=== PATIENT | female | born 1990 | race Hispanic/Latino ===

== ENCOUNTER 2019-05-19 07:09 | Emergency (ER) | payer OTHER ==
[~2019-05-19] VITALS: Ht 160 cm; Wt 131.1 kg
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
[2019-05-19 07:59] VITALS: BP 129/79
== END 2019-05-19 07:58 | disposition home or self-care (01) ==
LOC: FSED 07:09
DX: K08.89 Other specified disorders of teeth and supporting structures (principal); F41.1 Generalized anxiety disorder
CPT/HCPCS: 99282

== ENCOUNTER 2019-10-19 10:55 | Emergency (ER) | payer OTHER ==
[~2019-10-19] VITALS: Ht 160 cm; Wt 141.7 kg
--- OUTSIDE RECORDS SUMMARY | 2019-10-19 10:58 | XMS REPORT | Summary of Care ---
Author Author [facility] - Health Organization [facility] - Health Address Unknown Phone Unavailable Care Team Providers Care Informatics Physician Name Role Phone MartinezMacrosChuck hawthornediane Del Valle PREMIUM REPRESENTATIVE PCP Reason for Visit * Reason Comments Assessment Appointment Encounter Details Care Team Description Date Type Department Jaspal Pérez CNM Assessment; Appointment 08/27/2019 Telephone [facility] [address] [place] [address] Allergies No Known Allergiesdocumented as of this encounter (statuses as of 08/29/2019) Medications End Date Status Medication Sig Dispensed Refills Start Date Active hydrOXYzine 25 mg tablet Take 25 mg by 0 mouth. Active metroNIDAZOLE 1 % gel 0 9 Active ALPRAZolam 2 mg tablet Take 2 mg by 0 mouth. Active ondansetron 8 mg Take 1 tablet 24 tablet 0 tabletIndications: PMS by mouth 9 (premenstrual syndrome) every 8 (eight) hours as needed for Nausea and Vomiting (N/V) (before and during menstrual cycle). Active lidocaine 4% 4 % (40 Apply 1 mL to 50 mL 0 mg/mL) topical area(s) as 9 solutionIndications: needed for Vaginal lesion Local anesthesia (pain). documented as of this encounter (statuses as of 08/29/2019) Active Problems Problem Noted Date Noncompliance 06/08/2018 GBS (group B Streptococcus carrier), +RV culture, currently 05/25/2018 Nausea and vomiting during prior to 22 weeks gestation 01/18/2018 Papanicolaou smear of cervix with low grade squamous intraepithelial lesion 03/25/2017 (LGSIL) Supervision of high-risk of young multigravida 01/07/2008 Overview: ICD10 Diagnosis Term Health Benefits Specialist Utility documented as of this encounter (statuses as of 08/29/2019) Resolved Problems Problem Noted Date Resolved Date Acute cystitis with hematuria 04/25/2018 06/08/2018 Insufficient care in third trimester 04/25/2018 06/08/2018 Trichomonal vulvovaginitis 03/26/2017 06/08/2018 General counseling for initiation of other contraceptive measures 03/20/2015 06/08/2018 Overview: dmpa initiated on 03/05- Well woman exam with routine gynecological exam 03/20/2015 06/08/2018 Overview: States had PAP this year ARELIS Obese 03/20/2015 06/08/2018 Dysmenorrhea 03/20/2015 06/08/2018 Dysmenorrhea 01/07/2008 03/20/2015 Obesity 01/07/2008 03/20/2015 Overview: ICD10 Diagnosis Term Health Benefits Specialist Utility documented as of this encounter (statuses as of 08/29/2019) Immunizations Name Administration Dates Next Due Influenza Virus Vaccine 11/11/2017 Quad IM 3+ YRS Tdap 04/25/2018 documented as of this encounter Social History Date Tobacco Use Types Packs/Day Years Used Never Smoker Smokeless Tobacco: Never Used Drinks/Week oz/Week Comments Alcohol Use 0 Standard drinks or equivalent 0.0 social. Last was 10/2017 Yes Sex Assigned at Date Recorded Not on file Industry Job Start Date Occupation Not on file Not on file Not on file Travel End Travel History Travel Start No recent travel history available. documented as of this encounter Last Filed Vital Signs Not on filedocumented in this encounter Plan of Treatment Health Maintenance Due Date Last Done Comments VARICELLA VACCINES (1 of 1990 2 - 2-dose childhood series) INFLUENZA VACCINE (#1) 2019 11/11/2017 PAP SMEAR 01/18/2022 01/18/2019, 03/05/2017, 08/15/2007, Additional history exists DTaP,Tdap,and Td Vaccines 04/25/2028 04/25/2018 (2 - Td) PNEUMOCOCCAL 0-64 YEARS Aged Out No longer eligible based COMBINED SERIES on patient's age to complete this topic documented as of this encounter Results Not on filedocumented in this encounter Insurance Type Payer Benefit Subscriber ID Effective Phone Address Plan / Dates Group Medicaid [facility] xxxxxxxxx 2017-P [address] MEDICAID HEALTH resent [id number] [place], [place] [address] Medicaid [id number] xxxxxxxxx 2015-P [phone] Dharmesh GRAY resent [id number] [place] [address] documented as of this encounter
[2019-10-19] MEDS ORDERED: IBUPROFEN 600 MG TAB PO STA (11:43)
[2019-10-19] MEDS ORDERED: ONDANSETRON HCL 4 MG ORAL DISINTEGRATING TAB PO ONE (11:45)
[2019-10-19] MEDS ORDERED: PENICILLIN G BENZATHINE LA 1.2 MU TBX IM STA (11:47)
[2019-10-19] MEDS ORDERED: ONDANSETRON HCL 4 MG ORAL DISINTEGRATING TAB ONE (11:49)
[2019-10-19] MEDS ORDERED: IBUPROFEN 600 MG TAB ONE (11:50)
--- NOTE | 2019-10-19 11:52 | NUR ---
Urine culture collected and sent to the lab for transport via manager research to the hospital lab.
[2019-10-19] MEDS ORDERED: PENICILLIN G BENZATHINE LA 1.2 MU TBX ONE (11:53)
[2019-10-19 11:58] VITALS: BP 134/73
[2019-10-19] MEDS ORDERED: TESSALON PERLE100 MG PO (12:01)
[2019-10-19] MEDS ORDERED: AUGMENTIN 875-1 EACH PO (12:01)
[2019-10-19] MEDS ORDERED: ZOFRAN4 MG SL (12:01)
[2019-10-19] MEDS ORDERED: TAMIFLU75 MG PO (12:01)
== END 2019-10-19 12:19 | disposition home or self-care (01) ==
LOC: FSED 10:55
DX: R50.9 Fever, unspecified (principal); R05 Cough; J11.1 Influenza due to unidentified influenza virus with other respiratory manifestations
CPT/HCPCS: 81003; 81025; 83518; 87086; 87400; 99283; J0561; Q0162

== ENCOUNTER 2019-10-31 12:42 | Emergency (ER) | payer OTHER ==
[~2019-10-31] VITALS: Ht 160 cm; Wt 141.5 kg
[~2019-10-31 12:42] MED LIST: AUGMENTIN 875-1 EACH PO; TAMIFLU75 MG PO; TESSALON PERLE100 MG PO; ZOFRAN4 MG SL
[2019-10-31] MEDS ORDERED: PENCILLIN V PO250 MG PO (13:19)
[2019-10-31] MEDS ORDERED: ULTRAM50 MG PO (13:20)
[2019-10-31] MEDS ORDERED: TYLENOL WITH C1 EACH PO (13:35)
== END 2019-10-31 13:30 | disposition home or self-care (01) ==
LOC: FSED 12:42
DX: K04.7 Periapical abscess without sinus (principal); K02.9 Dental caries, unspecified; F31.9 Bipolar disorder, unspecified
CPT/HCPCS: 99282

== ENCOUNTER 2019-12-24 13:46 | Emergency (ER) | payer OTHER ==
[~2019-12-24] VITALS: Ht 160 cm; Wt 147.4 kg
[~2019-12-24 13:46] MED LIST changes: +PENCILLIN V PO250 MG PO; +TYLENOL WITH C1 EACH PO; +ULTRAM50 MG PO
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
--- OUTSIDE RECORDS SUMMARY | 2019-12-24 13:49 | XMS REPORT | Summary of Care ---
Author Author [facility] Organization [facility] Address Unknown Phone Unavailable Encounter LETTY Bruno(MIGUEL) [id number] Date(s): 12/19/18 - 12/19/[address] [address]- Encounter Diagnosis Abscess, dental (Discharge Diagnosis) - 12/19/18 Bacterial upper respiratory infection (Discharge Diagnosis) - 12/19/18 Discharge Disposition: Home or Self Care Attending Physician: Katerin Madison MD Vital Signs 1 2 3 Most recent to oldest [Reference Range]: 97.9 DegF (12/19/18 9:34 AM) 98.1 DegF (12/19/18 7:21 AM) 98.1 DegF (12/19/18 6:19 AM) Temperature Oral [96.4-99.1 DegF] 119/60 mmHg (12/19/18 9:34 AM) 112/56 mmHg (12/19/18 7:21 AM) 131/84 mmHg (12/19/18 6:19 AM) Blood Pressure [90-140/60-90 mmHg] 18 BRMIN (12/19/18 9:34 AM) 20 BRMIN (12/19/18 7:21 AM) 22 BRMIN *HI* (12/19/18 6:19 AM) Respiratory Rate [14-20 BRMIN] 90 bpm (12/19/18 9:34 AM) 90 bpm (12/19/18 7:21 AM) 98 bpm (12/19/18 6:19 AM) Peripheral Pulse Rate [60-100 bpm] Problem List Condition Effective Dates Status Health Status Informan t Anxiety and Active depression(Confirmed ) Bipolar disease, Active chronic(Confirmed) Morbid Active obesity(Confirmed) (Confirmed) 06/20/18 - 06/21/18 Resolved (Confirmed) 06/15/07 - 03/01/08 Resolved Allergies, Adverse Reactions, Alerts No Known Medication Allergies Medications Augmentin 875 mg oral tablet 875 mg = 1 tab, PO, BID, # 14 tab, 0 Refill(s), [id number] Start Date: 12/19/18 Stop Date: 12/26/18 Status: Ordered Bromfed DM oral syrup 5 mL, PO, QID, # 100 mL, 0 Refill(s), [id number] Start Date: 12/19/18 Stop Date: 12/24/18 Status: Ordered ibuprofen 600 mg oral tablet 600 mg, PO, QID, PRN Pain, Take with food, X 5 day, # 20 tab, 0 Refill(s), [id number] Start Date: 12/19/18 Stop Date: 12/24/18 Status: Ordered Motrin 800 mg, Route: PO, Drug form: TAB, ONCE, Dosing Weight 137.273, kg, Priority: ST AT, Start date: 12/19/18 7:20:00 CDT, Stop date: 12/19/18 7:20:00 CDT Start Date: 12/19/18 Stop Date: 12/19/18 Status: Completed Results Most recent to 1 oldest [Reference Range]: Grp A Strep Scr Negative [Negative] (12/19/18 7:27 AM) Immunizations Given and Recorded Vaccine Date Status Refusal Reason measles/mumps/rubella virus vaccine 06/22/18 Gi luz maria Procedures Procedure Date Related Diagnosis Body Site Status Unremarkable Completed Social History Social History Type Response Substance Abuse Use: None. Sexual Sexually active: Yes. Exercise Exercise frequency: Daily. Employment/School Status: Unemployed. Alcohol Current, Frequency: 1-2 joselin es per month. Smoking Status Never smoker; Type: Cigaret jessica; Concerns about tobacco use in household: No; Exposure to Tobacco Smoke None; Cig arette Smoking Last 365 Days No; Reg Smoking Cessation Counseling No entered on: 12/19/18 Assessment and Plan No data available for this section
--- OUTSIDE RECORDS SUMMARY | 2019-12-24 13:49 | XMS REPORT | Summary of Care ---
Author Author [facility] Address Unknown Phone Unavailable Encounter LETTY Bruno([facility]) [id number] Date(s): 05/22/19 - 05/22/19 [facility] [address] [place] [address]- Encounter Diagnosis Mouth pain (Discharge Diagnosis) - 05/22/19 Discharge Disposition: Home or Self Care Attending Physician: Alessandro Wetzel MD Vital Signs Most recent to 1 oldest [Reference Range]: Height 160.02 cm (05/22/19 7:48 AM) Temperature Oral 97.9 DegF [96.4-99.1 DegF] (05/22/19 7:48 AM) Blood Pressure 110/78 mmHg [90-140/60-90 mmHg] (05/22/19 7:48 AM) Respiratory Rate 18 BRMIN [14-20 BRMIN] (05/22/19 7:48 AM) Peripheral Pulse 94 bpm Rate [60-100 bpm] (05/22/19 7:48 AM) Weight 146 kg (05/22/19 7:48 AM) Body Mass Index 57.02 m2 (05/22/19 7:48 AM) Problem List Condition Effective Dates Status Health Status Informan t Anxiety and Active depression(Confirmed ) Bipolar disease, Active chronic(Confirmed) Encounter for weight Active loss counseling(Confirmed ) Morbid Active obesity(Confirmed) (Confirmed) 06/15/07 - 03/01/08 Resolved (Confirmed) 06/20/18 - 06/21/18 Resolved Rosacea(Confirmed) Active Allergies, Adverse Reactions, Alerts No Known Medication Allergies Medications Tylenol with Codeine #4 oral tablet 1 tab, PO, BID, PRN pain, # 10 tab, 0 Refill(s) Start Date: 05/22/19 Stop Date: 05/26/19 Status: Ordered Xanax 2 mg oral tablet 2 mg = 1 tab, PO, BID, PRN anxiety, X 10 day, # 10 tab, 0 Refill(s) Start Date: 05/22/19 Stop Date: 06/01/19 Status: Ordered Results No data available for this section Immunizations Given and Recorded Vaccine Date Status Refusal Reason measles/mumps/rubella virus vaccine 06/22/18 Gi luz maria Procedures Procedure Date Related Diagnosis Body Site Status Unremarkable Completed Social History Social History Type Response Alcohol Current, Frequency: 1-2 joselin es per month. Employment/School Status: Unemployed. Exercise Exercise frequency: Daily. Sexual Sexually active: Yes. Substance Abuse Use: None. Smoking Status Never smoker; Type: Cigaret jessica; Concerns about tobacco use in household: No; Exposure to Tobacco Smoke None; Cig arette Smoking Last 365 Days No; Reg Smoking Cessation Counseling No entered on: 05/22/19 Assessment and Plan No data available for this section
--- OUTSIDE RECORDS SUMMARY | 2019-12-24 13:49 | XMS REPORT | Summary of Care ---
Author Author [facility] Organization [facility] Address Unknown Phone Unavailable Encounter HQ Encntr_alisaima(FIN) [id number] Date(s): 07/05/19 - 07/06/19 [facility] [place] [address] [place] [address]- [phone] Vital Signs No data available for this section Problem List Condition Effective Dates Status Health Status Informan t Anxiety and Active depression(Confirmed ) Bipolar disease, Active chronic(Confirmed) Encounter for weight Active loss counseling(Confirmed ) Morbid Active obesity(Confirmed) (Confirmed) 06/15/07 - 03/01/08 Resolved (Confirmed) 06/20/18 - 06/21/18 Resolved Rosacea(Confirmed) Active Allergies, Adverse Reactions, Alerts No Known Allergies Medications No data available for this section Results No data available for this section [...] Reg Smoking Cessation Counseling No entered on: 05/26/19 Assessment and Plan No data available for this section
--- OUTSIDE RECORDS SUMMARY | 2019-12-24 13:49 | XMS REPORT | Summary of Care ---
Author Author [facility] Organization [facility] Address Unknown Phone Unavailable Encounter LETTY Bruno(FIN) [id number] Date(s): 05/26/19 - 05/26/19 [facility] [place] [address] [place] [address]- [phone] Discharge Disposition: Home or Self Care Vital Signs Most recent to 1 oldest [Reference Range]: Height 154.94 cm (05/26/19 9:32 AM) Blood Pressure 110/59 mmHg [90-140/60-90 mmHg] (05/26/19 9:32 AM) Respiratory Rate 19 BRMIN [14-20 BRMIN] (05/26/19 9:32 AM) Peripheral Pulse 98 bpm Rate [60-100 bpm] (05/26/19 9:32 AM) Weight 145.057 kg (05/26/19 9:32 AM) Body Mass Index 60.42 m2 (05/26/19 9:32 AM) Problem List Condition Effective Dates Status Health Status Informan t Anxiety and Active depression(Confirmed ) Bipolar disease, Active chronic(Confirmed) Encounter for weight Active loss counseling(Confirmed ) Morbid Active obesity(Confirmed) (Confirmed) 06/15/07 - 03/01/08 Resolved (Confirmed) 06/20/18 - 06/21/18 Resolved Rosacea(Confirmed) Active Allergies, Adverse Reactions, Alerts No Known Allergies Medications hydrOXYzine hydrochloride 25 mg oral tablet 25 mg = 1 tab, PO, QID, PRN Anxiety, X 30 day, # 120 tab, 0 Refill(s), Pharmacy: [id number] Start Date: 05/26/19 Stop Date: 06/25/19 Status: Ordered SEROquel 100 mg oral tablet 100 mg = 1 tab, PO, BID, # 60 tab, 3 Refill(s), Pharmacy: [id number] Start Date: 05/26/19 Status: Ordered Results No data available for [...]
--- OUTSIDE RECORDS SUMMARY | 2019-12-24 13:49 | XMS REPORT | Summary of Care ---
Author Author [facility] Organization [facility] Address Unknown Phone Unavailable Encounter LETTY Bruno(MIGUEL) [id number] Date(s): 05/24/18 - 05/24/[address] [address]- Encounter Diagnosis contractions (Discharge Diagnosis) - 05/24/18 Unspecified infection of urinary tract in , third trimester (Final) - False labor before 37 completed weeks of gestation, third trimester (Final) - 05/27/18 35 weeks gestation of (Final) - Discharge Disposition: Home or Self Care Attending Physician: Torri Vernon MD Vital Signs 1 2 3 Most recent to oldest [Reference Range]: 162.56 cm (05/24/18 9:00 PM) Height 98.2 DegF (05/24/18 9:00 PM) 98.5 DegF (05/24/18 8:28 PM) Temperature Oral [96.4-99.1 DegF] 118/57 mmHg (05/24/18 10:05 PM) 111/71 mmHg (05/24/18 9:00 PM) 116/70 mmHg (05/24/18 8:28 PM) Blood Pressure [90-140/60-90 mmHg] 18 BRMIN (05/24/18 10:05 PM) 20 BRMIN (05/24/18 9:00 PM) 19 BRMIN (05/24/18 8:28 PM) Respiratory Rate [14-20 BRMIN] 125 bpm *HI* (05/24/18 9:00 PM) 121 bpm *HI* (05/24/18 8:28 PM) Peripheral Pulse Rate [60-100 bpm] 131 kg (05/24/18 9:00 PM) 129.545 kg (05/24/18 8:28 PM) Weight 49.57 m2 (05/24/18 9:00 PM) Body Mass Index Problem List Condition Effective Dates Status Health Status Informan t Anxiety and Active depression(Confirmed ) Bipolar disease, Active chronic(Confirmed) Morbid Active obesity(Confirmed) (Confirmed) 06/20/18 - 06/21/18 Resolved (Confirmed) 06/15/07 - 03/01/08 Resolved Allergies, Adverse Reactions, Alerts No Known Medication Allergies Medications Dulcolax Laxative 5 mg, PO, Daily, 0 Refill(s) Start Date: 05/24/18 Stop Date: 11/28/18 Status: Discontinued Flagyl 500 mg oral tablet 2,000 mg = 4 tab, PO, ONCE, # 4 tab, 1 Refill(s) Start Date: 05/24/18 Stop Date: 06/23/18 Status: Discontinued Keflex 500 mg oral capsule 500 mg = 1 cap, PO, QID, X 7 day, # 28 cap, 0 Refill(s) Start Date: 05/24/18 Stop Date: 05/31/18 Status: Completed promethazine 0 Refill(s) Start Date: 05/24/18 Stop Date: 06/23/18 Status: Discontinued Tylenol 1,000 mg, Route: PO, ONCE, Dosing Weight 131, kg, Start date: 05/24/18 21:52:00 CDT, Stop date: 05/24/18 21:52:00 CDT Start Date: 05/24/18 Stop Date: 05/24/18 Status: Completed Tylenol PO, 0 Refill(s) Start Date: 05/24/18 Stop Date: 11/28/18 Status: Discontinued Results Most recent to 1 oldest [Reference Range]: UA Trans Epi [<=0] OCC *NA* (05/24/18 9:22 PM) UA Bacteria [None Occasional /HPF Seen /HPF] *NA* (05/24/18 9:22 PM) UA Bili [Negative] Negative *NA* (05/24/18 9:22 PM) UA Blood [Negative] Moderate *ABN* (05/24/18 9:22 PM) UA Color [Yellow] Yellow *NA* (05/24/18 9:22 PM) UA Glucose [Negative Negative mg/dL mg/dL] *NA* (05/24/18 9:22 PM) UA Hyal Cast [0-2 3 /LPF /LPF] *HI* (05/24/18 9:22 PM) UA Ketones Negative *NA* (05/24/18 9:22 PM) UA Leuk Est Large [Negative] *ABN* (05/24/18 9:22 PM) UA Mucus [None Seen Few /LPF /LPF] *NA* (05/24/18 9:22 PM) UA Nitrite Negative [Negative] (05/24/18 9:22 PM) UA pH [5.0-8.0] 5.0 (05/24/18 9:22 PM) UA Protein [Negative Negative mg/dL mg/dL] (05/24/18 9:22 PM) UA RBC [0-2 /HPF] 17 /HPF *HI* (05/24/18 9:22 PM) UA Spec Grav 1.017 [<=1.030] (05/24/18 9:22 PM) UA Sq Epi [Few /LPF] Few /LPF *NA* (05/24/18 9:22 PM) UA Trichomonas [None Many /HPF Seen /HPF] *ABN* (05/24/18 9:22 PM) UA Turbidity [Clear] Slight *ABN* (05/24/18 9:22 PM) UA Urobilinogen 2.0 mg/dL [0.1-1.0 mg/dL] *HI* (05/24/18 9:22 PM) UA WBC [0-5 /HPF] 15 /HPF *HI* (05/24/18 9:22 PM) Micro? Performed (05/24/18 9:22 PM) Immunizations Given and Recorded Vaccine Date Status [...] Reg Smoking Cessation Counseling No entered on: 11/28/18 Assessment and Plan No data available for this section
--- OUTSIDE RECORDS SUMMARY | 2019-12-24 13:49 | XMS REPORT | Summary of Care ---
Author Author [facility] Organization [facility] Address Unknown Phone Unavailable Encounter LETTY Bruno(FIN) [id number] Date(s): 10/06/19 - 10/06/19 [facility] [address] [place] [address]- [phone] Discharge Disposition: Home or Self Care Attending Physician: Sheryl Richards MD Vital Signs Most recent to 1 oldest [Reference Range]: Temperature Oral 98.3 DegF [96.4-99.1 DegF] (10/06/19 3:16 PM) Blood Pressure 136/89 mmHg [90-140/60-90 mmHg] (10/06/19 3:16 PM) Peripheral Pulse 72 bpm Rate [60-100 bpm] (10/06/19 3:16 PM) Problem List Condition Effective Dates Status Health Status Informan t Anxiety and Active depression(Confirmed ) Bipolar disease, Active chronic(Confirmed) Encounter for weight Active loss counseling(Confirmed ) Morbid Active obesity(Confirmed) (Confirmed) 06/15/07 - 03/01/08 Resolved (Confirmed) 06/20/18 - 06/21/18 Resolved Rosacea(Confirmed) Active Allergies, Adverse Reactions, Alerts No Known Allergies Medications Augmentin 875 mg oral tablet 875 mg = 1 tab, PO, BID, X 10 day, # 20 tab, 0 Refill(s), Pharmacy: [facility]/pharmacy #[id number] Start Date: 10/06/19 Stop Date: 10/16/19 Status: Ordered ibuprofen 800 mg oral tablet 800 mg = 1 tab, PO, TID, 0 Refill(s) Start Date: 10/06/19 Status: Ordered Tylenol with Codeine #3 oral tablet 1 tab, PO, TID, PRN Pain, NEEDED, X 5 day, # 15 tab, 0 Refill(s), Pharmacy: [facility]/pharmacy #[id number] Start Date: 10/06/19 Stop Date: 10/11/19 Status: Ordered Results No data available for [...] Reg Smoking Cessation Counseling No entered on: 10/06/19 Assessment and Plan No data available for this section
--- OUTSIDE RECORDS SUMMARY | 2019-12-24 13:49 | XMS REPORT | Summary of Care ---
Author Author [facility] Organization [facility] Address Unknown Phone Unavailable Encounter LETTY Bruno(MIGUEL) [id number] Date(s): 08/08/17 - 08/08/17 [facility] [address] [place] [address]- Discharge Diagnosis: Drug-seeking behavior Discharge Disposition: Home or Self Care Attending Physician: Shaun Swanson MD Vital Signs Most recent to 1 2 oldest [Reference Range]: Temperature Oral 98.5 DegF 98.4 DegF [96.4-99.1 DegF] (08/08/17 11:35 PM) (08/08/17 9:39 PM) Blood Pressure 129/78 mmHg 136/83 mmHg [90-140/60-90 mmHg] (08/08/17 11:35 PM) (08/08/17 9:39 PM ) Respiratory Rate 18 BRMIN 18 BRMIN [14-20 BRMIN] (08/08/17 11:35 PM) (08/08/17 9:39 PM) Peripheral Pulse 97 bpm 107 bpm Rate [60-100 bpm] (08/08/17 11:35 PM) *HI* (08/08/17 9:39 PM) Weight 127.273 kg (08/08/17 9:39 PM) Problem List No data available for this section Allergies, Adverse Reactions, Alerts Substance Reaction Severity Status NKDA Active Medications Motrin 800 mg, Route: PO, Drug form: TAB, ONCE, Dosing Weight 127.273, kg, Priority: ST AT, Start date: 08/08/17 23:10:00 ITALIAN LECTURER, Stop date: 08/08/17 23:10:00 ITALIAN LECTURER Start Date: 08/08/17 Stop Date: 08/08/17 Status: Completed [place] 10/325 oral tablet 1 tab, Route: PO, Drug Form: TAB, Dosing Weight 127.273, kg, ONCE, STAT, Start d ate: 08/08/17 23:10:00 ITALIAN LECTURER, Stop date: 08/08/17 23:10:00 ITALIAN LECTURER Start Date: 08/08/17 Stop Date: 08/08/17 Status: Completed Results No data available for this section Immunizations No data available for this section Procedures No data available for this section Social History Social History Type Response Smoking Status Never smoker; Exposure to T obacco Smoke None; Cigarette Smoking Last 365 Days No; Reg Smoking Cessation Counseli hema No Assessment and Plan No data available for this section
--- OUTSIDE RECORDS SUMMARY | 2019-12-24 13:49 | XMS REPORT | Summary of Care ---
Author Author [facility] Organization [facility] Address Unknown Phone Unavailable Encounter [facility] Encntr_alias(FIN) [id number] Date(s): 01/23/19 - 01/23/[address] [facility] [address] [place] [address]- [phone] Attending Physician: Malcolm Flores DNP, RN, EXPERT MEDICAL WRITER- Vital Signs No data available for this section Problem List Condition Effective Dates Status Health Status Informan t Anxiety and Active depression(Confirmed ) Bipolar disease, Active chronic(Confirmed) Encounter for weight Active loss counseling(Confirmed ) Morbid Active obesity(Confirmed) (Confirmed) 06/20/18 - 06/21/18 Resolved (Confirmed) 06/15/07 - 03/01/08 Resolved Rosacea(Confirmed) Active Allergies, Adverse Reactions, Alerts No Known Medication Allergies Medications No data available for this [...] Reg Smoking Cessation Counseling No entered on: 01/23/19 Assessment and Plan No data available for this section
--- OUTSIDE RECORDS SUMMARY | 2019-12-24 13:49 | XMS REPORT | Summary of Care ---
Author Author [facility] [employer] Organization [facility] Address Unknown Phone Unavailable Encounter LETTY Bruno(MIGUEL) [id number] Date(s): 11/28/18 - 11/28/18 [facility] [address] [place] [address]- [phone] Discharge Disposition: Home or Self Care Attending Physician: Ying Turcios DO Vital Signs Most recent to 1 oldest [Reference Range]: Height 160.02 cm (11/28/18 2:15 PM) Temperature Oral 98.3 DegF [96.4-99.1 DegF] (11/28/18 2:15 PM) Blood Pressure 131/91 mmHg [90-140/60-90 mmHg] (11/28/18 2:15 PM) Peripheral Pulse 83 bpm Rate [60-100 bpm] (11/28/18 2:15 PM) Weight 137.273 kg (11/28/18 2:15 PM) Body Mass Index 53.61 m2 (11/28/18 2:15 PM) Problem List Condition Effective Dates Status Health Status Informan t Anxiety and Active depression(Confirmed ) Bipolar disease, Active chronic(Confirmed) Morbid Active obesity(Confirmed) (Confirmed) 06/20/18 - 06/21/18 Resolved (Confirmed) 06/15/07 - 03/01/08 Resolved Allergies, Adverse Reactions, Alerts Substance Reaction Severity Status NKDA Active Medications Excedrin 2 tab, PO, Q6H, -5 times daily for headaches., 0 Refill(s) Start Date: 11/28/18 Status: Ordered hydrOXYzine hydrochloride 25 mg oral tablet 25 mg = 1 tab, PO, QID, PRN Anxiety, X 14 day, # 56 tab, 2 Refill(s), Pharmacy: [facility]/pharmacy #[id number] Start Date: 11/28/18 Stop Date: 01/09/19 Status: Ordered ibuprofen 800 mg oral tablet See Instructions, 1 tab PO 5 times daily ( confirmed ), 0 Refill(s) Start Date: 11/28/18 Status: Ordered SEROquel 50 mg oral tablet 50 mg = 1 tab, PO, BID, # 180 tab, 0 Refill(s), Pharmacy: [facility]/pharmacy #[id number] Start Date: 11/28/18 Status: Ordered Results No data available for [...]
--- OUTSIDE RECORDS SUMMARY | 2019-12-24 13:49 | XMS REPORT | Summary of Care ---
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) - Dental infection (Discharge Diagnosis) - 07/19/18 History of depression (Discharge Diagnosis) - 07/19/18 Discharge Disposition: Home or Self Care Attending Physician: Katerin Madison MD Vital Signs Most recent to 1 2 oldest [Reference Range]: Temperature Oral 98.4 DegF 98.1 DegF [96.4-99.1 DegF] (07/19/18 8:22 PM) (07/19/18 3:04 PM) Blood Pressure 104/86 mmHg 114/84 mmHg [90-140/60-90 mmHg] (07/19/18 8:22 PM) (07/19/18 3:04 PM) Respiratory Rate 18 BRMIN 16 BRMIN [14-20 BRMIN] (07/19/18 8:22 PM) (07/19/18 3:04 PM) Peripheral Pulse 91 bpm 112 bpm Rate [60-100 bpm] (07/19/18 8:22 PM) *HI* (07/19/18 3:04 PM) Weight 128.636 kg (07/19/18 3:04 PM) Problem List Condition Effective Dates Status Health Status Informan t Anxiety and Active depression(Confirmed ) Bipolar disease, Active chronic(Confirmed) Encounter for weight Active loss counseling(Confirmed ) Morbid Active obesity(Confirmed) (Confirmed) 06/20/18 - 06/21/18 Resolved (Confirmed) 06/15/07 - 03/01/08 Resolved Rosacea(Confirmed) Active Allergies, Adverse Reactions, Alerts No Known Medication Allergies Medications Augmentin 875 mg oral tablet 875 mg = 1 tab, PO, Q12H, X 10 day, # 20 tab, 0 Refill(s) Start Date: 07/19/18 Stop Date: 07/29/18 Status: Completed Saline Flush 0.9% 10 mL, Route: IVP, Drug Form: INJ, Dosing Weight 130.909, kg, PRN, PRN Line Flus h, Start date: 07/19/18 15:06:00 CLOTH BRUSHING AND SUEDING SUPERVISOR, 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, Stop date: 08/18/18 15:0 5:00 [employer]OTH [employer]ING [employer]EDING SUPERVISOR Start Date: 07/19/18 Stop Date: 07/19/18 Status: Discontinued Tylenol with Codeine #3 oral tablet 2 tab, Route: PO, Drug Form: TAB, Dosing Weight 128.636, kg, ONCE, STAT, Start d ate: 07/19/18 19:57:00 CLOTH BR[employer]ING [employer]EDING SUPERVISOR, Stop date: 07/19/18 19:57:00 [employer]OTH [employer]ING [employer]EDING SUPERVISOR Start Date: 07/19/18 Stop Date: 07/19/18 Status: Completed Tylenol with Codeine #4 oral tablet 1 tab, PO, Q6H, PRN pain, X 7 day, # 24 tab, 0 Refill(s) Start Date: 07/19/18 Stop Date: 07/26/18 Status: Completed Results No data available for [...]
--- OUTSIDE RECORDS SUMMARY | 2019-12-24 13:49 | XMS REPORT | Continuity of Care Document ---
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 EXAM: Chest 2 views DX DATE: 12/19/2018 7:19 CDT. INDICATION: Cough. COMPARISON: None available. TECHNIQUE: PA and lateral chest radiographs. FINDINGS: Lines, Tubes and Hardware: None. Lungs and Pleura: No focal consolidation, pleural effusion, or pneumothorax is identified. Heart and Mediastinum: The heart size is normal. The mediastinal contours are unremarkable. Pulmonary vascularity is normal. Bones: No acute skeletal abnormality is identified. IMPRESSION: No acute abnormality. 12/19/[address] [facility] Consultation Notes No Data Provided for This Section Discharge Summaries No Data Provided for This Section History and Physicals No Data Provided for This Section Vital Signs Vital Sign Value Date Comments Source Systolic (mm Hg) 136 10/06/2019 [facility] Diastolic (mm Hg) 89 10/06/2019 [facility] Heart Rate 72 10/06/2019 [facility] Temperature Oral (F) 98.3 F 10/06/2019 [facility] Systolic (mm Hg) 110 05/26/2019 [facility] Diastolic (mm Hg) 59 05/26/2019 [facility] Heart Rate 98 05/26/2019 [facility] Respitory Rate 19 05/26/2019 [facility] Height 154.94 cm 05/26/2019 [facility] Weight 145.057 05/26/2019 [facility] BMI Calculated 60.42 05/26/2019 [facility] Systolic (mm Hg) 110 05/22/2019 [facility] Diastolic (mm Hg) 78 05/22/2019 [facility] Heart Rate 94 05/22/2019 [facility] Respitory Rate 18 05/22/2019 [facility] Temperature Oral (F) 97.9 F 05/22/2019 [facility] Height 160.02 cm 05/22/2019 [facility] BMI Calculated 57.02 05/22/2019 [facility] Weight 146 05/22/2019 [facility] BMI Calculated 55.03 01/11/2019 [facility] Height 160.02 cm 01/11/2019 [facility] Weight 140.909 01/11/2019 [facility] Systolic (mm Hg) 133 01/11/2019 [facility] Diastolic (mm Hg) 82 01/11/2019 [facility] Heart Rate 84 01/11/2019 [facility] Temperature Oral (F) 97.9 F 01/11/2019 [facility] Weight 127.273 01/08/[address] [facility] Temperature Oral (F) 98.1 F 01/08/[address] [facility] Systolic (mm Hg) 111 01/08/[address] [facility] Diastolic (mm Hg) 76 01/08/[address] [facility] Heart Rate 90 01/08/[address] [facility] Respitory Rate 18 01/08/[address] [facility] Temperature Oral (F) 97.9 F 12/19/[address] [facility] Respitory Rate 18 12/19/[address] [facility] Heart Rate 90 12/19/[address] [facility] Systolic (mm Hg) 119 12/19/[address] [facility] Diastolic (mm Hg) 60 12/19/[address] [facility] Systolic (mm Hg) 112 12/19/[address] [facility] Diastolic (mm Hg) 56 12/19/[address] [facility] Temperature Oral (F) 98.1 F 12/19/[address] [facility] Heart Rate 90 12/19/[address] [facility] Respitory Rate 20 12/19/[address] [facility] Temperature Oral (F) 98.1 F 12/19/[address] [facility] Systolic (mm Hg) 131 12/19/[address] [facility] Diastolic (mm Hg) 84 12/19/[address] [facility] Heart Rate 98 12/19/[address] [facility] Respitory Rate 22 12/19/[address] [facility] Weight 137.273 11/28/2018 [facility] BMI Calculated 53.61 11/28/2018 [facility] Height 160.02 cm 11/28/2018 [facility] Systolic (mm Hg) 131 11/28/2018 [facility] Diastolic (mm Hg) 91 11/28/2018 [facility] Temperature Oral (F) 98.3 F 11/28/2018 [facility] Heart Rate 83 11/28/2018 [facility] Heart Rate 91 07/20/[address] [facility] Temperature Oral (F) 98.4 F 07/20/[address] [facility] Systolic (mm Hg) 104 07/20/[address] [facility] Diastolic (mm Hg) 86 07/20/[address] [facility] Respitory Rate 18 07/20/[address] [facility] Weight 128.636 07/19/[address] [facility] Temperature Oral (F) 98.1 F 07/19/[address] [facility] Systolic (mm Hg) 114 07/19/[address] [facility] Diastolic (mm Hg) 84 07/19/[address] [facility] Respitory Rate 16 07/19/[address] [facility] Heart Rate 112 07/19/[address] [facility] Systolic (mm Hg) 109 06/23/[address] [facility] Diastolic (mm Hg) 78 06/23/[address] [facility] Respitory Rate 18 06/23/[address] [facility] Heart Rate 83 06/23/[address] [facility] Temperature Oral (F) 97.4 F 06/23/[address] [facility] Respitory Rate 18 06/23/[address] [facility] Systolic (mm Hg) 99 06/23/[address] [facility] Diastolic (mm Hg) 65 06/23/[address] [facility] Temperature Oral (F) 97.4 F 06/23/[address] [facility] Heart Rate 80 06/23/[address] [facility] Temperature Oral (F) 97.6 F 06/22/[address] [facility] Systolic (mm Hg) 109 06/22/[address] [facility] Diastolic (mm Hg) 75 06/22/[address] [facility] Heart Rate 86 06/22/[address] [facility] Respitory Rate 16 06/22/[address] [facility] Height 162.56 cm 06/21/[address] [facility] Weight 130.909 06/21/[address] [facility] BMI Calculated 49.54 06/21/[address] [facility] Height 162.56 cm 06/21/[address] [facility] BMI Calculated 49.54 06/21/[address] [facility] Weight 130.909 06/21/[address] [facility] Weight 130.909 06/21/[address] [facility] Respitory Rate 18 05/25/[address] [facility] Systolic (mm Hg) 118 05/25/[address] [facility] Diastolic (mm Hg) 57 05/25/[address] [facility] Height 162.56 cm 05/25/[address] [facility] Weight 131 05/25/[address] [facility] BMI Calculated 49.57 05/25/[address] [facility] Temperature Oral (F) 98.2 F 05/25/[address] [facility] Respitory Rate 20 05/25/[address] [facility] Systolic (mm Hg) 111 05/25/[address] [facility] Diastolic (mm Hg) 71 05/25/[address] [facility] Heart Rate 125 05/25/[address] [facility] Weight 129.545 05/25/[address] [facility] Respitory Rate 19 05/25/[address] [facility] Heart Rate 121 05/25/[address] [facility] Systolic (mm Hg) 116 05/25/[address] [facility] Diastolic (mm Hg) 70 05/25/[address] [facility] Temperature Oral (F) 98.5 F 05/25/[address] [facility] Temperature Oral (F) 97.6 F 11/22/2017 [facility] Systolic (mm Hg) 101 11/22/2017 [facility] Diastolic (mm Hg) 65 11/22/2017 [facility] Heart Rate 90 11/22/2017 [facility] Respitory Rate 18 11/22/2017 [facility] Systolic (mm Hg) 129 08/09/2017 [facility] Diastolic (mm Hg) 78 08/09/2017 [facility] Respitory Rate 18 08/09/2017 [facility] Heart Rate 97 08/09/2017 [facility] Temperature Oral (F) 98.5 F 08/09/2017 [facility] Weight 127.273 08/09/2017 [facility] Systolic (mm Hg) 136 08/09/2017 [facility] Diastolic (mm Hg) 83 08/09/2017 [facility] Respitory Rate 18 08/09/2017 [facility] Temperature Oral (F) 98.4 F 08/09/2017 [facility] Heart Rate 107 08/09/2017 [facility] Encounters Location Location Details Encounter Type Encounter Number Reason For Visit Attending Provider ADM Date DC Date Status Source [facility] Emergency [id number] Esau Landon 08/07/2017 08/07/2017 [facility] Emergency [id number] Shaun Swanson 08/09/2017 08/09/2017 [facility] Emergency [id number] Edin Belljennifer 11/22/2017 11/22/2017 [facility] Emergency [id number] Torri Wesley Wren 05/25/2018 05/25/2018 [facility] Inpatient [id number] Peace Nwegbo 06/21/2018 06/23/2018 [facility] Emergency [id number] Katerin Eduvie 07/19/2018 07/20/[address] [facility] Outpatient [id number] Jaylen Newberry 11/28/2018 [facility] Outpatient [id number] Celsa-Beatriz Karolina 11/28/2018 11/29/2018 [facility] Emergency [id number] Cheredin Eduvie 12/19/2018 12/19/2018 [facility] Emergency [id number] Matt Bermudez 01/08/2019 01/08/[address] [facility] Outpatient [id number] Celsa-Beatriz Karolina 01/11/2019 [facility] Outpatient [id number] Celsa-Beatriz Karolina 01/11/2019 01/12/2019 [facility] Ambulatory Pre-Reg [id number] Malcolm Flores 01/23/2019 01/23/2019 [facility] Outpatient [id number] Celsa-Beatriz Karolina 01/25/2019 Active [facility] Emergency [id number] Alessandro Wetzel 05/22/2019 05/22/2019 [facility] Outpatient [id number] Vineet Bingham 05/26/2019 Active [facility] Outpatient [id number] 05/26/2019 05/27/2019 [facility] Phone Message [id number] 07/05/2019 07/07/2019 [facility] Outpatient [id number] Sheryl Richards 10/06/2019 Active [facility] [place] Outpatient [id number] Sheryl Richards 10/06/2019 10/07/2019 [facility] Procedures Procedure Code Date Perfomer Comments Source Unremarkable [id number] [facility] Assessment and Plan Assessment and Plan Date Source Extracted from:Title: Clinical Document Author: Esau Venegas MD Date: 06/23/18 Discharge Summary Ad:06/20 Dc:06/23 Cndt:stable Diet:general Activity:As tolerated no intercourse for 6 weeks Procedures: Meds:Ibuprofen Summary:Admission for spon labor. tx with abx for GBS status. uncomplicated. Pt exam and dc normal. Pt is RNI and given MMR, pt given DMPA for contraception. F/U in 6 weeks at [facility] and will need f/u for hx of abnormal pap. F/U: 6 weeks with primary ob provider. Dx: vag del. Esau Venegas MD, PhD Vessel Liner Attending Extracted from:Title: Clinical Document Author: Esau Venegas MD Date: 06/23/18 Some c/o left foot having difficulty lifting with her gait, but no leg pain, pt also with mild cramping abd pain. No cp, no sob, no leg pain at all just the difficulty in lifting the leg wiht gait. lochia improving. Pt feels well otherwise and denies br engorgement. No GI c/o and pos flatus, some vag discomfort. no other c/o. No sxs of depression. VSS AF FF at U and nontender LE no edema and neg Scarlett's bilat and normal sensation bilat. A: PPD #2 . Pt is rh pos, RNI, and desired DMPA for contraception. Pt is [facility] pt and will f/u with [facility] for her abn pap and continued bc. P: MMR, DMPA, dc today with routine PP instructions and f/u with [facility] in 6 weeks. Ibuprofen for pain management. Esau Venegas MD, PhD Vessel Liner Attending Extracted from:Title: History and Physical Author: Danielle Esqueda MD Date: 06/20/18 History of Present Illness DARCI: 06/23/2018 GA: 39w4d CC: Contractions HPI: Ms. Montalvo is a 28 yo at 39w4d by reported 1T usg who presents to [facility] with complaints of lower back pain and irregular contractions since 0200. She also endoreses N/V since 10am today. She has vomited 3 times. She denies vaginal bleeding, leakage of fluid, UTI sxs, preeclampsia sxs. She endorses good movement. PNC: [facility] since 1st trim. She is complicated by hyperemesis gravidarum this 1. Dated as above 2. PNL and Vero Sono WNL per pt. GBS posi tive 05/25/18 Obstetric History: 1. 02/2008 TSVD, F, no complications, 7# 14oz Past Gynecologic History: Denies STDs Denies abnormal paps PMH: Morbid obesity PSH: None MEDS: PNV Tylenol PRN ALLERGIES: NKDA Social History: Denies T/E/D. Family History: Unknown- Adopted Review of Systems Constitutional symptoms: Negative except as documented in HPI. Skin symptoms: Negative except as documented in HPI. Eye symptoms: Negative except as documented in HPI. ENMT symptoms: Negative except as documented in HPI. Respiratory symptoms: Shortness of breath. Cardiovascular symptoms: Negative except as documented in HPI. Gastrointestinal symptoms: Nausea, vomiting, Abdominal pain: Moderate, pelvic, cramping, pressure, pain. Genitourinary symptoms: Negative except as documented in HPI. Musculoskeletal symptoms: Back pain. Neurologic symptoms: Negative except as documented in HPI. Psychiatric symptoms: Anxiety. Endocrine symptoms: Negative except as documented in HPI. Hematologic/Lymphatic symptoms: Negative except as documented in HPI. Allergy/immunologic symptoms: Negative except as documented in HPI. Health Status Allergies: Allergic Reactions (All) Severity Not Documented NKDA- No reactions were documented.. Physical Examination Vital Signs ED-Vital Signs 06/20/2018 18:59 Temperature Oral 97.5 DegF Normal Peripheral Pulse Rate 108 bpm HI Respiratory Rate 18 BRMIN Normal SpO2 percent 98 % Normal Systolic Blood Pressure 136 mmHg Normal Diastolic Blood Pressure 89 mmHg Normal . Measurements 06/20/2018 19:03 Heparin Dosing Weight (kg) 85.18 06/20/2018 18:59 Weight 130.909 kg Dosing Weight Difference Percent -0.069 % Dosing Weight Collection Method Estimated . General: Alert, mild distress. Skin: Warm, dry. Head: Normocephalic, atraumatic. Neck: Supple. Cardiovascular: Regular rate and rhythm. Respiratory: Lungs are clear to auscultation, respirations are non-labored, breath sounds are equal. Gastrointestinal: Soft, Nontender, gravid. Genitourinary: Normal external genitalia, SVE: 5/80/-2 cephalic by sutures. Neurological: Alert and oriented to person, place, time, and situation. Psychiatric: Cooperative, appropriate mood and affect. Medical Decision Making Differential Diagnosis: , labor. Heart Rate Electronic Monitor baseline 140, Variability Moderate, Accelerations Present, Decelerations Absent, TOCO: q 2-3 minutes. Impression and Plan Ms. Montalvo is a 28 yo at 39w4d by reported 1T usg in active labor. FHTs cat 1. GBS pos. 1. Admit to L&D with routine and no doc labs for active managment of labor with pitocin. -Patient was to be induced at 38 weeks b y [facility], but is unsusre of indication. Will actively manage. 2. GBS positive- PCN for GBS PPX. 3. N/V- will obtain CMP. Zofran PRN. 4. LSIL pap- colposcopy PP, per [facility] gu idelines. Follow up with [facility] outpatient. 5. Dispo- To L&D for pitocin and PCN. 06/23/[address] [facility] Plan of Care No Data Provided for This Section Social History Social History Date Source Social History TypeResponse Substance Abuse Use: None. Sexual Sexually active: Yes. Exercise Exercise frequency: Daily. Employment/School Status: Unemployed. Alcohol Current, Frequency: 1-2 times per month. Smoking Status Never smoker; Type: Cigarettes; Concerns about tobacco use in household: No; Exposure to Tobacco Smoke None; Cigarette Smoking Last 365 Days No; Reg Smoking Cessation Counseling No entered on: 01/23/19 11/28/[address] [facility] Social History TypeResponse Alcohol Current, Frequency: 1-2 times per month. Employment/School Status: Unemployed. Exercise Exercise frequency: Daily. Sexual Sexually active: Yes. Substance Abuse Use: None. Smoking Status Never smoker; Type: Cigarettes; Concerns about tobacco use in household: No; Exposure to Tobacco Smoke None; Cigarette Smoking Last 365 Days No; Reg Smoking Cessation Counseling No entered on: 10/06/19 11/28/2018 [facility] Social History TypeResponse Alcohol Current, Frequency: 1-2 times per month. Employment/School Status: Unemployed. Exercise Exercise frequency: Daily. Sexual Sexually active: Yes. Substance Abuse Use: None. Smoking Status Never smoker; Type: Cigarettes; Concerns about tobacco use in household: No; Exposure to Tobacco Smoke None; Cigarette Smoking Last 365 Days No; Reg Smoking Cessation Counseling No entered on: 05/22/19 11/28/2018 [facility] Social History TypeResponse Smoking Status Never smoker; Type: Cigarettes; Concerns about tobacco use in household: No; Exposure to Tobacco Smoke None; Cigarette Smoking Last 365 Days No; Reg Smoking Cessation Counseling No entered on: 11/22/17 11/22/2017 [facility] Social History TypeResponse Smoking Status Never smoker; Exposure to Tobacco Smoke None; Cigarette Smoking Last 365 Days No; Reg Smoking Cessation Counseling No 08/09/2017 [facility] Family History No Data Provided for This Section Advance Directives No Data Provided for This Section Functional Status No Data Provided for This Section
--- OUTSIDE RECORDS SUMMARY | 2019-12-24 13:49 | XMS REPORT | Summary of Care ---
Author Author [facility] Organization [facility] Address Unknown Phone Unavailable Encounter LETTY Bruno(MIGUEL) [id number] Date(s): 01/08/19 - 01/08/19 [facility] [address] [place] [address]- Discharge Disposition: Left Without Being Seen Attending Physician: Matt Bermudez MD Vital Signs Most recent to 1 oldest [Reference Range]: Temperature Oral 98.1 DegF [96.4-99.1 DegF] (01/08/19 3:31 AM) Blood Pressure 111/76 mmHg [90-140/60-90 mmHg] (01/08/19 3:31 AM) Respiratory Rate 18 BRMIN [14-20 BRMIN] (01/08/19 3:31 AM) Peripheral Pulse 90 bpm Rate [60-100 bpm] (01/08/19 3:31 AM) Weight 127.273 kg (01/08/19 3:31 AM) Problem List Condition Effective Dates Status [...]
--- OUTSIDE RECORDS SUMMARY | 2019-12-24 13:49 | XMS REPORT | Summary of Care ---
Author Author [facility] Organization [facility] Address Unknown Phone Unavailable Encounter LETTY Bruno(MIGUEL) [id number] Date(s): 06/20/18 - 06/23/[address] [address]- Encounter Diagnosis First degree perineal laceration during delivery (Final) - 07/04/18 Streptococcus B carrier state complicating childbirth (Final) - 39 weeks gestation of (Final) - Single live (Final) - Discharge Disposition: Home or Self Care Attending Physician: Danielle Esqueda MD Admitting Physician: Danielle Esqueda MD Vital Signs 1 2 3 Most recent to oldest [Reference Range]: 162.56 cm (06/20/18 8:26 PM) 162.56 cm (06/20/18 7:26 PM) Height 97.4 DegF (06/23/18 8:28 AM) 97.4 DegF (06/23/18 12:12 AM) 97.6 DegF (06/22/18 5:08 PM) Temperature Oral [96.4-99.1 DegF] 109/78 mmHg (06/23/18 8:28 AM) 99/65 mmHg (06/23/18 12:12 AM) 109/75 mmHg (06/22/18 5:08 PM) Blood Pressure [90-140/60-90 mmHg] 18 BRMIN (06/23/18 8:28 AM) 18 BRMIN (06/23/18 12:12 AM) 16 BRMIN (06/22/18 5:08 PM) Respiratory Rate [14-20 BRMIN] 83 bpm (06/23/18 8:28 AM) 80 bpm (06/23/18 12:12 AM) 86 bpm (06/22/18 5:08 PM) Peripheral Pulse Rate [60-100 bpm] 130.909 kg (06/20/18 8:26 PM) 130.909 kg (06/20/18 7:26 PM) 130.909 kg (06/20/18 6:59 PM) Weight 49.54 m2 (06/20/18 8:26 PM) 49.54 m2 (06/20/18 7:26 PM) Body Mass Index Problem List Condition Effective Dates Status Health Status Informan t Anxiety and Active depression(Confirmed ) Bipolar disease, Active chronic(Confirmed) Morbid Active obesity(Confirmed) (Confirmed) 06/20/18 - 06/21/18 Resolved (Confirmed) 06/15/07 - 03/01/08 Resolved Allergies, Adverse Reactions, Alerts No Known Medication Allergies Medications acetaminophen 650 mg, 2 tab, Route: PO, Drug form: TAB, Q6H, Dosing Weight 130.909, kg, PRN Pa in Score 1-3, Start date: 06/20/18 20:51:00 INTELLIGENCE OFFICER BASIC, 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, Stop date: 20:50:00 INTELLIGENCE OFFICER BASIC Notes: Do not exceed 4 gm/day. (Same as: Tylenol) Start Date: 06/20/18 Stop Date: 06/23/18 Status: Discontinued acetaminophen-hydrocodone 325 mg-10 mg oral tablet 1 tab, Route: PO, Drug Form: TAB, Dosing Weight 130.909, kg, Q4H, PRN Pain Score 7-10, Start date: 06/21/18 4:32:00 INTELLIGENCE OFFICER BASIC, 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, Stop date: 07/21/18 4 :31:00 INTELLIGENCE OFFICER BASIC Notes: Do not exceed 4gm/day of acetaminophen. (Same as: Hughes 325/10) Start Date: 06/21/18 Stop Date: 06/23/18 Status: Discontinued acetaminophen-hydrocodone 325 mg-5 mg oral tablet 1 tab, Route: PO, Drug Form: TAB, Dosing Weight 130.909, kg, Q4H, PRN Pain Score 4-6, Start date: 06/21/18 4:32:00 INTELLIGENCE OFFICER BASIC, 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, Stop date: 07/21/18 4: 31:00 INTELLIGENCE OFFICER BASIC Notes: (Same as: Hughes 325/5) Do not exceed 4gm/day of acetaminophen. Start Date: 06/21/18 Stop Date: 06/23/18 Status: Discontinued acetaminophen-hydrocodone 325 mg-5 mg oral tablet 2 tab, Route: PO, Drug Form: TAB, Dosing Weight 130.909, kg, Q4H, PRN Pain Score 7-10, Start date: 06/20/18 19:37:00 INTELLIGENCE OFFICER BASIC, 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, Stop date: 07/20/18 19:36:00 INTELLIGENCE OFFICER BASIC Notes: (Same as: Hughes 325/5) Do not exceed 4gm/day of acetaminophen. Start Date: 06/20/18 Stop Date: 06/21/18 Status: Discontinued acetaminophen-hydrocodone 325 mg-5 mg oral tablet 1 tab, Route: PO, Drug Form: TAB, Dosing Weight 130.909, kg, Q4H, PRN Pain Score 4-6, Start date: 06/20/18 19:37:00 INTELLIGENCE OFFICER BASIC, 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, Stop date: 07/20/18 1 9:36:00 INTELLIGENCE OFFICER BASIC Notes: (Same as: Hughes 325/5) Do not exceed 4gm/day of acetaminophen. Start Date: 06/20/18 Stop Date: 06/21/18 Status: Discontinued bisacodyl 10 mg, 1 supp, Route: KS, Drug form: SUPP, PRN, Dosing Weight 130.909, kg, PRN O ther -See Comment, Start date: 06/21/18 4:32:00 INTELLIGENCE OFFICER BASIC, 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, Stop date : 07/21/18 4:31:00 INTELLIGENCE OFFICER BASIC Notes: (Same As: Dulcolax, Bisco-Lax) Start Date: 06/21/18 Stop Date: 06/23/18 Status: Discontinued bisacodyl 15 mg, 3 tab, Route: PO, Drug form: ECTAB, Daily, Dosing Weight 130.909, kg, PRN Other -See Comment, Start date: 06/21/18 4:32:00 INTELLIGENCE OFFICER BASIC, 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, Stop da te: 07/21/18 4:31:00 INTELLIGENCE OFFICER BASIC Notes: (Same As: Dulcolax, Correctol) (Do Not Crush) "Do Not Crush" Start Date: 06/21/18 Stop Date: 06/23/18 Status: Discontinued Bupivacaine 0.167% + fentaNYL 4 mcg/ml Epidural CADD 200 mL Route: EPIDURAL, Continuous Rate: 10, ml/hr, Infusion site: Lumbar, TUBE FORMER OPERATOR dose 5 m L, TUBE FORMER OPERATOR dose lockout: 15 minutes, 1 Hour limit: 30 mL, Clinician Bolus: 5 mL, 200 , mL, Start date: 06/21/18 2:06:00 INTELLIGENCE OFFICER BASIC, Duration: 30, day, Drug Form: INJ, Total volume: 20... Start Date: 06/21/18 Stop Date: 06/21/18 Status: Discontinued bupivacaine-epinephrine 0.25%-1:200,000 preservative-free injectable solution Route: EPIDURAL, Drug Form: SOLN, Dosing Weight 130.909, kg, ONCE, Start date: 1 08/21/17 2:06:00 INTELLIGENCE OFFICER BASIC, Stop date: 06/21/18 2:06:00 INTELLIGENCE OFFICER BASIC Notes: (bupivacaine-epi 0.25%-1:200,000 30 mL VL PF) Not for use in continuous infusion. (Same As: Marcaine MPF w/Epi PF, Sensorcaine MPF w/Epi PF) Start Date: 06/21/18 Stop Date: 06/21/18 Status: Discontinued butorphanol 2 mg, 2 mL, Route: IVP, Drug form: INJ, Q2H, Dosing Weight 130.909, kg, PRN Pain Score 7-10, Start date: 06/20/18 19:37:00 INTELLIGENCE OFFICER BASIC, 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, Stop date: 07/26 19:36:00 INTELLIGENCE OFFICER BASIC Notes: (Same As: Stadol) Start Date: 06/20/18 Stop Date: 06/21/18 Status: Discontinued butorphanol 1 mg, 1 mL, Route: IVP, Drug form: INJ, Q2H, Dosing Weight 130.909, kg, PRN Pain Score 4-6, Start date: 06/20/18 19:37:00 INTELLIGENCE OFFICER BASIC, 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, Stop date: 07/09 09/26 19:36:00 INTELLIGENCE OFFICER BASIC Notes: (Same As: Stadol) Start Date: 06/20/18 Stop Date: 06/21/18 Status: Discontinued carboprost 250 microgram, 1 mL, Route: IM, Drug form: INJ, ONCALL, Dosing Weight 130.909, k g, Start date: 06/20/18 20:00:00 INTELLIGENCE OFFICER BASIC, 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, Stop date: 07/20/18 19:5 9:00 INTELLIGENCE OFFICER BASIC Notes: (Same As: Hemabate) Start Date: 06/20/18 Stop Date: 06/21/18 Status: Discontinued citric acid-sodium citrate 30 mL, Route: PO, Drug Form: SOLN, Dosing Weight 130.909, kg, ONCALL, Start date : 06/20/18 20:00:00 INTELLIGENCE OFFICER BASIC, 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, Stop date: 07/20/18 19:59:00 INTELLIGENCE OFFICER BASIC Notes: (Same As: Bicitra, Cytra-2) Sodium citrate-citric acid (500-334 mg/5 mL): 1 mL contains sodium 1 mEq/mL and bicarbonate 1 mEq/mL Start Date: 06/20/18 Stop Date: 06/21/18 Status: Discontinued Depo-Provera 150 mg, 1 mL, Route: IM, Drug form: INJ, ONCE, Dosing Weight 130.909, kg, Priori ty: NOW, Start date: 06/22/18 10:47:00 INTELLIGENCE OFFICER BASIC, Stop date: 06/22/18 10:47:00 INTELLIGENCE OFFICER BASIC Notes: (Same as: Depo-Provera)This is NOT Depo-SubQ Provera 104For IM use only MEDICATION WASTE Product Size: 150 mgProduct Wasted: ___ mg Start Date: 06/22/18 Stop Date: 06/22/18 Status: Completed Dermoplast 20% topical spray 1 spray, Route: TOP, PRN, Drug form: SPRY, PRN Irritation, Start date: 06/21/18 4:32:00 INTELLIGENCE OFFICER BASIC, 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, Stop date: 07/21/18 4:31:00 INTELLIGENCE OFFICER BASIC Notes: (Same As: Dermoplast)WASTE: Aerosol - Return to Pharmacy FOR EXTERNAL US E ONLY Start Date: 06/21/18 Stop Date: 06/23/18 Status: Discontinued Dextrose 5% in Lactated Ringers IV 1,000 mL 1,000 mL, Rate: 125 ml/hr, Infuse over: 8 hr, Route: IV, Dosing Weight 130.909 k g, Total Volume: 1,000, Start date: 06/20/18 19:37:00 INTELLIGENCE OFFICER BASIC, 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, Sto p date: 07/20/18 19:36:00 INTELLIGENCE OFFICER BASIC, 2.48, m2 Start Date: 06/20/18 Stop Date: 06/21/18 Status: Discontinued docusate 100 mg, 1 cap, Route: PO, Drug form: CAP, BID, Dosing Weight 130.909, kg, PRN Co nstipation, Start date: 06/21/18 4:32:00 INTELLIGENCE OFFICER BASIC, 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, Stop date: 07/21 4:31:00 INTELLIGENCE OFFICER BASIC Notes: (Same as: Colace) (Do Not Crush) Start Date: 06/21/18 Stop Date: 06/23/18 Status: Discontinued famotidine 20 mg, 2 mL, Route: IVP, Drug form: INJ, ONCALL, Dosing Weight 130.909, kg, Star t date: 06/20/18 20:00:00 INTELLIGENCE OFFICER BASIC, 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, Stop date: 07/20/18 19:59:00 CS T Notes: (Same as: Pepcid)Can be dilute in 5-10cc NS IVP: Slow IV push over at le ast 2 minutes. Start Date: 06/20/18 Stop Date: 06/21/18 Status: Discontinued ibuprofen 600 mg, 1 tab, Route: PO, Drug form: TAB, Q6Hnow, Dosing Weight 130.909, kg, Sta rt date: 06/21/18 5:00:00 INTELLIGENCE OFFICER BASIC, 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, Stop date: 07/21/18 0:00:00 INTELLIGENCE OFFICER BASIC Notes: (Same as: Motrin)"Do Not Crush" Take with food. Start Date: 06/21/18 Stop Date: 06/22/18 Status: Discontinued ibuprofen 600 mg, 1 tab, Route: PO, Drug form: TAB, Q6H, Dosing Weight 130.909, kg, PRN Ot her -See Comment, Start date: 06/20/18 19:37:00 INTELLIGENCE OFFICER BASIC, 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, Stop date : 07/20/18 19:36:00 INTELLIGENCE OFFICER BASIC Notes: (Same as: Motrin)"Do Not Crush" Take with food. Start Date: 06/20/18 Stop Date: 06/21/18 Status: Discontinued ibuprofen 600 mg oral tablet 600 mg = 1 tab, PO, Q6H, PRN Pain, take with food, # 30 tab, 1 Refill(s) Start Date: 06/23/18 Stop Date: 07/01/18 Status: Completed influenza virus vaccine, inactivated 0.5 mL, Route: IM, Drug Form: SUSP, ONCALL, Start date: 06/21/18 6:44:30 INTELLIGENCE OFFICER BASIC, St op date: 07/21/18 6:39:30 INTELLIGENCE OFFICER BASIC Notes: (Same as: Fluzone Quadrivalent, Fluarix Quadrivalent)For 3 years of age a nd older (0.5 mL IM)Shake well before use Start Date: 06/21/18 Stop Date: 06/23/18 Status: Canceled Lactated Ringers (Bolus) IV 1,000 mL, 1,000 ml/hr, Infuse Over: 1 hr, Route: IV, 1,000, Drug form: INJ, ONCE , Dosing Weight 130.909 kg, Start date: 06/20/18 19:37:00 INTELLIGENCE OFFICER BASIC, Stop date: 19:37:00 INTELLIGENCE OFFICER BASIC, Bolus for regional anesthesia per unit routine Start Date: 06/20/18 Stop Date: 06/20/18 Status: Completed Lactated Ringers IV 1,000 mL 1,000 mL, Rate: 100 ml/hr, Infuse over: 10 hr, Route: IV, Dosing Weight 130.909 kg, Total Volume: 1,000, Start date: 06/21/18 4:32:00 INTELLIGENCE OFFICER BASIC, 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, Sto p date: 07/21/18 4:31:00 INTELLIGENCE OFFICER BASIC, 2.48, m2 Start Date: 06/21/18 Stop Date: 06/23/18 Status: Discontinued Lactated Ringers IV 1,000 mL 1,000 mL, Rate: 125 ml/hr, Infuse over: 8 hr, Route: IV, Dosing Weight 130.909 k g, Total Volume: 1,000, Start date: 06/20/18 19:37:00 INTELLIGENCE OFFICER BASIC, 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, Sto p date: 07/20/18 19:36:00 INTELLIGENCE OFFICER BASIC, 2.48, m2 Start Date: 06/20/18 Stop Date: 06/21/18 Status: Discontinued lanolin topical 1 appl, Route: TOP, PRN, Drug form: OINT, PRN Other -See Comment, Start date: 4:32:00 INTELLIGENCE OFFICER BASIC, 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, Stop date: 07/21/18 4:31:00 INTELLIGENCE OFFICER BASIC Notes: (Same as:Lanolin) Start Date: 06/21/18 Stop Date: 06/23/18 Status: Discontinued lidocaine 1% 20 mL, Route: PERCUT, Drug Form: INJ, Dosing Weight 130.909, kg, PRN, PRN Other -See Comment, Start date: 06/20/18 19:37:00 INTELLIGENCE OFFICER BASIC, Duration: 1 doses or times, Sto p date: Limited # of times Notes: Preservative free. (Same as: Xylocaine MPF) Start Date: 06/20/18 Stop Date: 06/21/18 Status: Discontinued lidocaine 1% injectable solution 0.25 mL, Route: INTRADERM, Drug Form: INJ, Dosing Weight 130.909, kg, PRN, PRN O ther -See Comment, Start date: 06/20/18 19:37:00 INTELLIGENCE OFFICER BASIC, 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, Stop chuyita e: 07/20/18 19:36:00 INTELLIGENCE OFFICER BASIC Notes: Preservative free. (Same as: Xylocaine MPF) Start Date: 06/20/18 Stop Date: 06/21/18 Status: Discontinued lidocaine 2% MPF 5 mL, Route: EPIDURAL, Drug Form: SOLN, Dosing Weight 130.909, kg, ONCE, Start d ate: 06/21/18 2:06:00 INTELLIGENCE OFFICER BASIC, Stop date: 06/21/18 2:06:00 INTELLIGENCE OFFICER BASIC Notes: Preservative free. (Same as: Xylocaine-MPF) Start Date: 06/21/18 Stop Date: 06/21/18 Status: Discontinued M-M-R II 0.5 mL, Route: SUB-Q, Drug Form: PDR/INJ, Dosing Weight 130.909, kg, ONCALL, Giv e only if patient rubella non-immune, Start date: 06/21/18 5:00:00 INTELLIGENCE OFFICER BASIC, Duration : 1 doses or times Notes: (Same as: M-M-R II) (czrgmow-rfjej-arajlvp virus vaccine 0.5 ml INJ VL)WA ROMINA: F/P - Red; E -Red GIVE PRIOR TO DISCHARGE Start Date: 06/21/18 Stop Date: 06/23/18 Status: Discontinued measles/mumps/rubella virus vaccine SUB-Q injection 0.5 mL, Route: SUB-Q, Drug Form: PDR/INJ, Dosing Weight 130.909, kg, ONCE, Routi ne, Start date: 06/21/18 16:57:00 INTELLIGENCE OFFICER BASIC, Stop date: 06/21/18 16:57:00 INTELLIGENCE OFFICER BASIC Notes: (Same as: M-M-R II) (rrlhata-timna-ntzzjfs virus vaccine 0.5 ml INJ VL)MT ROMINA: F/P - Red; E -Red GIVE PRIOR TO DISCHARGE Start Date: 06/21/18 Stop Date: 06/27/18 Status: Discontinued methylergonovine 0.2 mg, 1 mL, Route: IM, Drug form: INJ, PRN, Dosing Weight 130.909, kg, PRN Oth er -See Comment, Start date: 06/21/18 4:32:00 INTELLIGENCE OFFICER BASIC, 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, Stop date: 07/21/18 4:31:00 INTELLIGENCE OFFICER BASIC Notes: (Same as:Methergine) Start Date: 06/21/18 Stop Date: 06/23/18 Status: Discontinued methylergonovine 0.2 mg, 1 mL, Route: IM, Drug form: INJ, ONCALL, Dosing Weight 130.909, kg, Star t date: 06/20/18 20:00:00 INTELLIGENCE OFFICER BASIC, 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, Stop date: 07/20/18 19:59:00 CS T Notes: (Same as:Methergine) Start Date: 06/20/18 Stop Date: 06/21/18 Status: Discontinued misoprostol 1,000 microgram, 5 tab, Route: KS, Drug form: TAB, ONCALL, Dosing Weight 130.909 , kg, Start date: 06/20/18 20:00:00 INTELLIGENCE OFFICER BASIC, Duration: 1 doses or times Notes: (Same as:Cytotec) Take with food Start Date: 06/20/18 Stop Date: 06/21/18 Status: Discontinued Motrin 600 mg, 1 tab, Route: PO, Drug form: TAB, Q6Hnow, Dosing Weight 130.909, kg, Sta rt date: 06/22/18 18:00:00 INTELLIGENCE OFFICER BASIC, 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, Stop date: 07/22/18 12:00:[address] Notes: (Same as: Motrin)"Do Not Crush" Take with food. Start Date: 06/22/18 Stop Date: 06/23/18 Status: Discontinued ondansetron 4 mg, 2 mL, Route: IVP, Drug form: INJ, Q8H, Dosing Weight 130.909, kg, PRN Naus ea & Vomiting, Start date: 06/21/18 4:32:00 INTELLIGENCE OFFICER BASIC, 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, Stop date: 07/21/18 4:31:00 INTELLIGENCE OFFICER BASIC Notes: (Same as: Zofran) MEDICATION WASTE Product Size: 4 mgProduct [place]: ___ mg Start Date: 06/21/18 Stop Date: 06/23/18 Status: Discontinued ondansetron 4 mg, 2 mL, Route: IVP, Drug form: INJ, Q8H, Dosing Weight 130.909, kg, PRN Naus ea & Vomiting, Start date: 06/20/18 19:37:00 INTELLIGENCE OFFICER BASIC, 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, Stop date: 07/20/18 19:36:00 INTELLIGENCE OFFICER BASIC Notes: (Same as: Zofran) MEDICATION WASTE Product Size: 4 mgProduct Was [place]: ___ mg Start Date: 06/20/18 Stop Date: 06/21/18 Status: Discontinued oxytocin 30 units in NS 500ml (Titrate) IV 30 unit 30 unit, 500 mL, Rate: Titrate, Dosing Weight 130.909, kg, Route: IV, Total Volu me: 500 mL, Start date: 06/20/18 19:39:00 INTELLIGENCE OFFICER BASIC, Duration: 2 day, Stop date: 06/22 19:38:00 INTELLIGENCE OFFICER BASIC, Replace Every: 24 hr Start Date: 06/20/18 Stop Date: 06/21/18 Status: Discontinued oxytocin 30 units in NS 500ml (Titrate) IV 30 unit 30 unit, 500 mL, Rate: 42 ml/hr, Infuse over: 11.9 hr, Dosing Weight 130.909, kg , Route: IV, Total Volume: 500 mL, Start date: 06/21/18 4:32:00 INTELLIGENCE OFFICER BASIC, Duration: 2 day, Stop date: 06/23/18 4:31:00 INTELLIGENCE OFFICER BASIC, Replace Every: 11.9 hr Start Date: 06/21/18 Stop Date: 06/23/18 Status: Completed oxytocin 30 units in NS 500ml (Titrate) IV 30 unit 30 unit, 500 mL, Rate: 42 ml/hr, Infuse over: 11.9 hr, Dosing Weight 130.909, kg , Route: IV, Total Volume: 500 mL, Start date: 06/20/18 19:37:00 INTELLIGENCE OFFICER BASIC, Duration: 2 day, Stop date: 06/22/18 19:36:00 INTELLIGENCE OFFICER BASIC, Replace Every: 11.9 hr Start Date: 06/20/18 Stop Date: 06/21/18 Status: Discontinued penicillin G potassium 2,500,000 unit, 50 mL, Route: IVPB, Drug form: INJ, ABXQ4H, Dosing Weight 130.90 9, kg, Start date: 06/21/18 0:00:00 INTELLIGENCE OFFICER BASIC, 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, Stop date: 07/20/18 2 0:00:00 INTELLIGENCE OFFICER BASIC Start Date: 06/21/18 Stop Date: 06/21/18 Status: Discontinued penicillin G potassium 5,000,000 units injection + Sodium Chloride 0.9% IV 100 m L 5,000,000 unit, Route: IVPB, ONCALL, Dosing Weight 130.909, kg, Start date: 06/09 09/26 20:00:00 INTELLIGENCE OFFICER BASIC, 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, Stop date: 07/20/18 19:59:00 INTELLIGENCE OFFICER BASIC Notes: (Same as: Pfizerpen) MEDICATION WASTE Product Size: 5,000,000 un itProduct Wasted: ___ unit Start Date: 06/20/18 Stop Date: 06/20/18 Status: Completed Multivitamins oral tablet 1 tab, Route: PO, Drug Form: TAB, Dosing Weight 130.909, kg, Daily, Start date: 06/21/18 9:00:00 INTELLIGENCE OFFICER BASIC, 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, Stop date: 07/20/18 9:00:00 INTELLIGENCE OFFICER BASIC Start Date: 06/21/18 Stop Date: 06/23/18 Status: Discontinued promethazine 12.5 mg, 1 tab, Route: PO, Drug form: TAB, Q4H, Dosing Weight 130.909, kg, PRN N ausea & Vomiting, Priority: STAT, Start date: 06/21/18 1:23:00 INTELLIGENCE OFFICER BASIC, 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, Stop date: 07/21/18 1:22:00 INTELLIGENCE OFFICER BASIC Notes: (Same as: Phenergan) Start Date: 06/21/18 Stop Date: 06/23/18 Status: Discontinued terbutaline 0.25 mg, 0.25 mL, Route: SUB-Q, Drug form: INJ, PRN, Dosing Weight 130.909, kg, PRN Other -See Comment, Start date: 06/20/18 19:37:00 INTELLIGENCE OFFICER BASIC, Duration: 1 doses or times, Stop date: Limited # of times Notes: DO NOT USE IN RN UNIT MANAGER AREA(Same As: Jorge Luis) Start Date: 06/20/18 Stop Date: 06/21/18 Status: Discontinued Zofran ODT 4 mg, 1 tab, Route: PO, Drug form: TABDIS, Q8H, Dosing Weight 130.909, kg, PRN N ausea, Start date: 06/20/18 20:51:00 INTELLIGENCE OFFICER BASIC, 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, Stop date: 07/20/18 20:50:00 INTELLIGENCE OFFICER BASIC Notes: (Same as: Zofran ODT) Start Date: 06/20/18 Stop Date: 06/23/18 Status: Discontinued zolpidem 5 mg, 1 tab, Route: PO, Drug form: TAB, Bedtime, Dosing Weight 130.909, kg, PRN Sleep, Start date: 06/21/18 4:32:00 INTELLIGENCE OFFICER BASIC, 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, Stop date: 07/21/18 4 :31:00 INTELLIGENCE OFFICER BASIC Notes: (Same As: Andrew) Start Date: 06/21/18 Stop Date: 06/23/18 Status: Discontinued Results Most recent to 1 2 oldest [Reference Range]: Rhig Reqd See Note 1 (06/20/18 8:09 PM) Neutrophils # 11.4 K/CMM [1.5-8.1 K/CMM] *HI* (06/20/18 8:09 PM) Lymphocytes # 1.8 K/CMM [1.0-5.5 K/CMM] (06/20/18 8:09 PM) Monocytes # [0.0-0.8 0.7 K/CMM K/CMM] (06/20/18 8:09 PM) Basophils # [0.0-0.2 0.1 K/CMM K/CMM] (06/20/18 8:09 PM) eGFR 122 mL/min/1.73m2 2 122 mL/min/1.73m2 3 *NA* *NA* (06/22/18 10:45 AM) (06/20/18 8:09 PM) ABO/Rh O POS *Unknown* (06/20/18 8:09 PM) UDS Note See Note (06/20/18 8:09 PM) A/G Ratio [0.7-1.6] 0.6 0.6 *LOW* *LOW* (06/22/18 10:45 AM) (06/20/18 8:09 PM) Antibody Scrn Negative (06/20/18 8:09 PM) Albumin Lvl [3.5-5.0 2.0 g/dL 2.9 g/dL g/dL] *LOW* *LOW* (06/22/18 10:45 AM) (06/20/18 8:09 PM) Alk Phos [39-136 201 unit/L 316 unit/L unit/L] *HI* *HI* (06/22/18 10:45 AM) (06/20/18 8:09 PM) ALT [0-65 unit/L] 19 unit/L 26 unit/L (06/22/18 10:45 AM) (06/20/18 8:09 PM) U Amph Scr Negative [Negative] *NA* (06/20/18 8:09 PM) AGAP [10.0-20.0 15.0 mEq/L 16.6 mEq/L mEq/L] (06/22/18 10:45 AM) (06/20/18 8:09 PM) AST [0-37 unit/L] 25 unit/L 53 unit/L (06/22/18 10:45 AM) *HI* (06/20/18 8:09 PM) B/C Ratio [6-25] 13 10 (06/22/18 10:45 AM) (06/20/18 8:09 PM) U Evelia Scr Negative [Negative] *NA* (06/20/18 8:09 PM) Basophils [0.0-1.0 0.4 % %] (06/20/18 8:09 PM) U Benzodiaz Scr Negative [Negative] *NA* (06/20/18 8:09 PM) BUN [7-22 mg/dL] 8 mg/dL 6 mg/dL (06/22/18 10:45 AM) *LOW* (06/20/18 8:09 PM) Calcium Lvl 8.0 mg/dL 9.1 mg/dL [8.5-10.5 mg/dL] *LOW* (06/20/18 8:09 PM) (06/22/18 10:45 AM) Chloride Lvl [95-109 107 mEq/L 105 mEq/L mEq/L] (06/22/18 10:45 AM) (06/20/18 8:09 PM) CO2 [24-32 mEq/L] 24 mEq/L 23 mEq/L (06/22/18 10:45 AM) *LOW* (06/20/18 8:09 PM) U Cocaine Scr Negative [Negative] *NA* (06/20/18 8: PM) Creatinine Lvl 0.63 mg/dL 0.62 mg/dL [0.50-1.40 mg/dL] (06/22/18 10:45 AM) (06/20/18 8:09 PM) Eosinophils [0.0-4.0 0.1 % %] (06/20/18 8:09 PM) Globulin [2.7-4.2 3.6 g/dL 4.8 g/dL g/dL] (06/22/18 10:45 AM) *HI* (06/20/18 8: PM) Glucose Lvl [70-99 103 mg/dL 79 mg/dL mg/dL] *HI* (06/20/18 8:09 PM) (06/22/18 10:45 AM) Hep Bs Ag [Negative] Negative *NA* (06/20/18 8: PM) Hct [36.0-48.0 %] 32.8 % 43.5 % *LOW* (06/20/18 8:09 PM) (06/22/18 4:24 AM) Hgb [12.0-16.0 g/dL] 11.2 g/dL 14.8 g/dL *LOW* (06/20/18 8:09 PM) (06/22/18 4:24 AM) Potassium Lvl 4.0 mEq/L 4.6 mEq/L [3.5-5.1 mEq/L] (06/22/18 10:45 AM) (06/20/18 8:09 PM) Lymphocytes 13.1 % [20.0-40.0 %] *LOW* (06/20/18 8:09 PM) MCH [27.0-31.0 pg] 29.9 pg (06/20/18 8:09 PM) MCHC [32.0-36.0 34.1 g/dL g/dL] (06/20/18 8:09 PM) MCV [80.0-98.0 fL] 87.8 fL (06/20/18 8:09 PM) Monocytes [2.0-12.0 5.2 % %] (06/20/18 8:09 PM) MPV [7.4-10.4 fL] 8.6 fL (06/20/18 8: PM) Sodium Lvl [135-145 142 mEq/L 140 mEq/L mEq/L] (06/22/18 10:45 AM) (06/20/18 8:09 PM) U Opiate Scr Negative [Negative] *NA* (06/20/18 8: PM) U Phencyclidine Scr Negative [Negative] *NA* (06/20/18 8:09 PM) Platelet [133-450 292 K/CMM K/CMM] (06/20/18 8:09 PM) Segs [45.0-75.0 %] 81.2 % *HI* (06/20/18 8:09 PM) Total Protein 5.6 g/dL 7.7 g/dL [6.4-8.4 g/dL] *LOW* (06/20/18 8:09 PM) (06/22/18 10:45 AM) RBC [4.20-5.40 4.96 M/CMM M/CMM] (06/20/18 8:09 PM) RDW [11.5-14.5 %] 14.2 % (06/20/18 8:09 PM) Rubella IgG [>=10.0 0.3 IU/mL IU/mL] *LOW* (06/20/18 8:09 PM) Bili Total [0.2-1.3 <0.1 mg/dL 2.1 mg/dL mg/dL] *LOW* *HI* (11/14/18 10:45 AM) (06/20/18 8:09 PM) U Cannab Scr Negative [Negative] *NA* (06/20/18 8:09 PM) WBC [3.7-10.4 K/CMM] 14.1 K/CMM *HI* (06/20/18 8:09 PM) HIV. [Negative] Negative *NA* (06/20/18 8:09 PM) Treponemal Ab Non-Reactive [Non-Reactive] *NA* (06/20/18 8:09 PM) 1Result Comment: 06/20/2018 21:23 [id number] This patient is not a candidate for Rh(O)D immune globulin. 2Result Comment: The eGFR is calculated using the [...] from the National Kid[employer] Education Program ( NKDEP) which additionally recommends that when the eGFR is used in patients with extremes of body mass index for purposes of drug dosing, the eGFR should be mul tiplied by the estimated BMI. 3Result Comment: The eGFR is calculated using the [...] from the National Kid[employer] Education Program ( NKDEP) which additionally recommends that when the eGFR is used in patients with extremes of body mass index for purposes of drug dosing, the eGFR should be mul tiplied by the estimated BMI. Immunizations Given and Recorded Vaccine Date Status [...] No entered on: 12/19/18 Assessment and Plan Extracted from: Title: Clinical Document Author: Esau Venegas Date: 06/23/18 Discharge Summary Ad:06/20 Dc:06/23 Cndt:stable [...] Dx: vag del. Esau Venegas MD, PhD [employer]ender Attending Extracted from: Title: Clinical Document Author: Esau Venegas Date: 06/23/18 Some c/o left foot having difficulty lif ting with her gait, but no leg pain, [...] for pain management. Esau Venegas MD, PhD [employer]ender Attending Extracted from: Title: History & Physical Author: Danielle Esqueda MD Date: 06/20/18 History of Present Illness DARCI: 06/23/2018 GA: 39w4d CC: Contractions HPI: Ms. Brunner is a 28 yo at 39w4d by [...] time, and situation. Psychiatric: Cooperative, appropriate mood & affect. Medical Decision Making Differential Diagnosis: , labor. Heart Rate Electronic Monitor baseline 140, Variability Moderate, Accelerations Present, Decelerations Absent, TOCO: q 2-3 minutes. Impression and Plan Ms. Brunner is a 28 yo at 39w4d by reported 1T usg in active labor. FHTs cat 1. GBS pos. 1. Admit to L&D with routine and no doc labs for active managment of labor with pitocin. -Patient was to be induced at 38 weeks b y [facility], but is unsusre of indication. Will actively manage. 2. GBS positive- PCN for GBS PPX. 3. N/V- will obtain CMP. Zofran PRN. 4. LSIL pap- colposcopy PP, per [facility] gu idelines. Follow up with [facility] outpatient. 5. Dispo- To L&D for pitocin and PCN.
--- OUTSIDE RECORDS SUMMARY | 2019-12-24 13:49 | XMS REPORT | Summary of Care ---
Author Author [facility] Organization [facility] Address Unknown Phone Unavailable Encounter HQ Encntr_alisaima(FIN) [id number] Date(s): 08/07/17 - 08/07/17 [facility] [address] [place] [address]- [facility] [phone] Discharge Disposition: Not Treated Attending Physician: Esau Landon DO Vital Signs No data available for this section Problem List No data available for this section Allergies, Adverse Reactions, Alerts Substance Reaction Severity Status NKDA Active Medications No data available for this section Results No data available for this section Immunizations No data available for this section Procedures No data available for this section Social History Social History Type Response Smoking Status Never smoker; Exposure to T obacco Smoke None; Cigarette Smoking Last 365 Days No; Reg Smoking Cessation Counseli ng No Assessment and Plan No data available for this section
--- OUTSIDE RECORDS SUMMARY | 2019-12-24 13:49 | XMS REPORT ---
Author Author [facility] t Organization [facility] Address [address] [facility] [address] [place] [address] Phone Unavailable Care Team Providers Care Senior Application Programmer Name Role Phone NONSTAFF PCP Unavailable Shayne Richards Attphys FRANCISCA HDZ Attphys Unavailable Enoch Wetzel Attphys Beto LAMAS, Torito Attphys Malcolm Flores Attphys Shefali Turciosh Attphys Tatiana Bermudez Attphys Klaus LAMAS, Seamus Garrido Attphys Aimee Madison Attphys Chidi Esqueda Attphys Torri Vernon Attphys Thomas Arthuredgar Edin Attphys Arik Swanson Attphys Diya Landon Attphys TY Gold ASHER Attphys Unavailable NwegChidi germain Admphys Gold TY Admphys Unavailable Payers Payer Name Policy Type Policy Number Effective Date Expiration Date Zain vitale [facility] [id number] 2018 00:00:00 202 00:00:00 [facility] [id number] [facility] [id number] xxxxxxxxx 2018 00:00:00 Manas Nuno Problems Condition Name Condition Details Condition Category Status Onset Date Resolution Date Last Treatment Date Treating Clinician Comments Source Bipolar 2 disorder Bipolar 2 disorder Disease Active 2019-05-22 00:00:0 0 Manas Nuno Noncompliance Noncompliance Disease Active 2018-06-08 00:00:00 Manas Nuno Allergies, Adverse Reactions, Alerts Allergy Name Allergy Type Status Severity Reaction(s) Onset Date Inacti ve Date Treating Clinician Comments Source No Known Allergies DA Active U 2019-11-07 00:00:00 [facility] Social History Social Habit Start Date Stop Date Quantity Comments Source Sex Assigned At Anya maciel Rastafarian Alcohol intake 2019-05-22 00:00:00 2019-05-22 00:00:00 Current drinker of alcohol (finding) Manas Nuno Alcohol Comment 2019-01-08 00:00:00 2019-01-08 00:00:00 occasional Manas Nuno Smoking Status Start Date Stop Date Source Never smoker Manas Jarquin t Medications Ordered Medication Name Filled Medication Name Start Date Stop Da te Current Medication? Ordering Clinician Indication Dosage Frequency Signature (SIG) Comments Components Source Acetaminophen With Codeine (Tylenol With Codeine #3 Ta blet) 1 Each Tablet Acetaminophen With Codeine (Tylenol With Codeine #3 Tablet) 1 Each Tablet 2019-10-31 00:00:00 Yes Ama Ríos Md Every 6 Hours as needed for Pain [facility] Penicillin V Potassium (Pencillin V Potassium*) 250 Mg Tab Penicillin V Potassium (Pencillin V Potassium*) 250 Mg Tab 2019-10-31 00:00:00 Yes Ama Ríos Md 500 Every 8 Hours for Infection [facility] Tramadol Hcl (Ultram) 50 Mg Tablet, 50 Mg Oral Tramado l Hcl (Ultram) 50 Mg Tablet, 50 Mg Oral 2019-10-31 00:00:00 2019-10-31 00:00:00 No Ama schneider Md 50 Every 6 Hours as needed for Pain [facility] Amoxicillin/Potassium Clav (Augmentin 875-125 Tablet) 1 Each Tablet Amoxicillin/Potassium Clav (Augmentin 875-125 Tablet) 1 Each Tablet 2019-10-19 00:00:00 Yes Israel Byrd Md 875 Twice A Day [facility] Benzonatate (Tessalon Perle) 100 Mg Capsule Benzonatat e (Tessalon Perle) 100 Mg Capsule 2019-10-19 00:00:00 Yes Israel Byrd Md 100 Three Times A Day for Cough [facility] Ondansetron Hcl (Zofran*) 4 Mg Tablet Ondansetron Hcl (Zofra n*) 4 Mg Tablet 2019-10-19 00:00:00 Yes Israel Byrd Md 4 Every 6 Hours as needed for Nausea [facility] Oseltamivir Phosphate (Tamiflu) 75 Mg Cap Oseltamivir Phosphate (Tamiflu) 75 Mg Cap 2019-10-19 00:00:00 Yes Israel Byrd Md 75 Twice A Day [facility] clindamycin (CLEOCIN) 150 MG capsule 2019-05-22 00:00: 00 2019-06-02 04:59:00 No 150mg Q6H Take 1 capsule (150 mg total) by mouth every 6 (six) hours for 10 days. Manas Nuno ibuprofen (ADVIL) 600 MG tablet 2019-05-22 00:00:00 04:59:00 No 600mg Q6H Take 1 tablet (600 m g total) by mouth every 6 (six) hours as needed for mild pain or moderate pain for up to 5 days. Manas Nuno traMADol (ULTRAM) 50 mg tablet 2019-05-22 00:00:00 2019-05-09 8 04:59:00 No [id number] 50mg Q6H Take 1 tablet (50 mg total) by mouth every 6 (six) hours as needed for moderate pain for up to 3 days .Acute Pain. Manas Nuno acetaminophen-codeine (TYLENOL WITH CODEINE #3) 300-30 mg pe r tablet 2019-05-19 00:00:00 2019-05-30 04:59:00 No 1{tbl} Take 1-2 tablets by mouth. Manas Nuno amoxicillin-pot clavulanate (AUGMENTIN) 875-125 mg per table t 2019-05-19 00:00:00 2019-05-22 00:00:00 No 1{tbl} Take 1 tablet by mouth. Manas Nuno ALPRAZolam (XANAX) 2 MG tablet 2019-01-08 06:05:10 Yes 2mg Q.5D Take 2 mg by mouth 2 (two) times a day. Manas Nuno QUEtiapine (SEROquel) 50 MG tablet 2019-01-08 06:05:10 Yes 50mg Q.5D Take 50 mg by mouth 2 (two) times a day. Manas Nuno Vital Signs Vital Name Observation Time Observation Value Comments Source Systolic blood pressure 2019-05-22 12:18:00 150 mm[Hg] Manas Nuno Diastolic blood pressure 2019-05-22 12:18:00 70 mm[Hg] Manas Nuno Heart rate 2019-05-22 12:18:00 77 /min Manas Nuno Respiratory rate 2019-05-22 12:18:00 16 /min Ezra Nuno Oxygen saturation in Arterial blood by Pulse oximetry 2018-08 12:18:00 99 /min Manas Nuno Body temperature 2019-05-22 11:17:06 36.89 Ivon Ezra Nuno Body height 2019-01-08 06:00:00 160 cm Manas Nuno Body weight 2019-01-08 06:00:00 127.007 kg Malagon Rastafarian BMI 2019-01-08 06:00:00 49.60 kg/m2 Malagon Rastafarian Procedures Procedure Date / Time Performed Performing Clinician Rony GUTIERREZ AA&/DIAZ HERNANDEZ NRV 2019-05-19 00:00:00 WILMAR RUIZ [facility] Encounters Start Date/Time End Date/Time [facility] ID Source 2018-06-20 19:37:00 Inpatient E [facility] [id number] [facility] 2019-10-31 12:42:00 2019-10-31 13:30:00 Departed Emergency Room [facility] [id number] [facility] 2019-10-19 10:55:00 2019-10-19 12:19:00 Departed Emergency Room [facility] [id number] [facility] 2019-10-06 15:10:00 2019-10-06 23:59:59 Outpatient Gold Richards [facility] [id number] [facility] 2019-07-05 13:47:09 2019-07-06 23:59:59 Outpatient [facility] [id number] [facility] 2019-05-26 09:20:00 2019-05-26 23:59:59 Outpatient [facility] [id number] [facility] 2019-05-22 07:40:25 2019-05-22 08:06:00 Outpatient Alessandro Wetzel [facility] [id number] [facility] 2019-05-22 07:40:00 2019-05-22 07:40:00 Emergency E [facility] [id number] 2019-05-19 07:09:00 2019-05-19 07:58:00 Departed Emergency Room [facility] [id number] [facility] 2019-01-23 14:00:00 2019-01-23 14:00:00 Outpatient Radhika Flores [facility] [id number] [facility] 2019-01-11 15:30:00 2019-01-11 23:59:59 Outpatient Karolina Lucas Rene Meehan [facility] [id number] [facility] 2019-01-08 03:18:56 2019-01-08 06:08:00 Outpatient Matt Castillo [facility] [id number] [facility] 2019-01-08 03:18:00 2019-01-08 03:18:00 Emergency [place] [id number] [facility] 2018-12-19 06:15:10 2018-12-19 09:35:00 Outpatient HerbcandelariaKaterin Aimee [facility] [id number] [facility] 2018-12-19 06:15:00 2018-12-19 06:15:00 Emergency [place] [id number] [facility] 2018-11-28 14:00:00 2018-11-28 23:59:59 Outpatient Karolina Lucas Rene Meehan [facility] [id number] [facility] 2018-07-19 14:41:00 2018-07-19 20:29:00 Outpatient HerbcandelariaKaterin Aimee [facility] [id number] [facility] 2018-07-19 14:41:00 2018-07-19 14:41:00 Emergency [place] [id number] [facility] 2018-06-20 18:53:00 2018-06-23 15:54:00 Outpatient Dharmesh Esqueda [facility] [id number] [facility] 2018-05-24 20:23:00 2018-05-24 22:51:00 Outpatient Bets Vernon [facility] [id number] [facility] 2018-05-24 20:23:00 2018-05-24 20:23:00 Emergency E [facility] [id number] [facility] 2017-11-22 05:52:00 2017-11-22 09:27:00 Outpatient Nicki Arthur or [place] [facility] [id number] [facility] 2017-08-08 21:15:00 2017-08-08 23:37:00 Outpatient Ion Lama [facility] [id number] [facility] 2017-08-07 12:46:00 2017-08-07 13:47:00 Outpatient Esau Landon [facility] [id number] [facility] spital Results Test Description Test Time Test Comments Results Result Comments Source WET PREP 2019-08-27 18:38:00 Test Item WBC WET PREP (BEAKER) (test code = 528) Few white blood cells seen CLUE CELLS (BEAKER) (test code = 526) No clue cells seen YEAST WET PREP (BEAKER) (test code = 530) No budding yeast seen TRICH WET PREP (BEAKER) (test code = 531) No Trichomonas seen BACT WET PREP (BEAKER) (test code = 532) Few bacteria seen URINALYSIS W/ REFLEX URINE [id number] 17:01:00* Test Item Value Reference Range Interpretation Comments COLOR (BEAKER) (test code = 470) Yellow CLARITY (BEAKER) (test code = 469) Clear SPECIFIC GRAVITY UA (BEAKER) (test code = 468) 1.025 1.001-1 .035 PH UA (BEAKER) (test code = 467) 5.5 5.0-8.0 PROTEIN UA (BEAKER) (test code = 464) Negative Negative GLUCOSE UA (BEAKER) (test code = 365) Negative Negative KETONES UA (BEAKER) (test code = 371) Negative Negative BILIRUBIN UA (BEAKER) (test code = 462) Negative Negative BLOOD UA (BEAKER) (test code = 461) Small Negative A NITRITE UA (BEAKER) (test code = 465) Negative Negative LEUKOCYTE ESTERASE UA (BEAKER) (test code = 466) Moderate Negat charlene A UROBILINOGEN UA (BEAKER) (test code = 463) 0.2 mg/dL 0.2-1.0 BACTERIA (BEAKER) (test code = 517) Few RBC UA-MANUAL (BEAKER) (test code = 1659) <5 /HPF WBC UA-MANUAL (BEAKER) (test code = 1661) 10-20 /HPF SQUAMOUS EPITHELIAL MANUAL (BEAKER) (test code = 1663) 5-10 /HPF SOURCE(BEAKER) (test code = 2795) SCREEN, [id number] 16:45:00* Test Item Value Reference Range Interpretation Comments TEST URINE (THAO) (test code = 583) Negative CT, MAXILLOFACIAL AREA, WO [id number] 11:07:00Reason for exam:->ASSAULT VICTIMReason for exam:->strangledPt got chokedFINAL REPORT CT, MAXILLOFACIAL AREA, WO CONTRAST CLINICAL [...] aligned.Dental structures: Multiple dental caries are present. Periap ical lucency noted at the root of a multiple mandibular molars. Orbits: Orbital roof, floor, medial and lateral portillo intact.Globes: Globes and extraocular musc les intact.Retrobulbar spaces: Unremarkable. Superficial soft tissues: Unremarka ble. Additional findings: None. IMPRESSION: No facial bone fracture Signed: JR Baker Robert MDReport Verified Date/Time: 01/07/2019 11:07:28 Readi Location: [address] Neuro Reading Room ALYSIS WITH [id number] 13:04:00 * Test Item Value Reference Range Interpretation Comments COLOR (test code = COLU) YELLOW YELLOW CLARITY (test code = CLA) CLOUDY CLEAR A GLUCOSE UR (test code = UA GLUCOSE) NEGATIVE NEGATIVE BILI UR (test code = BILE) NEGATIVE NEGATIVE KETONES UR (test code = TIEN) NEGATIVE NEGATIVE SP GRAVITY (test code = SPGR) 1.011 1.005-1.030 PH UR (test code = PH) 6.5 4.5-8.0 PROTEIN UR (test code = PU) NEGATIVE NEGATIVE UROBIL UR (test code = UROQ) 0.2 EU/dL 0.2-1.0 NITRITE UR (test code = NITRITE) NEGATIVE NEGATIVE BLOOD UR (test code = UA BLOOD) NEGATIVE NEGATIVE LEUK ES UR (test code = LEUK) 2+ NEGATIVE A WBC UR (test code = UWBC) 3 /HPF 0-5 RBC UR (test code = URBC) 0 /HPF 0-2 EPITH UR (test code = UEPC) FEW /LPF FEW BACTERIA UR (test code = UBACT) MODERATE /HPF NONE A CAST UR (test code = CAST) /LPF NONE CRYSTAL UR (test code = CRYU) / LPF NONE MUCUS UR (test code = MUC) / HPF NONE AMORPH UR (test code = JOSE) FEW / HPF NONE A TRICH UR (test code = UTRICH) /HPF NONE YEAST UR (test code = UY) /HPF NONE SPERM UR (test code = USPERM) /HPF NONE CT STONE PROTOCOL [id number] 13:03:45CT ABDOMEN AND PELVIS WITHOUT CONTRAST, RENAL STONE PROTOCOL:Location code: [id number] HISTORY: Left flank painCOMPARISON: NoneTECHNIQUE: Helical CT [...] cyst.3. Fatty infiltration of the liver.AMYLASE AND [id number] 12:56:00* Test Item Value Reference Range Interpretation Comments AMYLASE (test code = 10A) 50 U/L 28-100 LIPASE (test code = 60A) 123 IU/L 73-393 COMPREHENSIVE METABOLIC [id number] 12:56:00* Test Item Value Reference Range Interpretation Comments GLUCOSE (test code = 06D) 99 mg/dL 75-100 SODIUM (test code = 01A) 137 mmol/L 136-145 POTASSIUM (test code = 01B) 3.9 mmol/L 3.6-5.1 CHLORIDE (test code = 04A) 105 mmol/L 98-107 CO2 (test code = 02A) 27 mmol/L 22-32 ANION GAP (test code = ANG) 8.9 mmol/L BUN (test code = 05D) 8 mg/dL 7-18 CREATININE (test code = 03E) 0.8 mg/dL 0.4-1.1 BUN/CREA R (test code = BCR) 10 12-20 L CALCIUM (test code = 09D) 8.8 mg/dL 8.3-9.5 BILI TOTAL (test code = 11A) 0.3 mg/dL 0.2-1.0 PROTEIN (test code = 07D) 8.2 g/dL 6.4-8.2 ALBUMIN (test code = 08D) 3.4 g/dL 3.5-4.8 L GLOBULIN (test code = GLB) 4.8 g/dL 1.5-3.8 H ALB/GLOB (test code = AGRR) 0.7 1.0-2.6 L ALK PHOS (test code = 35A) 121 IU/L 42-121 AST (test code = 30A) 49 IU/L <=42 H ALT (test code = 31A) 69 IU/L <=78 SERUM [id number] 12:42:00* Test Item Value Reference Range Interpretation Comments PREG SRM (test code = PGS) NEGATIVE NEGATIVE CBC (INCLUDES AUTOMATED DIFFERENTIAL)2016-09-24 12:37:00* Test Item Value Reference Range Interpretation Comments WBC (test code = WBC) 13.7 10\S\3/uL 4.5-11.0 H RBC (test code = RBC) 5.12 10\S\6/uL 4.30-5.70 HGB (test code = HBG) 16.0 g/dL 12.0-15.5 H HCT (test code = HCT) 46.7 % 35.0-44.0 H MCV (test code = MCV) 91.2 fL 81.0-99.0 MCH (test code = MCH) 31.3 pg 27.0-31.0 H MCHC (test code = MCHC) 34.3 g/dL 32.0-36.0 RDW (test code = RDW) 12.6 % 11.5-14.5 PLT (test code = PLT) 286 10\S\3/uL 130-400 MPV (test code = MPV) 9.8 fL 9.4-12.4 NEUTROP # (test code = NE#) 9.5 10\S\3/uL 1.6-8.0 H LYMPH # (test code = LY#) 3.0 10\S\3/uL 1.1-3.5 MONOCYTE # (test code = MO#) 0.9 10\S\3/uL 0.0-1.1 EOSINOPH # (test code = EO#) 0.2 10\S\3/uL 0.0-0.7 BASOPHIL # (test code = BA#) 0.0 10\S\3/uL 0.0-0.3 IG # (test code = IG#) 0.08 10\S\3/uL 0.00-0.06 H NRBC # (test code = NRBC#) 0.00 10\S\3/uL 0.00-0.01 NEUTROPH % (test code = NE%) 69.7 % 35.0-73.0 LYMPH % (test code = LY%) 21.9 % 20.0-55.0 MONO % (test code = MO%) 6.3 % 2.5-10.0 EOSINOPH % (test code = EO%) 1.2 % 0.0-5.0 BASOPHIL % (test code = BA%) 0.3 % 0.0-2.0 IG % (test code = IG%) 0.6 % 0.0-0.8 NRBC% (test code = NRBC%) 0.0 % 0.0-0.2 MANDIFF (test code = MDIFF) NO NO RBC MORPH (test code = RBCMOR) NORMAL
--- OUTSIDE RECORDS SUMMARY | 2019-12-24 13:49 | XMS REPORT | Summary of Care ---
Author Author [facility] Organization [facility] Address Unknown Phone Unavailable Encounter LETTY Bruno(MIGUEL) [id number] Date(s): 11/22/17 - 11/22/17 [facility] [address] [place] [address]- [phone] Discharge Disposition: Non-Emergent Attending Physician: Edin Arthur MD Vital Signs Most recent to 1 oldest [Reference Range]: Temperature Oral 97.6 DegF [96.4-99.1 DegF] (11/22/17 5:53 AM) Blood Pressure 101/65 mmHg [90-140/60-90 mmHg] (11/22/17 5:53 AM) Respiratory Rate 18 BRMIN [14-20 BRMIN] (11/22/17 5:53 AM) Peripheral Pulse 90 bpm Rate [60-100 bpm] (11/22/17 5:53 AM) Problem List No data available for this section Allergies, Adverse Reactions, Alerts Substance Reaction Severity Status NKDA Active Medications No data available for this section Results No data available for this section Immunizations No data available for this section Procedures No data available for this section Social History Social History Type Response Smoking Status Never smoker; Type: Cigaret jessica; Concerns about tobacco use in household: No; Exposure to Tobacco Smoke None; Cig arette Smoking Last 365 Days No; Reg Smoking Cessation Counseling No entered on: 11/22/17 Assessment and Plan No data available for this section
--- OUTSIDE RECORDS SUMMARY | 2019-12-24 13:49 | XMS REPORT | Summary of Care ---
Author Author [facility] Amariny Organization [facility] Address Unknown Phone Unavailable Encounter HQ Damion(FIN) [id number] Date(s): 01/11/19 - 01/11/19 [facility] [address] [place] [address]- [phone] Discharge Disposition: Home or Self Care Attending Physician: Ying Turcios DO Vital Signs Most recent to 1 oldest [Reference Range]: Height 160.02 cm (01/11/19 7:11 AM) Temperature Oral 97.9 DegF [96.4-99.1 DegF] (01/11/19 7:11 AM) Blood Pressure 133/82 mmHg [90-140/60-90 mmHg] (01/11/19 7:11 AM) Peripheral Pulse 84 bpm Rate [60-100 bpm] (01/11/19 7:11 AM) Weight 140.909 kg (01/11/19 7:11 AM) Body Mass Index 55.03 m2 (01/11/19 7:11 AM) Problem List Condition Effective Dates Status Health Status Informan t Anxiety and Active depression(Confirmed ) Bipolar disease, Active chronic(Confirmed) Encounter for weight Active loss counseling(Confirmed ) Morbid Active obesity(Confirmed) (Confirmed) 06/20/18 - 06/21/18 Resolved (Confirmed) 06/15/07 - 03/01/08 Resolved Rosacea(Confirmed) Active Allergies, Adverse Reactions, Alerts No Known Medication Allergies Medications hydrOXYzine pamoate 50 mg oral capsule 50 mg = 1 cap, PO, TID, PRN Anxiety, X 10 day, # 60 cap, 0 Refill(s), Pharmacy: [id number] Start Date: 01/11/19 Stop Date: 01/21/19 Status: Ordered MetroGel 1% topical gel 1 appl, TOP, Daily, # 45 gm, 0 Refill(s), Pharmacy: [id number] Start Date: 01/11/19 Stop Date: 01/18/19 Status: Ordered SEROquel 100 mg oral tablet 100 mg = 1 tab, PO, BID, # 60 tab, 3 Refill(s), Pharmacy: [facility]/pharmacy #[id number] Start Date: 01/11/19 Status: Ordered Results No data available for [...] Reg Smoking Cessation Counseling No entered on: 01/11/19 Assessment and Plan No data available for this section
[2019-12-24] MEDS ORDERED: BACTRIM DS TAB1 EACH PO (14:45)
[2019-12-24] MEDS ORDERED: DIFLUCAN150 MG PO (14:46)
[2019-12-24] MEDS ORDERED: TYLENOL WITH C1 EACH PO (14:50)
[2019-12-24 15:00] VITALS: BP 129/80
--- NOTE | 2019-12-25 03:43 | Emergency Department Note ---
History of Present Illnes History of Present Illness Chief Complaint: Genitourinary History of Present Illness This is a 29 year old female who presents with a 5 day history of dy suria, frequency, along with vaginal itching. She is also here to see if I will fill an Rx for Tylenol #3 for her, as the dentist wrote her an Rx for this on 12/22/2019, but she failed to put her LILA on the Rx, so the Pharmacy will not fill it. Pt has been on Amoxicillin since the onset of these urinary symptoms. The Amoxil was for dental infection. Pt reports that she had a "root canal" on 12/19/2019and has been taking Amoxil and the Tylenol #3, for the pain, associated with this oral surgery. Pt has the Rx from the dentist and there is no LILA listed. No F/C/N/V PARTS PROCESSOR aware [place] website queried and pt filled an Rx for Tylenol #3, on 12/19/2019, # 20. She states that she has been taking 1 tab q6 hours, and she has now run out them. This is within the allotted time, and she would be out of them today. She is also taking Ibuprofen. Historian: Patient Arrival Mode: Car Urban Renewal Manager Required: No Onset (how long ago): day(s) (5) Location: Tooth # 16 Quality: constant ache Radiation: non-radiation Onset quality: sudden Duration (how long): day(s) (5) Timing of current episode: constant Progression: improving Chronicity: new Context: recent surgery Relieving factors: medication Exacerbating factors: none Associated symptoms: denies other symptoms Treatments prior to arrival: none Past Medical/Family History Physician Review I have reviewed the patient's past medical and family history. Any updates have been documented here. Past Medical History Recent Fever: No Clinical Suspicion of Infectio: No New/Unexplained Change in Ment: No Past Medical History: None, TIA, Depression Other Medical History: BIPOLAR Past Surgical History: None Social History Smoking Cessation: Never Smoker Alcohol Use: None TB Exposure/Symptoms: No Physically hurt or threatened: No Family History Family history of heart diseas: No Other Last Tetanus: UTD Any Pre-Existing Lines (PICC,: No Is patient up to date on immun: Yes Review of Systems Review of Systems Constitutional: no symptoms EENTM: no symptoms Respiratory: no symptoms Gastrointestinal: no symptoms Genitourinary: dysuria, frequency, other (vaginal itching) Neurological: no symptoms Psychological: no symptoms Hematological/Lymphatic: no symptoms Review of other systems All other systems reviewed and negative. Physical Exam Related Data Allergies: Coded Allergies: No Known Allergies (Unverified , 05/19/19) Vital signs reviewed: Yes Physical Exam CONSTITUTIONAL Constitutional: well-developed, well-nourished HENT HENT: normocephalic, atraumatic, oropharynx clear/moist, nose normal, dental caries (Poor dentition; missing tooth # 16 (site or root canal); teeth decayed and broken off at the root: # 31, #32, # 17 and # 18) HENT L/R: left ext ear normal, right ext ear normal EYES Eyes: PERRL, conjunctivae normal NECK Neck: ROM normal PULMONARY Pulmonary: effort normal, breath sounds normal CARDIOVASCULAR Cardiovascular: regular rhythm, heart sounds normal, capillary refill normal, normal rate GASTROINTESTINAL Abdominal: soft, nontender, bowel sounds normal GENITOURINARY Genitourinary: exam deferred SKIN Skin: warm, dry MUSCULOSKELETAL Musculoskeletal: ROM normal NEUROLOGICAL Neurological: alert, oriented x 3, no gross motor or sensory deficits PSYCHOLOGICAL Psychological: mood/affect normal, judgement normal Results Laboratory Lab results reviewed: Yes Laboratory comments UPT - negative UA - blood - tr, janusz - small; Critical Care Time Subsequent provider I assumed direction of critical care for this patient from another provider of my specialty. Assessment & Plan Assessment & Plan Problems: (1) Vaginal candidiasis (2) UTI (urinary tract infection) (3) Dysuria (4) Pain, dental Assessment & Plan - Possible mild UTI, will change abx to Bactrim DS, stop Amoxicillin - Treat with Diflucan for vaginal candidiasis - Increase water intake - Rx for Tylenol #3 - pt given on 6 tabs, to get her through until she can reach the dentist tomorrow. Explained that she really shouldn't still be needing narcotic pain meds to control the pain, 5 days after the procedure. She likely needs to see her dentist tomorrow, to make sure that there is no infection, or something else going on, causing her pain. She requested "at least 10 tabs," and I told her that "6" is all that I can do. Patient has been seen her twice before, for dental pain, in the past year, or so, involving different teeth. She states that "Tramadol doesnt' work for her. Depart Disposition: HOME, SELF-CARE Last Vital Signs See nurse's note Home Meds Active Scripts Acetaminophen With Codeine (TYLENOL WITH CODEINE #3 TABLET) 1 Each Tablet, 1 TAB PO Q6H PRN for pain, #6 TAB 0 Refills Do NOT take and drive or operate machinery Prov:BEBE EMRAZ MD 12/24/19 Fluconazole (DIFLUCAN) 150 Mg Tablet, 1 TAB PO DAILY for yeast infection for 3 Days, #3 TAB 0 Refills Prov:BEBE MERAZ MD 12/24/19 Sulfamethoxazole/Trimethoprim (BACTRIM DS TABLET) 1 Each Tablet, 1 TAB PO BID for infection. for 10 Days, #20 TAB 0 Refills Prov:BEBE MERAZ MD 12/24/19 Acetaminophen With Codeine (TYLENOL WITH CODEINE #3 TABLET) 1 Each Tablet, 1-2 TAB PO Q6H PRN for pain, #10 TAB 0 Refills DO NOT take and drive or operate machinery. Prov:BEBE MERAZ MD 10/31/19 Penicillin V Potassium* (PENCILLIN V POTASSIUM*) 250 Mg Tab, 500 MG PO Q8H for infection for 10 Days, #30 TAB 0 Refills Take ALL antibiotics Prov:BEBE MERAZ MD 10/31/19 Ondansetron Hcl* (ZOFRAN*) 4 Mg Tablet, 4 MG SL Q6H PRN for NAUSEA, #14 MG 0 Refills Prov:MIK JONES MD 10/19/19 Benzonatate (TESSALON PERLE) 100 Mg Capsule, 100 MG PO TID for COUGH, #15 Prov:MIK JONES MD 10/19/19 Amoxicillin/Potassium Clav (AUGMENTIN 875-125 TABLET) 1 Each Tablet, 875 MG PO BID, #14 TAB Prov:MIK JONES MD 10/19/19 Oseltamivir Phosphate (TAMIFLU) 75 Mg Cap, 75 MG PO BID, #10 CAP Prov:MIK JONES MD 10/19/19 Medications in the ED None BEBE MERAZ MD December 24, 2019 14:19
== END 2019-12-24 15:10 | disposition home or self-care (01) ==
LOC: FSED 13:46
DX: R30.0 Dysuria (principal); B37.49 Other urogenital candidiasis; K08.89 Other specified disorders of teeth and supporting structures
CPT/HCPCS: 81003; 81025; 99283

== ENCOUNTER 2020-02-05 07:54 | Emergency (ER) | payer OTHER ==
[~2020-02-05] VITALS: Ht 160 cm; Wt 131.5 kg
[~2020-02-05 07:54] MED LIST changes: +BACTRIM DS TAB1 EACH PO; +DIFLUCAN150 MG PO
[2020-02-05] MEDS ORDERED: PROVENTIL HFA6.7 GM INH (08:23)
[2020-02-05] MEDS ORDERED: AZITHROMYCIN250 MG PO (08:23)
[2020-02-05] MEDS ORDERED: DEXAMETHASONE6 MG PO (08:23)
[2020-02-05] MEDS ORDERED: THERAFLU COLD1 EAC4 PO (08:23)
--- NOTE | 2020-02-05 08:23 | Emergency Department Note ---
History of Present Illnes History of Present Illness Chief Complaint: COVID PUI History of Present Illness This is a 29 year old female c/o URI symptoms, mild cough, sore throat,body ache for 3 days, she and her family has not been going out for weeks . Arrival Mode: Car Radiation: Reports non-radiation Onset quality: gradual Duration (how long): day(s) Progression: waxing and waning Relieving factors: none Exacerbating factors: none Associated symptoms: Reports denies other symptoms Treatments prior to arrival: none Past Medical/Family History Physician Review I have reviewed the patient's past medical and family history. Any updates have been documented here. Past Medical History Recent Fever: No Clinical Suspicion of Infectio: No Past Medical History: None, TIA, Depression Other Medical History: BIPOLAR Past Surgical History: None Social History Smoking Cessation: Unknown if ever smoked Any Illegal Drug Use: No Other Last Tetanus: UTD Any Pre-Existing Lines (PICC,: No Review of Systems Review of Systems Constitutional: Reports no symptoms, Reports malaise EENTM: Reports no symptoms, Reports tearing, Reports nose congestion, Reports throat pain Cardiovascular: Reports no symptoms Respiratory: Reports chest congestion, Reports cough Gastrointestinal: Reports no symptoms Genitourinary: Reports no symptoms Musculoskeletal: Reports no symptoms Integumentary: Reports no symptoms Neurological: Reports no symptoms Psychological: Reports no symptoms Endocrine: Reports no symptoms Hematological/Lymphatic: Reports no symptoms Physical Exam Related Data Allergies: Coded Allergies: No Known Allergies (Unverified , 05/19/19) Physical Exam CONSTITUTIONAL Constitutional: Present well-developed, Present well-nourished, Present obese HENT HENT: Present normocephalic, Present atraumatic, Present oropharynx clear/mo ist, Present nose normal HENT L/R: Present left ext ear normal, Present right ext ear normal EYES Eyes: Reports PERRL, Reports conjunctivae normal NECK Neck: Present ROM normal PULMONARY Pulmonary: Present effort normal, Present breath sounds normal CARDIOVASCULAR Cardiovascular: Present regular rhythm, Present heart sounds normal, Present capillary refill normal, Present normal rate GASTROINTESTINAL Abdominal: Present soft, Present nontender, Present bowel sounds normal GENITOURINARY Genitourinary: Present exam deferred SKIN Skin: Present warm, Present dry MUSCULOSKELETAL Musculoskeletal: Present ROM normal NEUROLOGICAL Neurological: Present alert, Present oriented x 3, Present no gross motor or sensory deficits PSYCHOLOGICAL Psychological: Present mood/affect normal, Present judgement normal Assessment & Plan Medical Decision Making MDM URI Assessment & Plan Final Impression: (1) Upper respiratory infection (2) Bronchitis Depart Disposition: HOME, SELF-senior care Meds Active Scripts Albuterol Sulfate (PROVENTIL HFA) 6.7 Gm Hfa.aer.ad, 1 INH INH Q4HR PRN for SHOR TNESS OF BREATH, #1 INH 3 Refills Prov:LAURIE DEMPSEY MD 02/05/20 Diphenhydra/Phenyleph/Acetamin (THERAFLU COLD AND COUGH POWDER) 1 Each Powd.pack, 1 PACKET PO Q6H PRN for fever and or pain, #12 Prov:LAURIE DEMPSEY MD 02/05/20 Azithromycin (Z-GINA) 250 Mg Tablet, 1 PKG PO DIRECTED, #1 PKG 0 Refills Prov:LAURIE DEMPSEY MD 02/05/20 Dexamethasone (DEXAMETHASONE) 6 Mg Tablet, 1 TAB PO DAILY, #7 Prov:LAURIE DEMPSEY MD 02/05/20 Acetaminophen With Codeine (TYLENOL WITH CODEINE #3 TABLET) 1 Each Tablet, 1 TAB PO Q6H PRN for pain, #6 TAB 0 Refills Do NOT take and drive or operate machinery Prov:BEBE MERAZ MD 12/24/19 Fluconazole (DIFLUCAN) 150 Mg Tablet, 1 TAB PO DAILY for yeast infection for 3 Days, #3 TAB 0 Refills Prov:BEBE MERAZ MD 12/24/19 Sulfamethoxazole/Trimethoprim (BACTRIM DS TABLET) 1 Each Tablet, 1 TAB PO BID for infection. for 10 Days, #20 TAB 0 Refills Prov:BEBE MERAZ MD 12/24/19 Acetaminophen With Codeine (TYLENOL WITH CODEINE #3 TABLET) 1 Each Tablet, 1-2 TAB PO Q6H PRN for pain, #10 TAB 0 Refills DO NOT take and drive or operate machinery. Prov:BEBE MERAZ MD 10/31/19 Penicillin V Potassium* (PENCILLIN V POTASSIUM*) 250 Mg Tab, 500 MG PO Q8H for infection for 10 Days, #30 TAB 0 Refills Take ALL antibiotics Prov:BEBE MERAZ MD 10/31/19 Ondansetron Hcl* (ZOFRAN*) 4 Mg Tablet, 4 MG SL Q6H PRN for NAUSEA, #14 MG 0 Refills Prov:MIK JONES MD 10/19/19 Benzonatate (TESSALON PERLE) 100 Mg Capsule, 100 MG PO TID for COUGH, #15 Prov:MIK JONES MD 10/19/19 Amoxicillin/Potassium Clav (AUGMENTIN 875-125 TABLET) 1 Each Tablet, 875 MG PO BID, #14 TAB Prov:MIK JONES MD 10/19/19 Oseltamivir Phosphate (TAMIFLU) 75 Mg Cap, 75 MG PO BID, #10 CAP Prov:MIK JONES MD 10/19/19 Physician Attestation Provider Attestation saturation normal, VSS can be d./c safely LAURIE DEMPSEY MD Feb 05, 2020 08:23
== END 2020-02-05 08:47 | disposition home or self-care (01) ==
LOC: FSED 08:39
DX: R05 Cough (principal); J06.9 Acute upper respiratory infection, unspecified; J40 Bronchitis, not specified as acute or chronic; F31.9 Bipolar disorder, unspecified
CPT/HCPCS: 99282

== ENCOUNTER 2020-04-01 08:53 | Emergency (ER) | payer OTHER ==
[~2020-04-01] VITALS: Ht 160 cm; Wt 131.5 kg
[~2020-04-01 08:53] MED LIST changes: +AZITHROMYCIN250 MG PO; +DEXAMETHASONE6 MG PO; +PROVENTIL HFA6.7 GM INH; +THERAFLU COLD1 EAC4 PO
[2020-04-01] MEDS ORDERED: ACETAMINOPHEN 325 MG TAB PO ONE (09:15)
--- NOTE | 2020-04-01 09:18 | Emergency Department Note ---
History of Present Illnes History of Present Illness Chief Complaint: Extremity Trauma/Pain History of Present Illness This is a 30 year old female is here for left ankle left heel pain that has been worsening over the past 5 days. Patient states that she did sprain her ankle 2 weeks ago. Denies any other injuries denies any other concerns. . Historian: Patient Arrival Mode: Car Additional Treatment PUFFER TENDER: IBUPROFEN 800MG/ EXCEDRIN /ICE PACKS Onset (how long ago): day(s) (5) Location: L ankle L foot Quality: Ache Severity: moderate Onset quality: gradual Duration (how long): day(s) (5) Timing of current episode: constant Progression: worsening Context: Denies recent illness, Denies recent surgery, Denies recent immobilization Relieving factors: none Exacerbating factors: movement, other (ambulating ) Treatments prior to arrival: NSAID Past Medical/Family History Physician Review I have reviewed the patient's past medical and family history. Any updates have been documented here. Past Medical History Recent Fever: No Clinical Suspicion of Infectio: No New/Unexplained Change in Ment: No Past Medical History: None Other Medical History: BIPOLAR Past Surgical History: None Social History Smoking Cessation: Never Smoker Counseling Performed: No Alcohol Use: None Any Illegal Drug Use: No Other Last Tetanus: UTD Any Pre-Existing Lines (PICC,: No Review of Systems Review of Systems Constitutional: Reports no symptoms EENTM: Reports no symptoms Cardiovascular: Reports no symptoms Respiratory: Reports no symptoms Gastrointestinal: Reports no symptoms Genitourinary: Reports no symptoms Musculoskeletal: Reports as per HPI Integumentary: Reports no symptoms Neurological: Reports no symptoms Psychological: Reports no symptoms Endocrine: Reports no symptoms Hematological/Lymphatic: Reports no symptoms Physical Exam Related Data Allergies: Coded Allergies: No Known Allergies (Unverified , 05/19/19) Triage Vital Signs Vital Signs Date Time Temp Pulse Resp B/P (MAP) Pulse Ox O2 Delivery O2 Flow Rate FiO2 04/01/20 08:57 98.4 89 18 132/86 100 Room Air Physical Exam CONSTITUTIONAL Constitutional: Present well-developed, Present well-nourished HENT HENT: Present normocephalic, Present atraumatic, Present oropharynx clear/moist, Present nose normal HENT L/R: Present left ext ear normal, Present right ext ear normal EYES Eyes: Reports PERRL, Reports conjunctivae normal NECK Neck: Present ROM normal PULMONARY Pulmonary: Present effort normal, Present breath sounds normal CARDIOVASCULAR Cardiovascular: Present regular rhythm, Present heart sounds normal, Present capillary refill normal, Present normal rate GASTROINTESTINAL Abdominal: Present soft, Present nontender, Present bowel sounds normal GENITOURINARY Genitourinary: Present exam deferred SKIN Skin: Present warm, Present dry MUSCULOSKELETAL Musculoskeletal: Present ROM normal, Present edema (Edema TTP L lateral mal, no joint laxity, N/V intact distally ) NEUROLOGICAL Neurological: Present alert, Present oriented x 3, Present no gross motor or sensory deficits PSYCHOLOGICAL Psychological: Present mood/affect normal, Present judgement normal Assessment & Plan Medical Decision Making MDM Pt is a 30 y/o wiht h/o strain 2 weeks ago now with L ankle L heel pain, will image and treat symptomatically. Reassessment Reassessment Pt to f/u ortho if not better in 1 week Assessment & Plan Final Impression: (1) Left foot pain (2) Left ankle pain Last Vital Signs Date Time Temp Pulse Resp B/P (MAP) Pulse Ox O2 Delivery O2 Flow Rate FiO2 04/01/20 08:57 98.4 89 18 132/86 100 Room Air Home Meds Active Scripts Tramadol Hcl (ULTRAM) 50 Mg Tablet, 50 MG PO Q6H PRN for pain, #5 TAB Prov:ERENDIRA DYE MD 04/01/20 Albuterol Sulfate (PROVENTIL HFA) 6.7 Gm Hfa.aer.ad, 1 INH INH Q4HR PRN for SHORTNESS OF BREATH, #1 INH 3 Refills Prov:LAURIE DEMPSEY MD 02/05/20 Diphenhydra/Phenyleph/Acetamin (THERAFLU COLD AND COUGH POWDER) 1 Each Powd.pack, 1 PACKET PO Q6H PRN for fever and or pain, #12 Prov:LAURIE DEMPSEY MD 02/05/20 Azithromycin (Z-GINA) 250 Mg Tablet, 1 PKG PO DIRECTED, #1 PKG 0 Refills Prov:LAURIE DEMPSEY MD 02/05/20 Dexamethasone (DEXAMETHASONE) 6 Mg Tablet, 1 TAB PO DAILY, #7 Prov:LAURIE DEMPSEY MD 02/05/20 Acetaminophen With Codeine (TYLENOL WITH CODEINE #3 TABLET) 1 Each Tablet, 1 TAB PO Q6H PRN for pain, #6 TAB 0 Refills Do NOT take and drive or operate machinery Prov:BEBE MERAZ MD 12/24/19 Fluconazole (DIFLUCAN) 150 Mg Tablet, 1 TAB PO DAILY for yeast infection for 3 Days, #3 TAB 0 Refills Prov:BEBE MERAZ MD 12/24/19 Sulfamethoxazole/Trimethoprim (BACTRIM DS TABLET) 1 Each Tablet, 1 TAB PO BID for infection. for 10 Days, #20 TAB 0 Refills Prov:BEBE MERAZ MD 12/24/19 Acetaminophen With Codeine (TYLENOL WITH CODEINE #3 TABLET) 1 Each Tablet, 1-2 TAB PO Q6H PRN for pain, #10 TAB 0 Refills DO NOT take and drive or operate machinery. Prov:BEBE MERAZ MD 10/31/19 Penicillin V Potassium* (PENCILLIN V POTASSIUM*) 250 Mg Tab, 500 MG PO Q8H for infection for 10 Days, #30 TAB 0 Refills Take ALL antibiotics Prov:BEBE MERAZ MD 10/31/19 Ondansetron Hcl* (ZOFRAN*) 4 Mg Tablet, 4 MG SL Q6H PRN for NAUSEA, #14 MG 0 Refills Prov:MIK JONES MD 10/19/19 Benzonatate (TESSALON PERLE) 100 Mg Capsule, 100 MG PO TID for COUGH, #15 Prov:MIK JONES MD 10/19/19 Amoxicillin/Potassium Clav (AUGMENTIN 875-125 TABLET) 1 Each Tablet, 875 MG PO BID, #14 TAB Prov:MIK JONES MD 10/19/19 Oseltamivir Phosphate (TAMIFLU) 75 Mg Cap, 75 MG PO BID, #10 CAP Prov:MIK JONES MD 10/19/19 ERENDIRA DYE MD Apr 01, 2020 09:18
--- OUTSIDE RECORDS SUMMARY | 2020-04-01 09:32 | XMS REPORT | Clinical Summary ---
Author Author [employer] [facility] [employer] [facility] Address Unknown Phone Unavailable Care Team Providers Care Etl Manager Name Role Phone Ana Maria Ferreira PCP [...] caries 05/22/2019 Emergency Emergency Medicine 05/22/2019 Travel after 04/01/2019 Social History Date Tobacco Use Types Packs/Day [...] Oxygen Saturation - - Inhaled Oxygen Concentration - - Weight - - Height - - Body Mass Index Plan of Treatment Not on file Results Not on fileafter 04/01/2019 Insurance Type Payer Benefit Subscriber ID Effective Phone Address Plan / Dates Group [employer] [facility] xxxxxxxxx [id number] [facility] [employer] [facility] Advance Directives For more information, please contact: [phone] Patient Line Rider Explanation Type Date Recorded Advance Directives, Living Will and Medical Power of Diplomatic Officer
--- OUTSIDE RECORDS SUMMARY | 2020-04-01 09:32 | XMS REPORT | Continuity of Care Document ---
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 12/19/2018 [facility] Diastolic (mm Hg) 56 12/19/2018 [facility] Temperature Oral (F) 98.1 F 12/19/2018 [facility] Heart Rate 90 12/19/2018 [facility] Respitory Rate 20 12/19/2018 [facility] Temperature Oral (F) 98.1 F 12/19/2018 [facility] Systolic (mm Hg) 131 12/19/2018 [facility] Diastolic (mm Hg) 84 12/19/2018 [facility] Heart Rate 98 12/19/2018 [facility] Respitory Rate 22 12/19/2018 [facility] Weight 137.273 11/28/2018 [facility] BMI Calculated 53.61 11/28/2018 [facility] Height 160.02 cm 11/28/2018 [facility] Systolic (mm Hg) 131 11/28/2018 [facility] Diastolic (mm Hg) 91 11/28/2018 [facility] Temperature Oral (F) 98.3 F 11/28/2018 [facility] Heart Rate 83 11/28/2018 [facility] Heart Rate 91 07/20/2018 [facility] Temperature Oral (F) 98.4 F 07/20/2018 [facility] Systolic (mm Hg) 104 07/20/2018 [facility] Diastolic (mm Hg) 86 07/20/2018 [facility] Respitory Rate 18 07/20/2018 [facility] Weight 128.636 07/19/2018 [facility] Temperature Oral (F) 98.1 F 07/19/2018 [facility] Systolic (mm Hg) 114 07/19/2018 [facility] Diastolic (mm Hg) 84 07/19/2018 [facility] Respitory Rate 16 07/19/2018 [facility] Heart Rate 112 07/19/2018 [facility] Systolic (mm Hg) 109 06/23/2018 [facility] Diastolic (mm Hg) 78 06/23/2018 [facility] Respitory Rate 18 06/23/2018 [facility] Heart Rate 83 06/23/2018 [facility] Temperature Oral (F) 97.4 F 06/23/2018 [facility] Respitory Rate 18 06/23/2018 [facility] Systolic (mm Hg) 99 06/23/2018 [facility] Diastolic (mm Hg) 65 06/23/2018 [facility] Temperature Oral (F) 97.4 F 06/23/2018 [facility] Heart Rate 80 06/23/2018 [facility] Temperature Oral (F) 97.6 F 06/22/2018 [facility] Systolic (mm Hg) 109 06/22/2018 [facility] Diastolic (mm Hg) 75 06/22/2018 [facility] Heart Rate 86 06/22/2018 [facility] Respitory Rate 16 06/22/2018 [facility] Height 162.56 cm 06/21/2018 [facility] Weight 130.909 06/21/2018 [facility] BMI Calculated 49.54 06/21/2018 [facility] Height 162.56 cm 06/21/2018 [facility] BMI Calculated 49.54 06/21/2018 [facility] Weight 130.909 06/21/2018 [facility] Weight 130.909 06/21/2018 [facility] Respitory Rate 18 05/25/2018 [facility] Systolic (mm Hg) 118 05/25/2018 [facility] Diastolic (mm Hg) 57 05/25/2018 [facility] Height 162.56 cm 05/25/2018 [facility] Weight 131 05/25/2018 [facility] BMI Calculated 49.57 05/25/2018 [facility] Temperature Oral (F) 98.2 F 05/25/2018 [facility] Respitory Rate 20 05/25/2018 [facility] Systolic (mm Hg) 111 05/25/2018 [facility] Diastolic (mm Hg) 71 05/25/2018 [facility] Heart Rate 125 05/25/2018 [facility] Weight 129.545 05/25/2018 [facility] Respitory Rate 19 05/25/2018 [facility] Heart Rate 121 05/25/2018 [facility] Systolic (mm Hg) 116 05/25/2018 [facility] Diastolic (mm Hg) 70 05/25/2018 [facility] Temperature Oral (F) 98.5 F 05/25/2018 [facility] Temperature Oral (F) 97.6 F 11/22/2017 [facility] Systolic (mm Hg) 101 11/22/2017 [facility] Diastolic (mm Hg) 65 11/22/2017 [facility] Heart Rate 90 11/22/2017 [facility] Respitory Rate 18 11/22/2017 [facility] Systolic (mm Hg) 129 08/09/2017 [facility] Diastolic (mm Hg) 78 08/09/2017 [facility] Respitory Rate 18 08/09/2017 [facility] Heart Rate 97 08/09/2017 [facility] Temperature Oral (F) 98.5 F 08/09/2017 [facility] Weight 127.273 08/09/2017 [facility] Systolic (mm Hg) 136 08/09/2017 [facility] Diastolic (mm Hg) 83 08/09/2017 [facility] Respitory Rate 18 08/09/2017 [facility] Temperature Oral (F) 98.4 F 08/09/2017 [facility] Heart Rate 107 08/09/2017 [facility] Encounters Location Location Details Encounter Type Encounter Number Reason For Visit Attending Provider ADM Date DC Date Status Source [facility] Emergency [id number] Esau Landon 08/07/2017 08/07/[address] [facility] Emergency [id number] Shaun Gallaghern 08/09/2017 08/09/2017 [facility] Emergency [id number] Edin Belljennifer 11/22/2017 11/22/2017 [facility] Emergency [id number] Torri Wesley Wren 05/25/2018 05/25/2018 [facility] Inpatient [id number] Peace Nwegbo 06/21/2018 06/23/2018 [facility] Emergency [id number] Katerin Eduvie 07/19/2018 07/20/2018 [facility] Outpatient [id number] Jaylen Newberry 11/28/2018 [facility] Primary [facility] Outpatient [id number] Celsa-Beatriz Karolina 11/28/2018 11/29/2018 [facility] Emergency [id number] Katerin Eduvie 12/19/2018 12/19/2018 [facility] Emergency [id number] Matt Bermudez 01/08/2019 01/08/2019 [facility] Outpatient [id number] Celsa-Beatriz Karolina 01/11/2019 [facility] Outpatient [id number] Celsa-Beatriz Karolina 01/11/2019 01/12/2019 [facility] Primary [facility] Ambulatory Pre-Reg [id number] Malcolm Flores 01/23/2019 01/23/2019 [facility] Outpatient [id number] Celsa-Beatriz Karolina 01/25/[address] [facility] Emergency [id number] Alessandro Wetzel 05/22/2019 05/22/2019 [facility] Outpatient [id number] Vineet Bingham 05/26/2019 [facility] Outpatient [id number] 05/26/2019 05/27/2019 [facility] Family Medicine Gold Pod Phone Message [id number] 07/05/2019 07/07/2019 [facility] Outpatient [id number] Sheryl Richards 10/06/2019 Active [facility] [place] Outpatient [id number] Sheryl Richards 10/06/2019 10/07/2019 [facility] Procedures Procedure Code Date Perfomer Comments Source Unremarkable [id number] [facility], [place] Assessment and Plan Assessment and Plan Date [...] Dx: vag del. Esau Venegas MD, PhD Body Liner Attending Extracted from:Title: Clinical Document Author: [...] for pain management. Esau Venegas MD, PhD Body Liner Attending Extracted from:Title: History and Physical [...] be induced at 38 weeks b y [facility], but is unsusre of indication. Will actively manage. 2. GBS positive- PCN for GBS PPX. 3. N/V- will obtain CMP. Zofran PRN. 4. LSIL pap- colposcopy PP, per [facility] gu idelines. Follow up with [facility] outpatient. 5. Dispo- To L&D for pitocin and PCN. 06/23/2018 [facility] Plan of Care No Data Provided for [...] Counseling No entered on: 01/23/19 11/28/2018 [facility] Social History TypeResponse Alcohol Current, Frequency: 1-2 [...] Cessation Counseling No entered on: 05/22/19 11/28/2018 [facility] Social History TypeResponse Smoking Status Never smoker; Type: Cigarettes; Concerns about tobacco use in household: No; Exposure to Tobacco Smoke None; Cigarette Smoking Last 365 Days No; Reg Smoking Cessation Counseling No entered on: 11/22/17 11/22/2017 [facility] Social History TypeResponse Smoking Status Never smoker; Exposure to Tobacco Smoke None; Cigarette Smoking Last 365 Days No; Reg Smoking Cessation Counseling No 08/09/2017 [facility] Family History No Data Provided for This Section Advance Directives No Data Provided for This Section Functional Status No Data Provided for This Section
--- OUTSIDE RECORDS SUMMARY | 2020-04-01 09:32 | XMS REPORT | Continuity of Care Document ---
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, 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, 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 date: 07/20/18 19:36:00 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, 2.48, m2 Yasir Cartagena Cephalexin 500 MG Oral Capsule [Keflex] 2018-05-25 03:41:00 No 500 mg = 1 cap, PO, QID, X 7 day, # 28 cap, 0 Refill(s) Yasir Cartagena Metronidazole 500 MG Oral Tablet [Flagyl] 2018-05-25 03:34:00 No 2,000 mg = 4 tab, PO, ONCE, # 4 tab, 1 Refill(s) Yasir Cartagena Tylenol 2018-05-25 02:52:00 No 1,000 mg, Route: PO, ONCE, Dosing Weight 131, kg, Start date: 05/24/18 21:52:00 CDT, Stop date: 05/24/18 21:52:00 CDT Yasir Cartagena Dulcolax Laxative 2018-05-25 02:27:00 No 5 mg, PO, Daily, 0 Refill(s) Yasir Cartagena Promethazine 2018-05-25 02:26:00 No 0 Refil l(s) [facility] 2018-05-25 02:26:00 No PO, 0 Refill (s) 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, Stop date: 08/08/17 23:10:00 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 Yasir Cartagena Vital Signs Vital Name Observation Time Observation Value Comments Source Weight 2020-02-05 08:04:00 290 [lb_av] [facility] BMI (Body Mass Index) 2020-02-05 08:04:00 51.4 kg/m2 [facility] Body Temperature 2019-12-24 15:00:00 97.3 [degF] [facility] Weight 2019-12-24 14:05:00 325 [lb_av] [facility] BMI (Body Mass Index) 2019-12-24 14:05:00 57.6 kg/m2 [facility] Systolic (mm Hg) 2019-10-06 21:16:00 [facility] [place] Diastolic (mm Hg) 2019-10-06 21:16:00 [facility] [place] Heart Rate 2019-10-06 21:16:00 [facility] Temperature Oral (F) 2019-10-06 21:16:00 98.3 F [facility] Systolic blood pressure 2019-08-27 16:19:00 119 mm[Hg] [facility] Diastolic blood pressure 2019-08-27 16:19:00 70 mm[Hg] [facility] Heart rate 2019-08-27 16:19:00 76 /min [facility] Body temperature 2019-08-27 16:19:00 36.61 Ivon [facility] Respiratory rate 2019-08-27 16:19:00 18 /min [facility] Body height 2019-08-27 16:19:00 160 cm [facility] Body weight Measured 2019-08-27 16:19:00 131.543 kg [facility] BMI 2019-08-27 16:19:00 51.37 kg/m2 [facility] Oxygen saturation in Arterial blood by Pulse oximetry 08-27 16:19:00 100 /[facility] 2019-05-26 14:32:00 [facility] [place] Diastolic (mm Hg) 2019-05-26 14:32:00 [facility] [place] Heart Rate 2019-05-26 14:32:00 [facility] Respitory Rate 2019-05-26 14:32:00 [facility] [place] Height 2019-05-26 14:32:00 154.94 cm [facility] Weight 2019-05-26 14:32:00 [facility] BMI Calculated 2019-05-26 14:32:00 [facility] [place] Systolic (mm Hg) 2019-05-22 12:48:00 William [facility] [place] Diastolic (mm Hg) 2019-05-22 12:48:00 [facility] [place] Heart Rate 2019-05-22 12:48:00 [facility] Respitory Rate 2019-05-22 12:48:00 [facility] Temperature Oral (F) 2019-05-22 12:48:00 97.9 F [facility] Height 2019-05-22 12:48:00 160.02 cm [facility] [place] BMI Calculated 2019-05-22 12:48:00 [facility] Weight 2019-05-22 12:48:00 [facility] Systolic blood pressure 2019-05-22 07:18:00 150 mm[Hg] [facility] [facility] Diastolic blood pressure 2019-05-22 07:18:00 70 mm[Hg] [facility] Heart rate 2019-05-22 07:18:00 77 /min [place] [facility] Respiratory rate 2019-05-22 07:18:00 16 /min [place] [facility] Oxygen saturation in Arterial blood by Pulse oximetry 2018-08 07:18:00 99 /min [place] [facility] Body temperature 2019-05-22 06:17:06 36.89 [place]von [place] [facility] BMI Calculated 2019-01-11 12:11:00 [facility] [place] Height 2019-01-11 12:11:00 160.02 cm [facility] Weight 2019-01-11 12:11:00 [facility] [place] Systolic (mm Hg) 2019-01-11 12:11:00 [facility] [place] Diastolic (mm Hg) 2019-01-11 12:11:00 [facility] [place] Heart Rate 2019-01-11 12:11:00 [facility] [place] Temperature Oral (F) 2019-01-11 12:11:00 97.9 F [facility] Weight 2019-01-08 08:31:00 [facility] Temperature Oral (F) 2019-01-08 08:31:00 98.1 F [facility] Systolic (mm Hg) 2019-01-08 08:31:00 William [facility] [place] Diastolic (mm Hg) 2019-01-08 08:31:00 [facility] [place] Heart Rate 2019-01-08 08:31:00 [facility] Respitory Rate 2019-01-08 08:31:00 [facility] [place] Temperature Oral (F) 2018-12-19 14:34:00 97.9 F [facility] [place] Respitory Rate 2018-12-19 14:34:00 [facility] [place] Heart Rate 2018-12-19 14:34:00 [facility] Systolic (mm Hg) 2018-12-19 14:34:00 [facility] [place] Diastolic (mm Hg) 2018-12-19 14:34:00 [facility] [place] Systolic (mm Hg) 2018-12-19 12:21:00 [facility] [place] Diastolic (mm Hg) 2018-12-19 12:21:00 [facility] [place] Temperature Oral (F) 2018-12-19 12:21:00 98.1 F [facility] Heart Rate 2018-12-19 12:21:00 [facility] [place] Respitory Rate 2018-12-19 12:21:00 [facility] [place] Temperature Oral (F) 2018-12-19 11:19:00 98.1 F [facility] Systolic (mm Hg) 2018-12-19 11:19:00 [facility] [place] Diastolic (mm Hg) 2018-12-19 11:19:00 [facility] [place] Heart Rate 2018-12-19 11:19:00 [facility] [place] Respitory Rate 2018-12-19 11:19:00 [facility] [place] Weight 2018-11-28 19:15:00 [facility] BMI Calculated 2018-11-28 19:15:00 [facility] [place] Height 2018-11-28 19:15:00 160.02 cm [facility] Systolic (mm Hg) 2018-11-28 19:15:00 William [facility] [place] Diastolic (mm Hg) 2018-11-28 19:15:00 [facility] [place] Temperature Oral (F) 2018-11-28 19:15:00 98.3 F [facility] [place] Heart Rate 2018-11-28 19:15:00 [facility] [place] Heart Rate 2018-07-20 02:22:00 [facility] Temperature Oral (F) 2018-07-20 02:22:00 98.4 F [facility] [place] Systolic (mm Hg) 2018-07-20 02:22:00 William [facility] [place] Diastolic (mm Hg) 2018-07-20 02:22:00 [facility] [place] Respitory Rate 2018-07-20 02:22:00 [facility] [place] Weight 2018-07-19 21:04:00 [facility] [place] Temperature Oral (F) 2018-07-19 21:04:00 98.1 F [facility] Systolic (mm Hg) 2018-07-19 21:04:00 [facility] [place] Diastolic (mm Hg) 2018-07-19 21:04:00 [facility] [place] Respitory Rate 2018-07-19 21:04:00 [facility] [place] Heart Rate 2018-07-19 21:04:00 [facility] [place] Systolic (mm Hg) 2018-06-23 14:28:00 [facility] [place] Diastolic (mm Hg) 2018-06-23 14:28:00 [facility] [place] Respitory Rate 2018-06-23 14:28:00 [facility] [place] Heart Rate 2018-06-23 14:28:00 [facility] [place] Temperature Oral (F) 2018-06-23 14:28:00 97.4 F [facility] [place] Respitory Rate 2018-06-23 06:12:00 [facility] [place] Systolic (mm Hg) 2018-06-23 06:12:00 [facility] [place] Diastolic (mm Hg) 2018-06-23 06:12:00 [facility] [place] Temperature Oral (F) 2018-06-23 06:12:00 97.4 F [facility] Heart Rate 2018-06-23 06:12:00 [facility] Temperature Oral (F) 2018-06-22 23:08:00 97.6 F [facility] [place] Systolic (mm Hg) 2018-06-22 23:08:00 [facility] [place] Diastolic (mm Hg) 2018-06-22 23:08:00 [facility] Heart Rate 2018-06-22 23:08:00 [facility] [place] Respitory Rate 2018-06-22 23:08:00 [facility] Height 2018-06-21 02:26:00 162.56 cm [facility] Weight 2018-06-21 02:26:00 [facility] BMI Calculated 2018-06-21 02:26:00 [facility] Height 2018-06-21 01:26:00 162.56 cm [facility] [place] BMI Calculated 2018-06-21 01:26:00 [facility] [place] Weight 2018-06-21 01:26:00 [facility] Weight 2018-06-21 00:59:00 [facility] Respitory Rate 2018-05-25 03:05:00 [facility] Systolic (mm Hg) 2018-05-25 03:05:00 [facility] [place] Diastolic (mm Hg) 2018-05-25 03:05:00 [facility] [place] Height 2018-05-25 02:00:00 162.56 cm [facility] Weight 2018-05-25 02:00:00 [facility] BMI Calculated 2018-05-25 02:00:00 [facility] Temperature Oral (F) 2018-05-25 02:00:00 98.2 F [facility] Respitory Rate 2018-05-25 02:00:00 [facility] [place] Systolic (mm Hg) 2018-05-25 02:00:00 William [facility] [place] Diastolic (mm Hg) 2018-05-25 02:00:00 [facility] [place] Heart Rate 2018-05-25 02:00:00 [facility] Weight 2018-05-25 01:28:00 [facility] Respitory Rate 2018-05-25 01:28:00 [facility] Heart Rate 2018-05-25 01:28:00 [facility] [place] Systolic (mm Hg) 2018-05-25 01:28:00 [facility] [place] Diastolic (mm Hg) 2018-05-25 01:28:00 [facility] [place] Temperature Oral (F) 2018-05-25 01:28:00 98.5 F [facility] [place] Temperature Oral (F) 2017-11-22 10:53:00 97.6 F [facility] [place] Systolic (mm Hg) 2017-11-22 10:53:00 [facility] [place] Diastolic (mm Hg) 2017-11-22 10:53:00 [facility] [place] Heart Rate 2017-11-22 10:53:00 [facility] [place] Respitory Rate 2017-11-22 10:53:00 [facility] Systolic (mm Hg) 2017-08-09 05:35:00 [facility] [place] Diastolic (mm Hg) 2017-08-09 05:35:00 [facility] [place] Respitory Rate 2017-08-09 05:35:00 [facility] Heart Rate 2017-08-09 05:35:00 [facility] Temperature Oral (F) 2017-08-09 05:35:00 98.5 F [facility] Weight 2017-08-09 03:39:00 [facility] Systolic (mm Hg) 2017-08-09 03:39:00 William willis [facility] Diastolic (mm Hg) 2017-08-09 03:39:00 [facility] [place] Respitory Rate 2017-08-09 03:39:00 Shana al [place] Temperature Oral (F) 2017-08-09 03:39:00 98.4 F [facility] Heart Rate 2017-08-09 03:39:00 [facility] Procedures Procedure Date / Time Performed Performing Clinician Sourc e STD PANEL - CT/GC RNA 2019-08-27 18:33:00 [facility] WET PREP 2019-08-27 18:33:00 [facility] URINE CULTURE 2019-08-27 16:34:00 [facility] URINALYSIS W/ REFLEX URINE CULTURE 2019-08-27 16:34:00 [facility] SCREEN, URINE 2019-08-27 16:34:00 [facility] Ruby chen [facility] NJX AA&/STRD TRIGEMINAL NRV 2019-05-19 00:00:00 [facility] Plan of Care Planned Activity Planned Date Details Comments Source Instructions Upper Respiratory Infection - Adult [facility] Encounters Start Date/Time End Date/Time Encounter Type Admission Type [facility] Facility Care Department Encounter ID Source 2018-06-20 19:37:00 Inpatient E [facility] [id number] [facility] 2020-02-05 08:39:00 2020-02-05 08:47:00 Departed Emergency Room [facility] [id number] [facility] 2019-12-28 00:00:00 2019-12-28 00:00:00 Telephone Lory Duran [facility] PHYSICAL CHEMISTRY TEACHER [facility] [id number] 2019-12-27 00:00:00 2019-12-27 00:00:00 Telephone Misti Johnson [facility] PHYSICAL CHEMISTRY TEACHER [facility] MATERNAL & CHILD HEALTH [facility] [id number] 2019-12-24 13:46:00 2019-12-24 15:10:[address] [facility] [id number] [facility] 2019-10-31 12:42:00 2019-10-31 13:30:[address] [facility] [id number] [facility] 2019-10-19 10:55:00 2019-10-19 12:19:[address] [facility] [id number] [facility] 2019-10-06 15:10:00 2019-10-06 23:59:59 Outpatient Gold Richards [facility] [id number] 2019-07-05 13:47:09 2019-07-06 23:59:59 Outpatient [facility] [id number] 2019-05-26 09:20:00 2019-05-26 23:59:59 Outpatient [facility] [id number] 2019-05-22 07:40:25 2019-05-22 08:06:00 Outpatient Alessandro Wetzel [facility] [id number] 2019-05-22 07:40:00 2019-05-22 07:40:00 Emergency E [facility] [id number] 2019-05-19 07:09:00 2019-05-19 07:58:[address] [facility] [id number] [facility] 2019-01-23 14:00:00 2019-01-23 14:00:00 Outpatient Radhika Flores [facility] [id number] 2019-01-11 15:30:00 2019-01-11 23:59:59 Outpatient Lucas Turcois [facility] [id number] 2019-01-08 03:18:56 2019-01-08 06:08:00 Outpatient Matt Castillo [facility] [id number] 2019-01-08 03:18:00 2019-01-08 03:18:00 Emergency [place] [id number] [facility] 2018-12-19 06:15:10 2018-12-19 09:35:00 Outpatient Gricelda Alexiedin Yu [facility] [id number] 2018-12-19 06:15:00 2018-12-19 06:15:00 Emergency E [place] [id number] [facility] 2018-11-28 14:00:00 2018-11-28 23:59:59 Outpatient Lucas Turcios [facility] [id number] 2018-07-19 14:41:00 2018-07-19 20:29:00 Outpatient Gricelda Katerin Aimee [facility] [id number] 2018-07-19 14:41:00 2018-07-19 14:41:00 Emergency E [place] [id number] [facility] 2018-06-20 18:53:00 2018-06-23 15:54:00 Outpatient Dharmesh Esqueda [facility] [id number] 2018-05-24 20:23:00 2018-05-24 22:51:00 Outpatient Best Vernon [facility] [id number] 2018-05-24 20:23:00 2018-05-24 20:23:00 Emergency E [address] 2017-11-22 05:52:00 2017-11-22 09:27:00 Outpatient Nicki Arthur or Hernando [facility] [id number] 2017-08-08 21:15:00 2017-08-08 23:37:00 Outpatient Shaun Lama [facility] [id number] 2017-08-07 12:46:00 2017-08-07 13:47:00 Outpatient Esau Landon [facility] [id number] Results Test Description Test Time Test Comments Results Result Comments Source STD Panel - CT/GC RNA 2019-09-01 18:14:00 Test Item C. trachomatis RNA, TMA (test code = 8279433) NOT DETECTED N. gonorrhoeae RNA, TMA (test code = 0903580) NOT DETECTED REFERENCE RANGE: NOT DETECTED Methodology: Music Department Chair Mediated Amplification (TMA)to detect RNA. The analytical performance characteristics of this assay,when used to test SurePath(TM) specimens have been determinedby [facility]. The modificationshave not been cleared or approved by the FDA. This assayhas been validated pursuant to the CLIA regulations andis used for clinical purposes. For additional information, please refer tohttps://education.Zoomy/faq/SCV635(This link is being provided for informational/educational purposes only.) APRIL (test code = APRIL) Performing Lab *QDID [facility] [address] [place] [id number] Jennifer Mart MD [facility] [id number] 08:31:00* Test Item Value Reference Range Interpretation Comments Result (test code = 6463-4) See comment APRIL (test code = APRIL) <10,000 col/mL Non-lactose f ermenting gram negative rods<10,000 col/mL Lactose fermenting gram negative rods [facility] [id number] 18:38:00* Test Item Value Reference Range Interpretation Comments WBC - wet prep (test code = 97397-1) Few white blood cells seen Clue cells - wet prep (test code = 95456-4) No clue cells seen Yeast - wet prep (test code = 41245-8) No budding yeast seen Trichomonas - wet prep (test code = 6565-6) No Trichomonas seen Bacteria - wet prep (test code = 84745-9) Few bacteria seen [facility] [id number] 18:38:00* Test Item Value Reference Range Interpretation Comments WBC WET PREP (BEAKER) (test code = 528) Few white blood cells seen CLUE CELLS (BEAKER) (test code = 526) No clue cells seen YEAST WET PREP (BEAKER) (test code = 530) No budding yeast seen TRICH WET PREP (BEAKER) (test code = 531) No Trichomonas seen BACT WET PREP (BEAKER) (test code = 532) Few bacteria seen Urinalysis w/Microscopic + Reflex to [id number] 17:01:00* Test Item Value Reference Range Interpretation Comments Color, UA (test code = 5778-6) Yellow Clarity, UA (test code = 5767-9) Clear Specific [place], UA (test code = 5811-5) 1.025 1.001-1.035 pH, UA (test code = 5803-2) 5.5 5.0-8.0 Protein, UA (test code = 34087-1) Negative Negative Glucose, UA (test code = 365) Negative Negative Ketones, UA (test code = 2514-8) Negative Negative Bilirubin, UA (test code = 58972-6) Negative Negative Blood, UA (test code = 75400-0) Small Negative A Nitrite, UA (test code = 5802-4) Negative Negative Leukocytes, UA (test code = 5799-2) Moderate Negative A Urobilinogen, UA (test code = 62194-7) 0.2 mg/dL 0.2-1 Bacteria, UA (test code = 95911-9) Few RBC, UA (test code = 799-7) <5 /HPF WBC, UA (test code = 35526-5) 10-20 /HPF SQUAMOUS EPITHELIAL (test code = 22342-6) 5-10 /HPF Specimen Source (test code = 2795) Lab Interpretation (test code = 46421-8) [facility] [id number] 17:01:00* Test Item Value Reference Range Interpretation [...] 5-10 /HPF SOURCE(BEAKER) (test code = 2795) Screen, [id number] 16:45:00* Test Item Value Reference Range Interpretation Comments Preg Test, Ur (test code = 2112-1) Negative [facility] S[facility], [id number] 16:45:00* Test Item Value Reference Range Interpretation Comments TEST URINE (BEAKER) (test code = 583) Negative CT, MAXILLOFACIAL AREA, WO [id number] 11:07:00Reason for exam:->ASSAULT VICTIMReason for exam:->strangledPt got [...] Robert MDReport Verified Date/Time: 01/07/2019 11:07:28 Readi ng Location: [address] Neuro Reading Room [id number] 12:27:00Negative (12/19/18 7:27 AM)[facility] [id number] 16:45:79561Bkcyvtqk HermannCHEM [id number] 16:45:00* Test Item Value Reference Range Interpretation Comments B/C Ratio (test code = B/C Ratio) 13 1 6-25 [facility] [id number] 16:45:0015.0[facility] PANEL 2018-06-22 16:45:0019[facility] [id number] 16:45:0025[facility] [id number] 16:45:002.0[facility] [id number] 16:45:008[facility] [id number] 16:45:000.63[facility] [id number] 16:45:61126Ykozyhhn [facility]ann[facility] [id number] 16:45:0024 [facility] [id number] 16:45:79558Mckbbqwh [facility]annCHE[facility] PANEL 2018-06-22 16:45:004.0[facility] [id number] 16:45:88236Ruxzpqbh [facility] [id number] 16:45:008.0[facility] [id number] 16:45:00* Test Item Value Reference Range Interpretation Comments A/G Ratio (test code = A/G Ratio) 0.6 1 0.7-1.6 [facility] [id number] 16:45:003.6[facility] PANEL 2018-06-22 16:45:005.6[facility] [id number] 16:45:00<0.1[facility] [id number] 16:45:97972Dfeexcnm [id number] 10:24:0011.2[facility]orial [id number] 10:24:0032.8[facility] BLOOD BANK [id number] 02:09:00Negative (06/20/18 8:09 PM)[facility] BLOOD BANK [id number] 02:09:00See Note 1(06/20/18 8:09 PM)[facility] [id number] 02:09:009.1[facility] [id number] 02:09:004.6[facility] [id number] 02:09:01564Wgzymahe [facility]annCHE[facility] [id number] 02:09:54416Smuchiov [facility] [id number] 02:09:06876 [facility] [id number] 02:09:00* Test Item Value Reference Range Interpretation Comments B/C Ratio (test code = B/C Ratio) 10 1 6-25 [facility] [id number] 02:09:0026[facility] PANEL 2018-06-21 02:09:0016.6[facility] [id number] 02:09:002.9[facility] [id number] 02:09:0053[facility] [id number] 02:09:002.1[facility] [id number] 02:09:0023[facility] [id number] 02:09:000.62[facility] [id number] 02:09:006 [facility] [id number] 02:09:0079[facility] PANEL 2018-06-21 02:09:00* Test Item Value Reference Range Interpretation Comments A/G Ratio (test code = A/G Ratio) 0.6 1 0.7-1.6 [facility] [id number] 02:09:004.8[facility]annCHE[facility] PANEL 2018-06-21 02:09:007.7[facility] [id number] 02:09:73212Qqsxooig HermannDRUG [id number] 02:09:00Negative *NA*(06/20/18 8:09 PM)[facility] [id number] 02:09:00Negative *NA*(06/20/18 8:09 PM)[facility] [id number] 02:09:00See Note (06/20/18 8:09 PM)[facility] [id number] 02:09:00Negative *NA*(06/20/18 8:09 PM)[facility] [id number] 02:09:00Negative *NA*(06/20/18 8:09 PM)[facility] [id number] 02:09:00Negative *NA*(06/20/18 8:09 PM)[facility] [id number] 02:09:00Negative *NA*(06/20/18 8:09 PM)[facility] [id number] 02:09:00Negative *NA*(06/20/18 8:09 PM)[facility] [id number] 02:09:0081.2[facility] LkwrpubOCQDSPBTPL9254-19-29 02:09:00 13.1[facility] [id number] 02:09:005.2[facility]annHEMATOLOGY 2018-06-21 02:09:000.1[facility] [id number] 02:09:000.4[facility] JgftvimAFSXDNGULE2368-84-50 02:09:001.8[facility] DsjfevuHYFAFUZUJR4537-91-48 02:09:0011.4[facility] TxutrejPHKAKWPYSD6410-26-84 02:09:000.7[facility] SIHKZBWBAS6860-13-34 02:09:000.1[facility] YtqvghzGGHSVGGRMW2423-34-77 02:09:008.6 [facility] VwgxhfhHFRNGZJVQL8830-51-88 02:09:0034.1[facility] 2018-06-21 02:09:00* Test Item Value Reference Range Interpretation Comments MCH (test code = MCH) 29.9 pg 27.0-31.0 [facility] DwfzujaPVJKAJVCHL2894-34-83 02:09:0014.2[facility] 2018-06-21 02:09:50497Ehzvpueo YrggrbbSLKOMBBTFB8254-79-15 02:09:0014.1[facility] WutnuwbZVEDHOHGNS3556-92-59 02:09:004.96[facility] KokqxkqRJQXVTIDUA2221-17-20 02:09:0014.8[facility] OkmhtkqUJZPXUDMYI1924-70-34 02:09:0087.8[facility] [place] NGGYQDCMRF5120-97-27 02:09:0043.5[facility] ZajmvkbOLIDUMURSU0011-13-37 02:09:00 0.3[facility] TnlcxnyIRZNZHITCZ7624-26-47 02:09:00Negative *NA*(06/20/18 8:09 PM) [facility] UigqjruCFJHOCIGRL1292-29-14 02:09:00Non-Reactive *NA*(06/20/18 8:09 PM) [facility] FzrnuauGWQFPMPCNU6367-05-26 02:09:00Negative *NA*(06/20/18 8:09 PM) [facility] EGQBG7799-11-51 02:22:0017[facility] USIWS7390-65-95 02:22:003[facility] NLTHW5901-22-98 02:22:00 Moderate *ABN*(05/24/18 9:22 PM)[facility] VKVPM4367-89-39 02:22:002.0[facility] FOGBC9276-44-01 02:22:00Large *ABN*(05/24/18 9:22 PM)[facility] ASXKH1777-65-65 02:22:00 Negative (05/24/18 9:22 PM)[facility] [id number] 02:22:00* Test Item Value Reference Range Interpretation Comments UA pH (test code = UA pH) 5.0 1 5.0-8.0 [facility] JPULG3199-06-10 02:22:00Negative *NA*(05/24/18 9:22 PM)[facility] SEFPK3035-85-36 02:22:00* Test Item Value Reference Range Interpretation Comments UA Spec Grav (test code = UA Spec Grav) 1.017 1 [facility] QWRUJ6661-98-21 02:22:00Yellow *NA*(05/24/18 9:22 PM) [facility] PLZEK5910-70-94 02:22:00Slight *ABN*(05/24/18 9:22 PM) [facility] UUFOD0425-04-58 02:22:00Performed (05/24/18 9:22 PM) [facility] XESCF6505-70-60 02:22:0015[facility]annURINALYSIS WITH EBXVV8786-11-39 13:04:00* Test Item Value Reference Range Interpretation Comments [...] = USPERM) /HPF NONE CT STONE PROTOCOL TEIAL5264-03-02 13:03:45CT ABDOMEN AND PELVIS WITHOUT CONTRAST, RENAL STONE PROTOCOL:Location code: [id number] HISTORY: Left flank painCOMPARISON: NoneTECHNIQUE: Helical CT [...] cyst.3. Fatty infiltration of the liver.AMYLASE AND [id number] 12:56:00* Test Item Value Reference Range Interpretation Comments AMYLASE (test code = 10A) 50 U/L 28-100 LIPASE (test code = 60A) 123 IU/L 73-393 COMPREHENSIVE METABOLIC [id number] 12:56:00* Test Item Value Reference Range Interpretation [...] code = 31A) 69 IU/L <=78 SERUM WWXVMUCARE8931-29-87 12:42:00* Test Item Value Reference Range Interpretation Comments PREG SRM (test code = PGS) NEGATIVE NEGATIVE CBC (INCLUDES AUTOMATED DIFFERENTIAL)2016-09-24 12:37:00* Test Item Value Reference Range Interpretation Comments WBC (test code = WBC) 13.7 10\\S\\3/uL 4.5-11.0 H RBC (test code = RBC) 5.12 10\\S\\6/uL 4.30-5.70 HGB (test code = HBG) 16.0 g/dL 12.0-15.5 H HCT (test code = HCT) 46.7 % 35.0-44.0 H MCV (test code = MCV) 91.2 fL 81.0-99.0 MCH (test code = MCH) 31.3 pg 27.0-31.0 H MCHC (test code = MCHC) 34.3 g/dL 32.0-36.0 RDW (test code = RDW) 12.6 % 11.5-14.5 PLT (test code = PLT) 286 10\\S\\3/uL 130-400 MPV (test code = MPV) 9.8 fL 9.4-12.4 NEUTROP # (test code = NE#) 9.5 10\\S\\3/uL 1.6-8.0 H LYMPH # (test code = LY#) 3.0 10\\S\\3/uL 1.1-3.5 MONOCYTE # (test code = MO#) 0.9 10\\S\\3/uL 0.0-1.1 EOSINOPH # (test code = EO#) 0.2 10\\S\\3/uL 0.0-0.7 BASOPHIL # (test code = BA#) 0.0 10\\S\\3/uL 0.0-0.3 IG # (test code = IG#) 0.08 10\\S\\3/uL 0.00-0.06 H NRBC # (test code = NRBC#) 0.00 10\\S\\3/uL 0.00-0.01 NEUTROPH % (test code = NE%) [...]
--- OUTSIDE RECORDS SUMMARY | 2020-04-01 09:32 | XMS REPORT | Clinical Summary ---
Author Author [facility] Address Unknown Phone Unavailable Care Team Providers Care Supervisor [employer] Name Role Phone More Soriano PCP Unavailable Allergies No Known Allergies Medications End Date Status Medication Sig Dispensed Refills Start Date Active QUEtiapine (SEROQUEL) 50 Take 50 mg by 0 MG tablet mouth nightly. 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 Blood Pressure 119/70 08/27/2019 4:19 PM [employer] PACKAGING MACHINE OPERATOR Pulse 76 08/27/2019 4:19 PM [employer] PACKAGING MACHINE OPERATOR Temperature 36.6 C (97.9 F) 08/27/2019 4:19 PM [employer] PACKAGING MACHINE OPERATOR Respiratory Rate 18 08/27/2019 4:19 PM [employer] PACKAGING MACHINE OPERATOR Oxygen Saturation 100% - Inhaled Oxygen - Concentration 08/27/2019 4:19 PM [employer] PACKAGING MACHINE OPERATOR Weight 131.5 kg (290 lb) 08/27/2019 4:19 PM [employer] PACKAGING MACHINE OPERATOR Height 160 cm (5' 3") 08/27/2019 4:19 PM [employer] PACKAGING MACHINE OPERATOR Body Mass Index 51.37 Plan of Treatment Not on file Procedures Comments Procedure Name Priority Date/Time Associated Diag nosis WET PREP STAT 08/27/2019 6:33 PM [employer] PACKAGING MACHINE OPERATOR STD PANEL - CT/GC RNA STAT 08/27/2019 6:33 PM [employer] PACKAGING MACHINE OPERATOR SCREEN, URINE STAT 08/27/2019 4:34 PM [employer] PACKAGING MACHINE OPERATOR URINALYSIS W/ REFLEX STAT 08/27/2019 URINE CULTURE 4:34 PM [employer] PACKAGING MACHINE OPERATOR URINE CULTURE STAT 08/27/2019 4:34 PM [employer] PACKAGING MACHINE OPERATOR after 04/01/2019 Results * STD Panel - CT/GC RNA (08/27/2019 6:33 PM POT[employer] CH[employer] PACKAGING MACHINE OPERATOR) C. trachomatis RNA, TMA NOT DETECTED [facility] N. gonorrhoeae RNA, TMA NOT DETECTED [facility] Comment: [facility] REFERENCE RANGE:NOT DETECTED Methodology: Photographic Equipment Technician Mediated Amplification (TMA) to detect RNA. The analytical performance characteristics of this assay, when used to test SurePath(TM) specimens have been determined by [facility]. The modifications have not been cleared or approved by the FDA. This assay has been validated pursuant to the CLIA regulations and is used for clinical purposes. For additional information, please refer to https://education.[employer]/faq/ZFU211 (This link is being provided for informational/ educational purposes only.) Specimen Vaginal Swab Narrative Performed At Performing Lab [facility] *[facility], [facility]. [address] [place] [address] Jennifer Mart MD Performing Organization Address City/State/[facility] Ph one Number [facility], [address] [place], [place] [facility] [address] * Wet prep (08/27/2019 6:33 PM POTAT[employer] CH[employer] PACKAGING MACHINE OPERATOR) WBC - wet prep Few white blood cells seen [facility] Clue cells - wet prep No clue cells seen [facility] Yeast - wet prep No budding yeast seen [facility] Trichomonas - wet prep No Trichomonas seen [facility] Bacteria - wet prep Few bacteria seen [facility] Specimen Genital Performing Organization Address City/[facility] Ph one Number [facility] [place], [place] [address] * Urinalysis w/Microscopic + Reflex to Culture (08/27/2019 4:34 PM P[employer] CH[employer] PACKAGING MACHINE OPERATOR) Color, UA Yellow [facility] Clarity, UA Clear [facility] Specific Julian, UA 1.025 1.001 - 1.035 [facility] pH, UA 5.5 5.0 - 8.0 [facility] Protein, UA Negative Negative [facility] [...] /HPF [facility] Specimen Source [facility] Specimen Urine Performing Organization Address City/[facility] Ph one Number [facility] [address] [place], [place] [phone] * Screen, urine (08/27/2019 4:34 PM POT[employer] CH[employer] PACKAGING MACHINE OPERATOR) Preg Test, Ur Negative [facility] Specimen Urine Performing Organization Address City/[facility] Ph one Number [facility] [address] [place] [address] * Urine culture (08/27/2019 4:34 PM P[employer] CH[employer] PACKAGING MACHINE OPERATOR) Result See comment [facility] Specimen Urine Narrative Performed At <10,000 col/mL Non-lactose fermenting gram negative r ods [facility] <10,000 col/mL Lactose fermenting gram negative rods LABORATORY Performing Organization Address [facility] Ph one Number [facility] [address] [place] [address] after 04/01/2019 Insurance Payer Benefit Subscriber ID Type Phone Address Plan / Group MEDICAID - MEDICAID MGD MEDICAID xxxxxxxxx [employer] id CARE COMM Contracted HEALTH CHOICE
--- NOTE | 2020-04-01 10:05 | Diagnostic Imaging Report ---
Left ankle, 3 views Left foot, 3 views INDICATION: ^pain ^[id number] ^[id number] Comparison: None available. Discussion: Multiple views of the left foot and ankle are negative for an acute displaced fracture or dislocation. Talar dome and ankle mortise are intact. Negative for tibiotalar joint effusion. Small plantar calcaneal spur is noted. Mild soft tissue swelling about the medial malleolus is noted. IMPRESSION: Negative for acute displaced fracture or dislocation of the left foot or ankle. Signed by: Galileo Gaets MD on 04/01/2020 10:01 AM
--- NOTE | 2020-04-01 10:05 | Diagnostic Imaging Report ---
Left ankle, 3 views Left foot, 3 views INDICATION: ^pain ^[id number] ^[id number] Comparison: None available. Discussion: Multiple views of the left foot and ankle are negative for an acute displaced fracture or dislocation. Talar dome and ankle mortise are intact. Negative for tibiotalar joint effusion. Small plantar calcaneal spur is noted. Mild soft tissue swelling about the medial malleolus is noted. IMPRESSION: Negative for acute displaced fracture or dislocation of the left foot or ankle. Signed by: Galileo Gates MD on 04/01/2020 10:01 AM
[2020-04-01] MEDS ORDERED: ULTRAM50 MG PO (10:39)
== END 2020-04-01 10:56 | disposition home or self-care (01) ==
LOC: ER 09:28
DX: M25.572 Pain in left ankle and joints of left foot (principal); F31.9 Bipolar disorder, unspecified
CPT/HCPCS: 99283

== ENCOUNTER 2020-07-07 00:26 | Emergency (ER) | payer OTHER ==
[~2020-07-07] VITALS: Ht 160 cm; Wt 149.7 kg
[2020-07-07] MEDS ORDERED: CEPHALEXIN 500 MG CAP PO ONE (00:45)
[2020-07-07] MEDS ORDERED: KETOROLAC TROMETHAMINE 60 MG/2 ML VIAL IM ONE (00:45)
[2020-07-07] MEDS ORDERED: CIPROFLOXACIN 500 MG TAB PO ONE (00:45)
[2020-07-07] MEDS ORDERED: DIFLUCAN200 MG PO (00:50)
[2020-07-07] MEDS ORDERED: CIPRO500 MG PO (00:50)
[2020-07-07] MEDS ORDERED: KETOROLAC TROMETHAMINE 60 MG/2 ML VIAL ONE (00:53)
[2020-07-07] MEDS ORDERED: CIPROFLOXACIN 500 MG TAB ONE (00:55)
--- OUTSIDE RECORDS SUMMARY | 2020-07-07 00:55 | XMS REPORT | Continuity of Care Document ---
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 [facility] Temperature Oral (F) 97.9 F 01/11/2019 [facility] Weight 127.273 01/08/2019 [facility] Temperature Oral (F) 98.1 F 01/08/2019 [facility] Systolic (mm Hg) 111 01/08/2019 [facility] Diastolic (mm Hg) 76 01/08/2019 [facility] Heart Rate 90 01/08/2019 [facility] Respitory Rate 18 01/08/2019 [facility] Temperature Oral (F) 97.9 F 12/19/2018 [facility] Respitory Rate 18 12/19/2018 [facility] Heart Rate 90 12/19/2018 [facility] Systolic (mm Hg) 119 12/19/2018 [facility] Diastolic (mm Hg) 60 12/19/2018 [facility] Systolic (mm Hg) 112 12/19/2018 [facility] Diastolic (mm Hg) 56 12/19/2018 [facility] Temperature Oral (F) 98.1 F 12/19/2018 [facility] Heart Rate 90 12/19/2018 [facility] Respitory Rate 20 12/19/2018 [facility] Temperature Oral (F) 98.1 F 12/19/2018 [facility] Systolic (mm Hg) 131 12/19/2018 [facility] Diastolic (mm Hg) 84 12/19/2018 [facility] Heart Rate 98 12/19/2018 [facility] Respitory Rate 22 12/19/2018 [facility] Weight 137.273 11/28/2018 [facility] BMI Calculated 53.61 11/28/2018 [facility] Height 160.02 cm 11/28/2018 [facility] Systolic (mm Hg) 131 11/28/2018 [facility] Diastolic (mm Hg) 91 11/28/2018 [facility] Temperature Oral (F) 98.3 F 11/28/2018 [facility] Heart Rate 83 11/28/2018 [facility] Heart Rate 91 07/20/2018 [facility] Temperature Oral (F) 98.4 F 07/20/2018 [facility] Systolic (mm Hg) 104 07/20/2018 [facility] Diastolic (mm Hg) 86 07/20/2018 [facility] Respitory Rate 18 07/20/2018 [facility] Weight 128.636 07/19/2018 [facility] Temperature Oral (F) 98.1 F 07/19/2018 [facility] Systolic (mm Hg) 114 07/19/2018 [facility] Diastolic (mm Hg) 84 07/19/2018 [facility] Respitory Rate 16 07/19/2018 [facility] Heart Rate 112 07/19/2018 [facility] Systolic (mm Hg) 109 06/23/2018 [facility] Diastolic (mm Hg) 78 06/23/2018 [facility] Respitory Rate 18 06/23/2018 [facility] Heart Rate 83 06/23/2018 [facility] Temperature Oral (F) 97.4 F 06/23/2018 [facility] Respitory Rate 18 06/23/2018 [facility] Systolic (mm Hg) 99 06/23/2018 [facility] Diastolic (mm Hg) 65 06/23/2018 [facility] Temperature Oral (F) 97.4 F 06/23/2018 [facility] Heart Rate 80 06/23/2018 [facility] Temperature Oral (F) 97.6 F 06/22/2018 [facility] Systolic (mm Hg) 109 06/22/2018 [facility] Diastolic (mm Hg) 75 06/22/2018 [facility] Heart Rate 86 06/22/2018 [facility] Respitory Rate 16 06/22/2018 [facility] Height 162.56 cm 06/21/2018 [facility] Weight 130.909 06/21/2018 [facility] BMI Calculated 49.54 06/21/2018 [facility] Height 162.56 cm 06/21/2018 [facility] BMI Calculated 49.54 06/21/2018 [facility] Weight 130.909 06/21/2018 [facility] Weight 130.909 06/21/2018 [facility] Respitory Rate 18 05/25/2018 [facility] Systolic (mm Hg) 118 05/25/2018 [facility] Diastolic (mm Hg) 57 05/25/2018 [facility] Height 162.56 cm 05/25/2018 [facility] Weight 131 05/25/2018 [facility] BMI Calculated 49.57 05/25/2018 [facility] Temperature Oral (F) 98.2 F 05/25/2018 [facility] Respitory Rate 20 05/25/2018 [facility] Systolic (mm Hg) 111 05/25/2018 [facility] Diastolic (mm Hg) 71 05/25/2018 [facility] Heart Rate 125 05/25/2018 [facility] Weight 129.545 05/25/2018 [facility] Respitory Rate 19 05/25/2018 [facility] Heart Rate 121 05/25/2018 [facility] Systolic (mm Hg) 116 05/25/2018 [facility] Diastolic (mm Hg) 70 05/25/2018 [facility] Temperature Oral (F) 98.5 F 05/25/2018 [facility] Temperature Oral (F) 97.6 F 11/22/2017 [facility] Systolic (mm Hg) 101 11/22/2017 [facility] Diastolic (mm Hg) 65 11/22/2017 [facility] Heart Rate 90 11/22/2017 [facility] Respitory Rate 18 11/22/2017 [facility] Systolic (mm Hg) 129 08/09/2017 [facility] Diastolic (mm Hg) 78 08/09/2017 [facility] Respitory Rate 18 08/09/2017 [facility] Heart Rate 97 08/09/2017 [facility] Temperature Oral (F) 98.5 F 08/09/2017 [facility] Weight 127.273 08/09/2017 [facility] Systolic (mm Hg) 136 08/09/2017 [facility] Diastolic (mm Hg) 83 08/09/2017 [facility] Respitory Rate 18 08/09/2017 [facility] Temperature Oral (F) 98.4 F 08/09/2017 [facility] Heart Rate 107 08/09/2017 [facility] Encounters Location Location Details Encounter Type Encounter Number Reason For Visit Attending Provider ADM Date DC Date Status Source Emergency [id number] Esau Landon 08/07/2017 08/07/2017 [facility] Emergency [id number] Shaun Swanson 08/09/2017 08/09/2017 [facility] Emergency [id number] Edin Arthur 11/22/2017 11/22/2017 [facility] Emergency [id number] Torri Vernon 05/25/2018 05/25/2018 [facility] Inpatient [id number] Peace Nwegbo 06/21/2018 06/23/2018 [facility] Emergency [id number] Cherogedin Madison 07/19/2018 07/20/2018 [facility] Outpatient [id number] Jaylen Newberry 11/28/2018 Active [facility] Outpatient [id number] Ying Turcios 11/28/2018 11/29/2018 [facility] Emergency [id number] Cherogedin Eduvie 12/19/2018 12/19/2018 [facility] Emergency [id number] Matt Bermudez 01/08/2019 01/08/2019 [facility] Outpatient [id number] [facility] Karolina 01/11/2019 [facility] Outpatient [id number] [facility] Karolina 01/11/2019 01/12/2019 [facility] Ambulatory Pre-Reg [id number] Malcolm Flores 01/23/2019 01/23/2019 [facility] Outpatient [id number] [facility] Karolina 01/25/2019 Active [facility] [place] Emergency [id number] Alessandro Wetzel 05/22/2019 05/22/2019 [place] Outpatient [id number] Vineet Bingham 05/26/2019 Active [facility] Outpatient [id number] 05/26/2019 05/27/2019 [facility] Family Medicine Gold Pod Phone Message [id number] 07/05/2019 07/07/2019 [facility] Outpatient [id number] Sheryl Maurice 10/06/2019 [facility] [place] Outpatient [id number] Sheryl Maurice 10/06/2019 10/07/2019 [facility] Family Medicine Purple Pod Phone Message [id number] 06/14/2020 06/16/2020 [facility] Purple Pod Phone Message [id number] 06/17/2020 06/19/2020 [facility] Outpatient [id number] Umm Friscia 06/18/2020 Active [facility] Outpatient [id number] Umm Friscia 06/18/2020 06/19/2020 [facility] Outpatient [id number] Umm Friscia 07/17/2020 Active [facility] Outpatient [id number] Umm Friscia 07/17/2020 Active [facility] Outpatient [id number] Tram Cortes 07/17/2020 Active [facility] Procedures Procedure Code Date Perfomer Comments Source Unremarkable [id number] [facility] [place] Assessment and Plan Assessment and Plan Date [...] Dx: vag del. Esau Venegas MD, PhD Horse Identifier Attending Extracted from:Title: Clinical Document Author: Esau [...] for pain management. Esau Venegas MD, PhD Horse Identifier Attending Extracted from:Title: History and Physical Author: [...] She endorses good movement. PNC: [facility] since . She is complicated by hyperemesis gravidarum this [...] be induced at 38 weeks b y [facility] [[email or web address]], but is unsusre of indication. Will actively manage. 2. GBS positive- PCN for GBS PPX. 3. N/V- will obtain CMP. Zofran PRN. 4. LSIL pap- colposcopy PP, per [facility] gu idelines. Follow up with [facility] [[email or web address]] outpatient. 5. Dispo- To L&D for pitocin and PCN. 06/23/2018 [facility] Plan of Care No Data Provided for [...] Cessation Counseling No entered on: 01/23/19 11/28/2018 [facility] Social History TypeResponse Alcohol Current, Frequency: 1-2 times per month. Employment/School Status: Unemployed. Exercise Exercise frequency: Daily. Sexual Sexually active: Yes. Substance Abuse Use: None. Smoking Status Never smoker; Type: Cigarettes; Concerns about tobacco use in household: No; Exposure to Tobacco Smoke None; Cigarette Smoking Last 365 Days No; Reg Smoking Cessation Counseling No entered on: 06/18/20 11/28/2018 [facility] Social History TypeResponse Alcohol Current, Frequency: 1-2 times per month. Employment/School Status: Unemployed. Exercise Exercise frequency: Daily. Sexual Sexually active: Yes. Substance Abuse Use: None. Smoking Status Never smoker; Type: Cigarettes; Concerns about tobacco use in household: No; Exposure to Tobacco Smoke None; Cigarette Smoking Last 365 Days No; Reg Smoking Cessation Counseling No entered on: 05/22/19 11/28/2018 [facility] Social History TypeResponse Smoking Status Never smoker; Type: Cigarettes; Concerns about tobacco use in household: No; Exposure to Tobacco Smoke None; Cigarette Smoking Last 365 Days No; Reg Smoking Cessation Counseling No entered on: 11/22/17 11/22/2017 [facility] Social History TypeResponse Smoking Status Never smoker; Exposure to Tobacco Smoke None; Cigarette Smoking Last 365 Days No; Reg Smoking Cessation Counseling No 08/09/2017 [facility] Family History No Data Provided for This Section Advance Directives No Data Provided for This Section Functional Status No Data Provided for This Section
--- OUTSIDE RECORDS SUMMARY | 2020-07-07 00:55 | XMS REPORT | Clinical Summary ---
Author Author [facility] Address Unknown Phone Unavailable Care Team Providers Care Boiler Washer Name Role Phone More Soriano PCP Unavailable Allergies No Known Allergies Medications End Date Status Medication Sig Dispensed Refills Start Date Active QUEtiapine (SEROQUEL) 50 Take 50 mg by 0 MG tablet mouth nightly. 08/27/2019 Discontinued (Error) ALPRAZolam (XANAX) 1 MG Take 5 mg by 0 tablet mouth every night as needed for Anxiety. 09/01/2019 sulfamethoxazole-trimetho Take 1 tablet 10 tablet 0 prim (BACTRIM DS) 800-160 (160 mg of 0 mg per tablet trimethoprim total) by mouth 2 (two) times daily for 5 days smx-tmp DS (BACTRIM) 800-160 mg tabs (1tab q12 D10). Active Problems Not on file Encounters Care Team Description Date Type Specialty HoltHector lindo MD Acute cystitis without hematuria (Primar y Dx); Dysuria 08/27/2019 Emergency Emergency Medicine after 07/07/2019 Social History Date Tobacco Use Types Packs/Day Years Used Never Smoker Smokeless Tobacco: Never Used Drinks/Week oz/Week Comments Alcohol Use socially Yes Sex Assigned at Date Recorded Not on file Last Filed Vital Signs Reading Time Taken Comments Vital Sign 119/70 08/27/2019 4:19 PM [employer] Blood Pressure 76 08/27/2019 4:19 PM [employer] Pulse 36.6 C (97.9 F) 08/27/2019 4:19 PM [employer] Temperature 18 08/27/2019 4:19 PM [employer] Respiratory Rate 100% 08/27/2019 4:19 PM [employer] Oxygen Saturation - - Inhaled Oxygen Concentration 131.5 kg (290 lb) 08/27/2019 4:19 PM [employer] Weight 160 cm (5' 3") 08/27/2019 4:19 PM [employer] Height 51.37 08/27/2019 4:19 PM [employer] Body Mass Index Plan of Treatment Health Maintenance Due Date Last Done Comments LIPID PANEL 2009 INFLUENZA VACCINE (#1) 2020 11/11/2017 CERVICAL CANCER SCREENING 01/18/2022 01/18/2019 PAP ONLY (Age 21-65) Procedures Comments Procedure Name Priority Date/Time Associated Diag nosis WET PREP STAT 08/27/2019 6:33 PM [employer] STD PANEL - CT/GC RNA STAT 08/27/2019 6:33 PM [employer] SCREEN, URINE STAT 08/27/2019 4:34 PM [employer] URINALYSIS W/ REFLEX STAT 08/27/2019 URINE CULTURE 4:34 PM [employer] URINE CULTURE STAT 08/27/2019 4:34 PM [employer] after 07/07/2019 Results * STD Panel - CT/GC RNA (08/27/2019 6:33 PM [employer]ANKF[employer] INSPECTOR) C. trachomatis NOT DETECTED [facility], [facility] N. gonorrhoeae NOT DETECTED [facility] RNA, [facility] Comment: DIAGNOSTIC REFERENCE RANGE: NOT INCORPORATED DETECTED Methodology: Client Support Coordinator Mediated Amplification (TMA) to detect RNA. The analytical performance characteristics of this assay, when used to test SurePath(TM) specimens have been determined by [facility]. The modifications have not been cleared or approved by the FDA. This assay has been validated pursuant to the CLIA regulations and is used for clinical purposes. For additional information, please refer to https://[email or web address].Glamour.com.ng/faq/BHX779 (This link is being provided for informational/ educational purposes only.) Specimen Vaginal Swab - Endocervical structure (body structure) Narrative Performed At Performing Lab [facility] [address] [facility] [place] [address] Jennifer Mart MD Performing Organization Address City/State/Zipcode Ph one Number [facility] [place] [place] [facility] [address] [facility] [address] * Wet prep (08/27/2019 6:33 PM FRANKFURTER INSPECTOR) WBC - wet prep Few white blood cells seen [facility] Clue cells - No clue cells seen [facility] Yeast - wet No budding yeast seen [facility] Trichomonas - No Trichomonas seen [facility] wet prep [facility] Bacteria - wet Few bacteria seen [facility] prep [facility] Specimen Genital - Cervix uteri structure (body structure) Performing Organization Address [facility] one [facility] [address] [place] [phone] * Urinalysis w/Microscopic + Reflex to Culture (08/27/2019 4:34 PM [facility] INSPECTOR) Color, UA Yellow [facility] Clarity, UA Clear [facility] Specific 1.025 1.001 - 1.035 [facility] pH, UA 5.5 5.0 - 8.0 [facility] Protein, UA Negative Negative [facility] Glucose, UA Negative Negative [facility] Ketones, UA Negative Negative [facility] Bilirubin, UA Negative Negative [facility] Blood, UA Small (A) Negative [facility] Nitrite, UA Negative Negative [facility] Leukocytes, UA Moderate (A) Negative [facility] Urobilinogen, 0.2 0.2 - 1.0 mg/dL [facility] Bacteria, UA Few [facility] RBC, UA <5 /HPF [facility] WBC, UA 10-20 /HPF [facility] SQUAMOUS 5-10 /HPF [facility] EPITHELIAL [facility] Specimen Source [facility] Specimen Urine - Urine specimen collection, clean catch (procedure) Performing Organization Address [facility] one [facility] [address] [place] [phone] * Screen, urine (08/27/2019 4:34 PM [facility] INSPECTOR) Preg Test, Ur Negative [facility] Specimen Urine Performing Organization Address [facility] one [facility] [address] [place] [phone] * Urine culture (08/27/2019 4:34 PM FRANKFUR[employer] INSPECTOR) Result See comment [facility] Specimen Urine - Urine specimen collection, clean catch (procedure) Narrative Performed At <10,000 col/mL Non-lactose fermenting gram negative r ods [facility] <10,000 col/mL Lactose fermenting gram negative rods LABORATORY Performing Organization Address City/State/Zipcode Ph one Number [facility] [address] [place] [address] after 07/07/2019 Insurance Type Payer Benefit Subscriber ID Effective Phone Address Plan / Dates Group Medicaid Contracted MEDICAID - MEDICAID MGD MEDICAID [id number] [id number] CARE COMM rustent HEALTH CHOICE
--- OUTSIDE RECORDS SUMMARY | 2020-07-07 00:55 | XMS REPORT | Clinical Summary ---
Author Author [facility] Organization [facility] Address Unknown Phone Unavailable Care Team Providers Care Baggage Screener Name Role Phone Ana Maria Ferreira PCP Allergies No Known Active Allergies Medications End Date Status Medication Sig Dispensed Refills Start Date Active ALPRAZolam (XANAX) 2 MG Take 2 mg by 0 tablet mouth 2 (two) times a day. Active QUEtiapine (SEROquel) 50 Take 50 mg by 0 MG tablet mouth 2 (two) times a day. Active Problems Problem Noted Date Bipolar 2 disorder 05/22/2019 Noncompliance 06/08/2018 Medical History Medical History Date Comments Bipolar 2 disorder (HCC) Morbid obesity (HCC) Social History Date Tobacco Use Types Packs/Day Years Used Never Smoker Smokeless Tobacco: Never Used Drinks/Week oz/Week Comments Alcohol Use occasional Yes Sex Assigned at Date Recorded Not on file Last Filed Vital Signs Not on file Plan of Treatment Not on file Results Not on fileafter 07/07/2019 Insurance Type Payer Benefit Subscriber ID Effective Phone Address Plan / Dates Group [employer] [facility] [id number] [id number] [facility] [place] [employer] [facility] Advance Directives For more information, please contact: [phone] Patient Skills Trainer Explanation Type Date Recorded Advance Directives, Living Will and Medical Power of Locksmith
--- NOTE | 2020-07-07 00:56 | Emergency Department Note ---
History of Present Illnes History of Present Illness Chief Complaint: Genitourinary History of Present Illness This is a 30 year old female here with 2-3 day history of pressure over her urinary bladder, dysuria, urgency, and vaginal irritation with white discharge. No N/V no F/C no flank pain Arrival Mode: Car Onset (how long ago): day(s) (3) Location: suprapubic Quality: ache Radiation: Reports non-radiation Severity: moderate Onset quality: gradual Duration (how long): day(s) (2) Timing of current episode: constant Progression: worsening Chronicity: new Relieving factors: none Exacerbating factors: none Associated symptoms: Denies fever/chills, Denies headaches, Denies loss of appetite, Denies nausea/vomiting, Denies shortness of breath Past Medical/Family History Physician Review I have reviewed the patient's past medical and family history. Any updates have been documented here. Past Medical History Past Medical History: None Other Medical History: BIPOLAR Past Surgical History: None Other Last Tetanus: UTD Review of Systems Review of Systems Constitutional: Reports no symptoms EENTM: Reports no symptoms Cardiovascular: Reports no symptoms Respiratory: Reports no symptoms Gastrointestinal: Reports no symptoms Genitourinary: Reports as per HPI Musculoskeletal: Reports no symptoms Integumentary: Reports no symptoms Neurological: Reports no symptoms Psychological: Reports no symptoms Endocrine: Reports no symptoms Hematological/Lymphatic: Reports no symptoms Physical Exam Related Data Allergies: Coded Allergies: No Known Allergies (Unverified , 05/19/19) Vital signs reviewed: Yes Physical Exam CONSTITUTIONAL Constitutional: Present well-developed, Present well-nourished, Present other (anxious ) HENT HENT: Present normocephalic, Present atraumatic, Present oropharynx clear/moist, Present nose normal HENT L/R: Present left ext ear normal, Present right ext ear normal EYES Eyes: Reports PERRL, Reports conjunctivae normal NECK Neck: Present ROM normal PULMONARY Pulmonary: Present effort normal, Present breath sounds normal CARDIOVASCULAR Cardiovascular: Present regular rhythm, Present heart sounds normal, Present capillary refill normal, Present tachycardia GASTROINTESTINAL Abdominal: Present soft, Present nontender, Present bowel sounds normal GENITOURINARY Genitourinary: Present vaginal discharge (white, thin), Present other (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 RN 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, erythematous vaginal wall with tissue maceration between her labia) SKIN Skin: Present warm, Present dry MUSCULOSKELETAL Musculoskeletal: Present ROM normal NEUROLOGICAL Neurological: Present alert, Present oriented x 3, Present no gross motor or sensory deficits PSYCHOLOGICAL Psychological: Present mood/affect normal, Present judgement normal Results Laboratory Laboratory Laboratory Tests Test 07/07/20 00:40 Assessment & Plan Medical Decision Making MDM She is a 30-year-old female with a positive urinary tract infection on her urinalysis, clinically also with vaginitis likely secondary to Seema. Patient is not hypoglycemic today. We will treat her for urine tract infection and also for Seema. No concern for pyelonephritis, no CVAT. Patient also does not appear to toxic. No cephalosporins available at due to PD, we'll prescribe Cipro with strict return precautions. Assessment & Plan Final Impression: (1) Vaginal candidiasis (2) Dysuria (3) UTI (urinary tract infection) Depart Disposition: HOME, SELF-prison Meds Active Scripts Fluconazole (DIFLUCAN) 200 Mg Tablet, 1 TAB PO ONCE, #1 TAB Prov:ERENDIRA DYE MD 07/07/20 Ciprofloxacin Hcl (CIPRO) 500 Mg Tablet, 500 MG PO Q12H for 7 Days, #14 TAB Prov:ERENDIRA DYE MD 07/07/20 Tramadol Hcl (ULTRAM) 50 Mg Tablet, 50 MG PO Q6H PRN for pain, #5 TAB Prov:ERENDIRA DYE MD 04/01/20 Albuterol Sulfate (PROVENTIL HFA) 6.7 Gm Hfa.aer.ad, 1 INH INH Q4HR PRN for SHORTNESS OF BREATH, #1 INH 3 Refills Prov:LAURIE DEMPSEY MD 02/05/20 Diphenhydra/Phenyleph/Acetamin (THERAFLU COLD AND COUGH POWDER) 1 Each Powd.pack, 1 PACKET PO Q6H PRN for fever and or pain, #12 Prov:LAURIE DEMPSEY MD 02/05/20 Azithromycin (Z-GINA) 250 Mg Tablet, 1 PKG PO DIRECTED, #1 PKG 0 Refills Prov:LAURIE DEMPSEY MD 02/05/20 Dexamethasone (DEXAMETHASONE) 6 Mg Tablet, 1 TAB PO DAILY, #7 Prov:LAURIE DEMPSEY MD 02/05/20 Acetaminophen With Codeine (TYLENOL WITH CODEINE #3 TABLET) 1 Each Tablet, 1 TAB PO Q6H PRN for pain, #6 TAB 0 Refills Do NOT take and drive or operate machinery Prov:BEBE MERAZ MD 12/24/19 Fluconazole (DIFLUCAN) 150 Mg Tablet, 1 TAB PO DAILY for yeast infection for 3 Days, #3 TAB 0 Refills Prov:BEBE MERAZ MD 12/24/19 Sulfamethoxazole/Trimethoprim (BACTRIM DS TABLET) 1 Each Tablet, 1 TAB PO BID for infection. for 10 Days, #20 TAB 0 Refills Prov:BEBE MERAZ MD 12/24/19 Acetaminophen With Codeine (TYLENOL WITH CODEINE #3 TABLET) 1 Each Tablet, 1-2 TAB PO Q6H PRN for pain, #10 TAB 0 Refills DO NOT take and drive or operate machinery. Prov:BEBE MERAZ MD 10/31/19 Penicillin V Potassium* (PENCILLIN V POTASSIUM*) 250 Mg Tab, 500 MG PO Q8H for infection for 10 Days, #30 TAB 0 Refills Take ALL antibiotics Prov:BEBE MERAZ MD 10/31/19 Ondansetron Hcl* (ZOFRAN*) 4 Mg Tablet, 4 MG SL Q6H PRN for NAUSEA, #14 MG 0 Refills Prov:MIK JONES MD 10/19/19 Benzonatate (TESSALON PERLE) 100 Mg Capsule, 100 MG PO TID for COUGH, #15 Prov:MIK JONES MD 10/19/19 Amoxicillin/Potassium Clav (AUGMENTIN 875-125 TABLET) 1 Each Tablet, 875 MG PO BID, #14 TAB Prov:MIK JONES MD 10/19/19 Oseltamivir Phosphate (TAMIFLU) 75 Mg Cap, 75 MG PO BID, #10 CAP Prov:MIK JONES MD 10/19/19 Medications in the ED Ketorolac Tromethamine 60 mg ONCE ONCE IM ; Start 07/07/20 at 00:45; Stop 07/07/20 at 00:46; Status DC Cephalexin 500 mg ONCE ONCE PO ; Start 07/07/20 at 00:45; Stop 07/07/20 at 00:49; Status DC Ketorolac Tromethamine 60 mg STK-MED ONCE .ROUTE ; Start 11/29/20 at 00:53; Stop 07/07/20 at 00:46; Status DC Ciprofloxacin 500 mg ONCE ONCE PO ; Start 07/07/20 at 00:45; Stop 07/07/20 at 00:46; Status ERENDIRA CHOE MD Jul 07, 2020 00:56
--- OUTSIDE RECORDS SUMMARY | 2020-07-07 00:56 | XMS REPORT | Continuity of Care Document ---
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 [place] BMI Calculated 2019-05-22 12:48:00 [facility] Weight 2019-05-22 12:48:00 [facility] [place] BMI Calculated 2019-01-11 12:11:00 [facility] Height 2019-01-11 12:11:00 160.02 cm [facility] Weight 2019-01-11 12:11:00 [facility] [place] Systolic (mm Hg) 2019-01-11 12:11:00 [facility] [place] Diastolic (mm Hg) 2019-01-11 12:11:00 [facility] [place] Heart Rate 2019-01-11 12:11:00 [facility] [place] Temperature Oral (F) 2019-01-11 12:11:00 97.9 F [facility] Weight 2019-01-08 08:31:00 [facility] [place] Temperature Oral (F) 2019-01-08 08:31:00 98.1 F [facility] Systolic (mm Hg) 2019-01-08 08:31:00 [facility] [place] Diastolic (mm Hg) 2019-01-08 08:31:00 [facility] [place] Heart Rate 2019-01-08 08:31:00 [facility] Respitory Rate 2019-01-08 08:31:00 [facility] [place] Temperature Oral (F) 2018-12-19 14:34:00 97.9 F [facility] [place] Respitory Rate 2018-12-19 14:34:00 [facility] [place] Heart Rate 2018-12-19 14:34:00 [facility] [place] Systolic (mm Hg) 2018-12-19 14:34:00 [facility] [facility] [place] Diastolic (mm Hg) 2018-12-19 14:34:00 [facility] [place] Systolic (mm Hg) 2018-12-19 12:21:00 [facility] [place] Diastolic (mm Hg) 2018-12-19 12:21:00 [facility] [place] Temperature Oral (F) 2018-12-19 12:21:00 98.1 F [facility] [place] Heart Rate 2018-12-19 12:21:00 [facility] Respitory Rate 2018-12-19 12:21:00 [facility] [place] Temperature Oral (F) 2018-12-19 11:19:00 98.1 F [facility] Systolic (mm Hg) 2018-12-19 11:19:00 [facility] [place] Diastolic (mm Hg) 2018-12-19 11:19:00 [facility] [place] Heart Rate 2018-12-19 11:19:00 [facility] Respitory Rate 2018-12-19 11:19:00 [facility] [place] Weight 2018-11-28 19:15:00 [facility] [place] BMI Calculated 2018-11-28 19:15:00 [facility] [place] Height 2018-11-28 19:15:00 160.02 cm [facility] Systolic (mm Hg) 2018-11-28 19:15:00 [facility] [place] Diastolic (mm Hg) 2018-11-28 19:15:00 [facility] [place] Temperature Oral (F) 2018-11-28 19:15:00 98.3 F [facility] Heart Rate 2018-11-28 19:15:00 [facility] [place] Heart Rate 2018-07-20 02:22:00 [facility] Temperature Oral (F) 2018-07-20 02:22:00 98.4 F [facility] [place] Systolic (mm Hg) 2018-07-20 02:22:00 [facility] [place] Diastolic (mm Hg) 2018-07-20 02:22:00 [facility] [place] Respitory Rate 2018-07-20 02:22:00 [facility] [place] Weight 2018-07-19 21:04:00 [facility] [place] Temperature Oral (F) 2018-07-19 21:04:00 98.1 F [facility] [place] Systolic (mm Hg) 2018-07-19 21:04:00 [facility] [place] Diastolic (mm Hg) 2018-07-19 21:04:00 [facility] [place] Respitory Rate 2018-07-19 21:04:00 [facility] [place] Heart Rate 2018-07-19 21:04:00 [facility] Systolic (mm Hg) 2018-06-23 14:28:00 [facility] [place] Diastolic (mm Hg) 2018-06-23 14:28:00 [facility] [place] Respitory Rate 2018-06-23 14:28:00 [facility] [place] Heart Rate 2018-06-23 14:28:00 [facility] [place] Temperature Oral (F) 2018-06-23 14:28:00 97.4 F [facility] [place] Respitory Rate 2018-06-23 06:12:00 [facility] [place] Systolic (mm Hg) 2018-06-23 06:12:00 [facility] [place] Diastolic (mm Hg) 2018-06-23 06:12:00 [facility] [place] Temperature Oral (F) 2018-06-23 06:12:00 97.4 F [facility] Heart Rate 2018-06-23 06:12:00 [facility] [place] Temperature Oral (F) 2018-06-22 23:08:00 97.6 F [facility] [place] Systolic (mm Hg) 2018-06-22 23:08:00 [facility] [place] Diastolic (mm Hg) 2018-06-22 23:08:00 [facility] [place] Heart Rate 2018-06-22 23:08:00 [facility] [place] Respitory Rate 2018-06-22 23:08:00 [facility] [place] Height 2018-06-21 02:26:00 162.56 cm [facility] [place] Weight 2018-06-21 02:26:00 [facility] BMI Calculated 2018-06-21 02:26:00 [facility] [place] Height 2018-06-21 01:26:00 162.56 cm [facility] [place] BMI Calculated 2018-06-21 01:26:00 [facility] [place] Weight 2018-06-21 01:26:00 [facility] Weight 2018-06-21 00:59:00 [facility] [place] Respitory Rate 2018-05-25 03:05:00 [facility] [place] Systolic (mm Hg) 2018-05-25 03:05:00 [facility] [place] Diastolic (mm Hg) 2018-05-25 03:05:00 [facility] [place] Height 2018-05-25 02:00:00 162.56 cm [facility] Weight 2018-05-25 02:00:00 [facility] [place] BMI Calculated 2018-05-25 02:00:00 [facility] [place] Temperature Oral (F) 2018-05-25 02:00:00 98.2 F [facility] Respitory Rate 2018-05-25 02:00:00 [facility] [place] Systolic (mm Hg) 2018-05-25 02:00:00 [facility] [place] Diastolic (mm Hg) 2018-05-25 02:00:00 [facility] [place] Heart Rate 2018-05-25 02:00:00 [facility] [place] Weight 2018-05-25 01:28:00 [facility] [place] Respitory Rate 2018-05-25 01:28:00 [facility] [place] Heart Rate 2018-05-25 01:28:00 [facility] [place] Systolic (mm Hg) 2018-05-25 01:28:00 [facility] [place] Diastolic (mm Hg) 2018-05-25 01:28:00 [facility] [place] Temperature Oral (F) 2018-05-25 01:28:00 98.5 F [facility] [place] Temperature Oral (F) 2017-11-22 10:53:00 97.6 F [facility] Systolic (mm Hg) 2017-11-22 10:53:00 [facility] [place] Diastolic (mm Hg) 2017-11-22 10:53:00 [facility] [place] Heart Rate 2017-11-22 10:53:00 [facility] Respitory Rate 2017-11-22 10:53:00 [facility] [place] Systolic (mm Hg) 2017-08-09 05:35:00 [place] [facility] [place] Diastolic (mm Hg) 2017-08-09 05:35:00 [facility] [place] Respitory Rate 2017-08-09 05:35:00 [facility] [place] Heart Rate 2017-08-09 05:35:00 [facility] Temperature Oral (F) 2017-08-09 05:35:00 98.5 F [facility] Weight 2017-08-09 03:39:00 [facility] Systolic (mm Hg) 2017-08-09 03:39:00 [place] Diastolic (mm Hg) 2017-08-09 03:39:00 [facility] [place] Respitory Rate 2017-08-09 03:39:00 [facility] [place] Temperature Oral (F) 2017-08-09 03:39:00 98.4 F [facility] Heart Rate 2017-08-09 03:39:00 [facility] [place] Procedures Procedure Date / Time Performed Performing Clinician [facility] e STD PANEL - CT/GC RNA 2019-08-27 18:33:00 [facility] WET PREP 2019-08-27 18:33:00 [facility] URINE CULTURE 2019-08-27 16:34:00 [facility] URINALYSIS W/ REFLEX URINE CULTURE 2019-08-27 16:34:00 [facility] SCREEN, URINE 2019-08-27 16:34:00 Hector Smith [facility] Plan of Care Planned Activity Planned Date Details Comments Source Future Scheduled Test 2022-01-18 00:00:00 Screening for shirin gnant neoplasm of cervix (procedure) [code = 351098586] [facility] [place] Future Scheduled Test 2020-04-09 00:00:00 INFLUENZA VACCINE (#1) [code = INFLUENZA VACCINE (#1)] [facility] Future Scheduled Test 2009 00:00:00 Lipid panel (proce dure) [code = 67787910] [facility] Instructions Sprains - Ankle [facility] Encounters Start Date/Time End Date/Time Encounter Type Ad[facility] Encounter ID Source 2018-06-20 19:37:00 Inpatient E [facility] [id number] [facility] 2020-06-18 15:30:00 2020-06-18 23:59:59 Outpatient Umm Cervantes [facility] [id number] 2020-06-17 15:18:32 2020-06-18 23:59:59 Outpatient [facility] [id number] 2020-06-14 14:51:30 2020-06-15 23:59:59 Outpatient [facility] [id number] 2020-04-01 09:28:00 2020-04-01 09:28:00 Registered Emergency Room 1 ERENDIRA DYE [facility] [id number] I [facility] 2020-02-05 08:39:00 2020-02-05 08:47:00 Departed Emergency Room [facility] [id number] [facility] 2019-12-28 00:00:00 2019-12-28 00:00:00 Telephone Lory Duran [facility] [id number] 2019-12-27 00:00:2019-12-27 00:00:00 Telephone Misti Johnson [facility] [id number] 2019-12-24 13:46:00 2019-12-24 15:10:00 Departed Emergency Room [facility] [id number] [facility] 2019-10-31 12:42:00 2019-10-31 13:30:00 Departed Emergency Room [facility] [id number] [facility] 2019-10-19 10:55:00 2019-10-19 12:19:00 Departed Emergency Room [facility] [id number] [facility] 2019-10-06 15:10:00 2019-10-06 23:59:59 Outpatient Gold Richards [facility] [place] [id number] 2019-07-05 13:47:09 2019-07-06 23:59:59 Outpatient [facility] [id number] 2019-05-26 09:20:00 2019-05-26 23:59:59 Outpatient [facility] [id number] 2019-05-22 07:40:25 2019-05-22 08:06:00 Outpatient Alessandro Wetzel [facility] [place] [id number] 2019-05-22 07:40:00 2019-05-22 07:40:00 Emergency E [facility] [id number] 2019-05-19 07:09:00 2019-05-19 07:58:00 Departed Emergency Room [facility] [id number] [facility] 2019-01-23 14:00:00 2019-01-23 14:00:00 Outpatient Radhika Flores [facility] [id number] 2019-01-11 15:30:00 2019-01-11 23:59:59 Outpatient Lucas Turcios [facility] [id number] 2019-01-08 03:18:56 2019-01-08 06:08:00 Outpatient Lavon Matt white [facility] [id number] 2019-01-08 03:18:00 2019-01-08 03:18:00 Emergency [place] [id number] [facility] 2018-12-19 06:15:10 2018-12-19 09:35:00 Outpatient Katerin Madison Aimee [facility] [id number] 2018-12-19 06:15:00 2018-12-19 06:15:00 Emergency [place] [id number] [facility] 2018-11-28 14:00:00 2018-11-28 23:59:59 Outpatient Lucas Turcios [facility] [id number] 2018-07-19 14:41:00 2018-07-19 20:29:00 Outpatient Katerin Madison [facility] [id number] 2018-07-19 14:41:00 2018-07-19 14:41:00 Emergency [place] [id number] [facility] 2018-06-20 18:53:00 2018-06-23 15:54:00 Outpatient Dharmesh Esqueda [facility] [id number] 2018-05-24 20:23:00 2018-05-24 22:51:00 Outpatient Best Vernon [facility] [id number] 2018-05-24 20:23:00 2018-05-24 20:23:00 Emergency [place] [id number] [facility] 2017-11-22 05:52:00 2017-11-22 09:27:00 Outpatient Nicki Arthur or Hernando [facility] [id number] 2017-08-08 21:15:00 2017-08-08 23:37:00 Outpatient Shaun Lama [facility] [id number] 2017-08-07 12:46:00 2017-08-07 13:47:00 Outpatient Esau Landon [facility] [id number] Results Test Description Test Time Test Comments Results Result Comments Source ANKLE 3+ VIEWS LEFT 2020-04-01 09:59:00 [place] [address] Patient Name: BEBE BRUNNER MR #: [id number] : 1990 Age/Sex: 30/F Req #: [id number] Adm Physician: Ordered by: ERENDIRA DYE MD Report #: [id number] Location: ER Room/Bed: Procedure: [id number] DX/ANKLE 3+ VIEWS LEFT Exam Date: 04/01/20 Exam Time: 909 REPORT STATUS: Signed Left ankle, 3 views Left foot, 3 views INDICATION: pain 20200401 Comparison: None available. Discussion: Multiple views of the left foot and ankle are negative for an acute displaced fracture or dislocation. Talar dome and ankle mortise are intact. Negative for tibiotalar joint effusion. Small plantar calcaneal spur is noted. Mild soft tissue swelling about the medial malleolus is noted. IMPRESSION: Negative for acute displaced fracture or dislocation of the left foot or ankle. Signed by: Preet Gates MD on 04/01/2020 10:01 AM Dictated By: PREET GATES MD 1001 Transcribed By: KELLEY on 04/01/20 1001 COPY TO: ERENDIRA DYE MD FOOT LEFT COMPLETE 2020-04-01 09:59:00 [place] [address] Patient Name: BEBE BRUNNER MR #: [id number] : 1990 Age/Sex: 30/F Req #: [id number] Adm Physician: Ordered by: ERENDIRA DYE MD Report #: [id number] Location: ER Room/Bed: Procedure: [id number] DX/FOOT LEFT COMPLETE Exam Date: 04/01/20 Exam Time: 909 REPORT STATUS: Signed Left ankle, 3 views Left foot, 3 views INDICATION: pain 20200401 Comparison: None available. Discussion: Multiple views of the left foot and ankle are negative for an acute displaced fracture or dislocation. Talar dome and ankle mortise are intact. Negative for tibiotalar joint effusion. Small plantar calcaneal spur is noted. Mild soft tissue swelling about the medial malleolus is noted. IMPRESSION: Negative for acute displaced fracture or dislocation of the left foot or ankle. Signed by: Preet Gates MD on 04/01/2020 10:01 AM Dictated By: PREET GATES MD 1001 Transcribed By: KELLEY on 04/01/20 1001 COPY TO: ERENDIRA DYE MD STD Panel - CT/GC RNA 2019-09-01 18:14:00 Test Item C. trachomatis RNA, TMA (test code = 0063423) NOT DETECTED N. gonorrhoeae RNA, TMA (test code = 3018724) NOT DETECTED REFERENCE RANGE: NOT DETECTED Methodology: [facility] Specialist Mediated Amplification (TMA)to detect RNA. The analytical performance characteristics of this assay,when used to test SurePath(TM) specimens have been determinedby [facility]. The modificationshave not been cleared or approved by the FDA. This assayhas been validated pursuant to the CLIA regulations andis used for clinical purposes. For additional information, please refer tohttps://education.[employer]/faq/XNS929(This link is being provided for informational/educational purposes only.) APRIL (test code = APRIL) Performing Lab *QDID [facility] [address] [place] [address] Jennifer Mart MD [facility] [id number] 08:31:00* Test Item Value Reference Range Interpretation Comments Result (test code = 6463-4) See comment APRIL (test code = APRIL) <10,000 col/mL Non-lactose f ermenting gram negative rods<10,000 col/mL Lactose fermenting gram negative rods [facility] [id number] 18:38:00* Test Item Value Reference Range Interpretation Comments WBC - wet prep (test code = 87486-4) Few white blood cells seen Clue cells - wet prep (test code = 31897-0) No clue cells seen Yeast - wet prep (test code = 09491-5) No budding yeast seen Trichomonas - wet prep (test code = 6565-6) No Trichomonas seen Bacteria - wet prep (test code = 37207-0) Few bacteria seen [facility] [id number] 18:38:00* Test Item Value Reference Range Interpretation [...] bacteria seen Urinalysis w/Microscopic + Reflex to [id number] 17:01:00* Test Item Value Reference Range Interpretation Comments Color, UA (test code = 5778-6) Yellow Clarity, UA (test code = 5767-9) Clear Specific Caroline, UA (test code = 5811-5) 1.025 1.001-1.035 pH, UA (test code = 5803-2) 5.5 5.0-8.0 Protein, UA (test code = 91368-0) Negative Negative Glucose, UA (test code = 365) Negative Negative Ketones, UA (test code = 2514-8) Negative Negative Bilirubin, UA (test code = 52326-0) Negative Negative Blood, UA (test code = 81767-8) Small Negative A Nitrite, UA (test code = 5802-4) Negative Negative Leukocytes, UA (test code = 5799-2) Moderate Negative A Urobilinogen, UA (test code = 52968-2) 0.2 mg/dL 0.2-1 Bacteria, UA (test code = 21272-4) Few RBC, UA (test code = 799-7) <5 /HPF WBC, UA (test code = 18399-1) 10-20 /HPF SQUAMOUS EPITHELIAL (test code = 85098-7) 5-10 /HPF Specimen Source (test code = 2795) Lab Interpretation (test code = 23112-6) [facility]normal [facility] UR[facility] [id number] 17:01:00* Test Item Value Reference Range Interpretation [...] /HPF SOURCE(BEAKER) (test code = 2795) Screen, [id number] 16:45:00* Test Item Value Reference Range Interpretation Comments Preg Test, Ur (test code = 2112-1) Negative [facility], [id number] 16:45:00* Test Item Value Reference Range Interpretation Comments TEST URINE (BEAKER) (test code = 583) Negative CT, MAXILLOFACIAL AREA, WO [id number] 11:07:00Reason for exam:->ASSAULT VICTIMReason for exam:->strangledPt got [...] Baker Robert MDReport Verified Date/Time: 01/07/2019 11:07:28 Sherman garrido Location: [address] Neuro Reading Room [id number] 12:27:00Negative (12/19/18 7:27 AM)[facility]ann[facility]M [id number] 16:45:52294Euakyifp HermannCHEM [id number] 16:45:00* Test Item Value Reference Range Interpretation Comments B/C Ratio (test code = B/C Ratio) 13 1 6-25 [facility] [id number] 16:45:0015.0[facility]ann[facility] PANEL 2018-06-22 16:45:0019[facility]ann[facility] [id number] 16:45:0025[facility]ann[facility] [id number] 16:45:002.0[facility] [id number] 16:45:008[facility] [id number] 16:45:000.63[facility]ann[facility] [id number] 16:45:97806Lwbpkuzw Hermann[facility] MWDME3711-02-49 16:45:0024 [facility] [id number] 16:45:22828Rwrfvtit HermannCHEM PANEL 2018-06-22 16:45:004.0[facility] [id number] 16:45:57075Jdncjbtl [facility] [id number] 16:45:008.0[facility] [id number] 16:45:00* Test Item Value Reference Range Interpretation Comments A/G Ratio (test code = A/G Ratio) 0.6 1 0.7-1.6 [facility] [id number] 16:45:003.6[facility]ann[facility] PANEL 2018-06-22 16:45:005.6[facility] [id number] 16:45:00<0.1[facility]ann[facility] [id number] 16:45:02203Bmfrygqu AybbrgzTEQYOFAPGH7914-89-30 10:24:0011.2[facility] PpoewakVUDRTCKCZT6977-67-71 10:24:0032.8[facility] BLOOD BANK [id number] 02:09:00Negative (06/20/18 8:09 PM)[facility] B[facility] B[facility] [id number] 02:09:00See Note 1(06/20/18 8:09 PM)[facility] [id number] 02:09:009.1[facility] ZDIRL0049-02-53 02:09:004.6[facility] RZVHW6550-32-05 02:09:48954Iuhozapt [facility]ann[facility] [id number] 02:09:50905Wrsmqgpb [facility] [id number] 02:09:63951 [facility] [id number] 02:09:00* Test Item Value Reference Range Interpretation Comments B/C Ratio (test code = B/C Ratio) 10 1 6-25 [facility] [id number] 02:09:0026[facility]annCHEM PANEL 2018-06-21 02:09:0016.6[facility] QWUGL5993-49-66 02:09:002.9[facility] WYZNA5667-73-80 02:09:0053[facility] [id number] 02:09:002.1[facility] FVRQS7506-76-32 02:09:0023[facility]ann[facility] VAPWS6955-23-61 02:09:000.62[facility]ann[facility] [id number] 02:09:006 [facility] [id number] 02:09:0079[facility]ann[facility] PANEL 2018-06-21 02:09:00* Test Item Value Reference Range Interpretation Comments A/G Ratio (test code = A/G Ratio) 0.6 1 0.7-1.6 [facility] [id number] 02:09:004.8[facility]ann[facility] PANEL 2018-06-21 02:09:007.7[facility]ann[facility] [id number] 02:09:71411Mxwnwukz [facility]DR[facility] [id number] 02:09:00Negative *NA*(06/20/18 8:09 PM)[facility] [id number] 02:09:00Negative *NA*(06/20/18 8:09 PM)[facility] [id number] 02:09:00See Note (06/20/18 8:09 PM)[facility] DRUG [id number] 02:09:00Negative *NA*(06/20/18 8:09 PM)[facility] DRUG [id number] 02:09:00Negative *NA*(06/20/18 8:09 PM)[facility] DRUG [id number] 02:09:00Negative *NA*(06/20/18 8:09 PM)[facility] DRUG [id number] 02:09:00Negative *NA*(06/20/18 8:09 PM)[facility] DRUG [id number] 02:09:00Negative *NA*(06/20/18 8:09 PM)[facility] UHPAGCRFJZ6480-93-74 02:09:0081.2[facility] PnsabzpSNDTUTYHTY9264-95-32 02:09:00 13.1[facility] RxeuevxLHGXCVATRT5523-62-42 02:09:005.2[facility] HermannHEMATOLOGY 2018-06-21 02:09:000.1[facility] KeqqdnhTXDGREZIST9582-05-43 02:09:000.4[facility] CgpijgrOBIAQYSOOS8567-10-98 02:09:001.8[facility] HxihygfJMDONQMTZR0240-68-68 02:09:0011.4[facility] ZrwxfrtHDZKBMPXLQ5558-54-07 02:09:000.7[facility] EUEMQJYNAY8835-11-64 02:09:000.1[facility] LrolhtgYCWYLNVHUE4296-89-15 02:09:008.6 [facility] IuozigeHDYQCSEJKA0201-44-88 02:09:0034.1[facility] 2018-06-21 02:09:00* Test Item Value Reference Range Interpretation Comments MCH (test code = MCH) 29.9 pg 27.0-31.0 [facility] CvkiyvkAHDESDQJEU4376-77-55 02:09:0014.2[facility] 2018-06-21 02:09:42299Dqvzlcto DhtxaqnEGWTGIKAME3787-08-49 02:09:0014.1[facility] CmpnbvxSAYPDXDTNW5045-52-26 02:09:004.96[facility] LmpuvuoGTLDLPBFEV7509-08-21 02:09:0014.8[facility] VbwigvdXQUHCQEVRR7180-99-74 02:09:0087.8[facility] OITOUNJNGB9658-97-36 02:09:0043.5[facility] JwiidhdENYTQETWPU0457-02-20 02:09:00 0.3[facility] GuwmpihTCMJGXDSJH9730-41-85 02:09:00Negative *NA*(06/20/18 8:09 PM) [facility] UxspejjPQGJXUJMVA2170-99-13 02:09:00Non-Reactive *NA*(06/20/18 8:09 PM) [facility] GexfpqxQBPROVWQAD5423-25-45 02:09:00Negative *NA*(06/20/18 8:09 PM) [facility] NJJGP2552-05-12 02:22:0017[facility] IKKSM0476-34-05 02:22:003[facility] XGEYZ0380-58-68 02:22:00 Moderate *ABN*(05/24/18 9:22 PM)[facility] [id number] 02:22:002.0[facility] [id number] 02:22:00Large *ABN*(05/24/18 9:22 PM)[facility] [id number] 02:22:00 Negative (05/24/18 9:22 PM)[facility] [id number] 02:22:00* Test Item Value Reference Range Interpretation Comments UA pH (test code = UA pH) 5.0 1 5.0-8.0 [facility] [id number] 02:22:00Negative *NA*(05/24/18 9:22 PM)[facility] [id number] 02:22:00* Test Item Value Reference Range Interpretation Comments UA Spec Grav (test code = UA Spec Grav) 1.017 1 [facility] [id number] 02:22:00Yellow *NA*(05/24/18 9:22 PM) [facility] [id number] 02:22:00Slight *ABN*(05/24/18 9:22 PM) [facility] [id number] 02:22:00Performed (05/24/18 9:22 PM) [facility] [id number] 02:22:0015[facility] [id number] 13:04:00* Test Item Value Reference Range Interpretation [...] = USPERM) /HPF NONE CT STONE PROTOCOL [id number] 13:03:45CT ABDOMEN AND PELVIS WITHOUT CONTRAST, RENAL STONE PROTOCOL:Location code: [id number] HISTORY: Left flank painCOMPARISON: NoneTECHNIQUE: Helical CT [...] cyst.3. Fatty infiltration of the liver.AMYLASE AND [id number] 12:56:00* Test Item Value Reference Range Interpretation Comments AMYLASE (test code = 10A) 50 U/L 28-100 LIPASE (test code = 60A) 123 IU/L 73-393 COMPREHENSIVE METABOLIC [id number] 12:56:00* Test Item Value Reference Range Interpretation [...] code = 31A) 69 IU/L <=78 SERUM [id number] 12:42:00* Test Item Value Reference Range Interpretation [...]
== END 2020-07-07 01:09 | disposition home or self-care (01) ==
LOC: FSED 00:45
DX: B37.3 Candidiasis of vulva and vagina (principal); R30.0 Dysuria; N39.0 Urinary tract infection, site not specified; F31.9 Bipolar disorder, unspecified
CPT/HCPCS: 36415; 81003; 81025; 82948; 96372; 99284; J1885

== ENCOUNTER 2020-08-10 09:05 | Emergency (ER) | payer OTHER ==
[~2020-08-10] VITALS: Ht 160 cm; Wt 136.1 kg
[~2020-08-10 09:05] MED LIST changes: +CIPRO500 MG PO; +DIFLUCAN200 MG PO
[2020-08-10] MEDS ORDERED: SODIUM CHLORIDE 0.9% 1000ML 0 ML ONE (09:23)
[2020-08-10] MEDS ORDERED: ONDANSETRON HCL INJ 2MG/ML 2ML 2 MG/ML VIAL ONE (09:23)
[2020-08-10] MEDS ORDERED: FAMOTIDINE 20 MG/2 ML VIAL IV ONE (09:23)
[2020-08-10] MEDS ORDERED: OMEPRAZOLE20 M1 PO (09:37)
[2020-08-10] MEDS ORDERED: FLUCONAZOLE100 MG PO (09:37)
[2020-08-10] MEDS ORDERED: MAALOX MAXIMUM355 ML PO (09:37)
[2020-08-10] MEDS ORDERED: CEFDINIR300 MG PO (09:37)
[2020-08-10] MEDS ORDERED: ULTRACET TABLE1 EACH PO (09:37)
[2020-08-10] MEDS ORDERED: ZOFRAN4 MG PO (09:37)
[2020-08-10] MEDS ORDERED: ONDANSETRON HCL 4 MG ORAL DISINTEGRATING TAB ONE (10:06)
[2020-08-10] MEDS ORDERED: ONDANSETRON HCL 4 MG ORAL DISINTEGRATING TAB PO ONE (10:30)
== END 2020-08-10 10:00 | disposition home or self-care (01) ==
LOC: FSED 09:23
DX: R10.13 Epigastric pain (principal); R11.2 Nausea with vomiting, unspecified; K52.9 Noninfective gastroenteritis and colitis, unspecified; N39.0 Urinary tract infection, site not specified; F31.9 Bipolar disorder, unspecified
CPT/HCPCS: 81003; 81025; 99283; Q0162; J2405; J7030

== ENCOUNTER 2020-11-28 04:34 | Emergency (ER) | payer OTHER ==
[~2020-11-28] VITALS: Ht 160 cm; Wt 113.4 kg
[~2020-11-28 04:34] MED LIST changes: +CEFDINIR300 MG PO; +FLUCONAZOLE100 MG PO; +MAALOX MAXIMUM355 ML PO; +OMEPRAZOLE20 M1 PO; +ULTRACET TABLE1 EACH PO; +ZOFRAN4 MG PO
[2020-11-28] MEDS ORDERED: KETOROLAC TROME10 MG PO (05:16)
[2020-11-28] MEDS ORDERED: NYSTATIN100000 UNI PO (05:16)
[2020-11-28] MEDS ORDERED: LIDOCAINE VISC 2% SOLN 15 ML UDC ONE (05:16)
[2020-11-28] MEDS ORDERED: LIDOCAINE VISC 2% SOLN 15 ML UDC PO ONE (05:45)
== END 2020-11-28 05:45 | disposition home or self-care (01) ==
LOC: FSED 04:45
DX: B37.0 Candidal stomatitis (principal); F31.9 Bipolar disorder, unspecified
CPT/HCPCS: 99283

== ENCOUNTER 2021-08-18 10:23 | Emergency (ER) | payer OTHER ==
[~2021-08-18] VITALS: Ht 160 cm; Wt 153.0 kg
[~2021-08-18 10:23] MED LIST changes: +KETOROLAC TROME10 MG PO; +NYSTATIN100000 UNI PO
[2021-08-18] MEDS ORDERED: ONDANSETRON HCL 4 MG ORAL DISINTEGRATING TAB PO ONE (11:15)
[2021-08-18] MEDS ORDERED: IBUPROFEN 400 MG TAB PO ONE (11:15)
[2021-08-18] MEDS ORDERED: FLUVOXAMINE MA100 MG PO (11:19)
[2021-08-18] MEDS ORDERED: ONDANSETRON ODT4 MG PO (11:20)
[2021-08-18] MEDS ORDERED: TESSALON PERLE100 MG PO (11:21)
[2021-08-18] MEDS ORDERED: ONDANSETRON HCL 4 MG ORAL DISINTEGRATING TAB ONE (11:25)
[2021-08-18] MEDS ORDERED: IBUPROFEN 400 MG TAB ONE (11:26)
== END 2021-08-18 11:30 | disposition home or self-care (01) ==
LOC: FSED 11:13
DX: U07.1 COVID-19 (principal); E66.9 Obesity, unspecified; E86.0 Dehydration; Z68.43 Body mass index [BMI] 50.0-59.9, adult
CPT/HCPCS: 99283; Q0162

== ENCOUNTER 2021-11-20 12:01 | Emergency (ER) | payer OTHER ==
[~2021-11-20] VITALS: Ht 160 cm; Wt 157.2 kg
[~2021-11-20 12:01] MED LIST changes: +FLUVOXAMINE MA100 MG PO; +ONDANSETRON ODT4 MG PO
[2021-11-20] MEDS ORDERED: MOBIC15 MG PO (12:24)
[2021-11-20] MEDS ORDERED: ACETAMINOPHEN-1 EAC4 (12:24)
[2021-11-20] MEDS ORDERED: ONDANSETRON ODT4 MG PO (12:33)
[2021-11-20] MEDS ORDERED: NEURONTIN300 MG PO (15:31)
== END 2021-11-20 12:43 | disposition home or self-care (01) ==
LOC: FSED 12:06
DX: M25.512 Pain in left shoulder (principal); G89.29 Other chronic pain
CPT/HCPCS: 99283

== ENCOUNTER 2022-05-23 14:10 | Emergency (ER) | payer OTHER ==
[~2022-05-23] VITALS: Ht 160 cm; Wt 157.9 kg
[~2022-05-23 14:10] MED LIST changes: +ACETAMINOPHEN-1 EAC4; +MOBIC15 MG PO; +NEURONTIN300 MG PO
[2022-05-23] MEDS ORDERED: PREDNISONE 10 MG TAB PO STA (14:50)
[2022-05-23] MEDS ORDERED: KETOROLAC TROMETHAMINE 60 MG/2 ML VIAL IM STA (14:50)
[2022-05-23] MEDS ORDERED: PREDNISONE 20 MG TAB ONE (15:18)
[2022-05-23] MEDS ORDERED: KETOROLAC TROMETHAMINE 60 MG/2 ML VIAL ONE (15:18)
[2022-05-23] MEDS ORDERED: HYDROCODON-ACE1 EAC9 PO (15:34)
== END 2022-05-23 15:42 | disposition home or self-care (01) ==
LOC: FSED 14:42
DX: M54.50 Low back pain, unspecified (principal); G89.29 Other chronic pain; E66.9 Obesity, unspecified
CPT/HCPCS: 96372; 99283; J1885; J7512 ×2

== ENCOUNTER 2022-09-24 12:58 | Emergency (ER) | payer OTHER ==
[~2022-09-24] VITALS: Ht 160 cm; Wt 157.9 kg
[~2022-09-24 12:58] MED LIST changes: +HYDROCODON-ACE1 EAC9 PO
[2022-09-24] MEDS ORDERED: KETOROLAC TROMETHAMINE 60 MG/2 ML VIAL IM ONE (13:15)
[2022-09-24] MEDS ORDERED: NAPROSYN500 MG PO (13:23)
== END 2022-09-24 13:39 | disposition home or self-care (01) ==
LOC: ER 13:07
DX: M79.672 Pain in left foot (principal); G89.29 Other chronic pain; E66.01 Morbid (severe) obesity due to excess calories
CPT/HCPCS: 99283; J1885

== ENCOUNTER 2022-09-24 13:30 | Emergency (ER) | payer OTHER ==
[~2022-09-24] VITALS: Ht 160 cm; Wt 157.9 kg
[~2022-09-24 13:30] MED LIST changes: +NAPROSYN500 MG PO
[2022-09-24] MEDS ORDERED: HYDROCODONE/APAP 5MG-325MG TAB PO ONE (15:15)
[2022-09-24] MEDS ORDERED: HYDROCODONE/APAP 5MG-325MG TAB ONE (15:43)
== END 2022-09-24 15:32 | disposition home or self-care (01) ==
LOC: FSED 13:33
DX: M79.672 Pain in left foot (principal); G89.29 Other chronic pain; E66.9 Obesity, unspecified
CPT/HCPCS: 99283

== ENCOUNTER 2023-09-03 12:29 | Emergency (ER) | payer OTHER ==
[~2023-09-03] VITALS: Ht 160 cm; Wt 155.8 kg
[2023-09-03] MEDS: IBUPROFEN 600 MG TAB PO STA ×2 (13:10→13:50)
[2023-09-03 13:20] VITALS: O2SAT 100
[2023-09-03] MEDS ORDERED: IBUPROFEN 600 MG TAB ONE (14:08)
== END 2023-09-03 14:15 | disposition home or self-care (01) ==
LOC: FSED 12:42
DX: M25.572 Pain in left ankle and joints of left foot (principal); M25.472 Effusion, left ankle; X50.1XXA Overexertion from prolonged static or awkward postures, initial encounter; Y93.01 Activity, walking, marching and hiking; Y92.89 Other specified places as the place of occurrence of the external cause; M54.9 Dorsalgia, unspecified; G89.29 Other chronic pain; E66.9 Obesity, unspecified
CPT/HCPCS: 99283

== ENCOUNTER 2024-02-27 00:27 | Emergency (ER) | payer OTHER ==
[~2024-02-27] VITALS: Ht 160 cm; Wt 155.6 kg
[2024-02-27 00:37] VITALS: PULSE 73; RESP 18; TEMP 99.2
[2024-02-27] MEDS: TRAMADOL HCL 50 MG TAB PO ONE (01:02)
[2024-02-27] MEDS: KETOROLAC TROMETHAMINE 30 MG/ML VIAL IM STA (01:02)
[2024-02-27] MEDS ORDERED: CEPHALEXIN500 MG PO (01:06)
[2024-02-27] MEDS ORDERED: KETOROLAC TROME10 MG PO (01:07)
[2024-02-27 01:28] VITALS: BP 154/65; PULSE 76; RESP 18; TEMP 98.9; O2SAT 99
== END 2024-02-27 01:15 | disposition home or self-care (01) ==
LOC: FSED 00:30
DX: M25.572 Pain in left ankle and joints of left foot (principal); L03.116 Cellulitis of left lower limb; E66.9 Obesity, unspecified
CPT/HCPCS: 99283; J1885